=== PATIENT | male | born 1980 | race Caucasian/White ===

== ENCOUNTER 2022-06-23 22:53 | Inpatient (IN) | payer MEDICAID, SELFPAY ==
[2022-06-23 22:56] VITALS: BP 136/80; PULSE 116; RESP 15; TEMP 37.4; O2SAT 98; BMI 42.5
[2022-06-23 22:59] VITALS: BP 136/80; PULSE 114; RESP 16; O2SAT 97
[2022-06-23 23:38] LABS: Absolute Lymphocyte Count 1.86 X10^3/uL (0.83-4.51); Absolute Neutrophil Count 3.5 X10^3/uL (2.0-7.7); Basophil# 0.04 X10^3/uL; Basophil% 0.7 % (0-1); Eosinophil# 0.07 X10^3/uL; Eosinophils% 1.2 % (0-5); Hematocrit 39.9 % (40-54); Hemoglobin 12.4 g/dL (13.0-16.5); Lymphocyte # 1.86 X10^3/ul (0.83-4.51); Lymphocyte % 31.7 % (19-41); Mean Corp Hgb Conc 31.1 g/dL (32-36); Mean Corpuscular Hgb 23.7 pg (27.0-32.0); Mean Corpuscular Volume 76.3 fL (80-94); Mean Platelet Vol. 9.2 fl (6.2-12.0); Monocyte# 0.36 X10^3/uL; Monocyte% 6.1 % (0-10); NRBC Flagged by Analyzer 0 % (0-5); Neutrophil # 3.51 X10^3/uL (2.7-7.7); Neutrophil % 59.8 % (47-70); Platelet Count 318 K/mm3 (150-450); RBC Distribution Width CV 17.9 % (11.6-14.6); RBC Distribution Width SD 46.5 fl (35.1-43.9); Red Blood Count 5.23 M/mm3 (4.6-6.2); White Blood Count 5.9 K/mm3 (4.4-11.0)
--- NOTE | 2022-06-23 23:46 | EX.ED.SAOD ---
HPI History of Present Illness Chief Complaint: Substance Abuse Informant: patient Narrative Narrative: Patient is a 41-year-old male with history of alcohol abuse as well as DTs, hypertension and GERD presenting for request of alcohol detox. Patient states he drinks malt liquor, 15 to 20 cans a day. He is been drinking regularly for 4 months. His last drink was 2 hours prior to arrival. Does use marijuana but denies any other illicit drug use or tobacco use. Try to go to another detox facility in [place] yesterday but had been banned from there. Has not been to our facility before. Denies any physical complaints at this time. PFSH PFS Home Medications aripiprazole 5 mg tablet (Abilify) 5 mg PO DAILY 06/23/22 [History Last Taken Unknown] escitalopram oxalate 20 mg tablet (Lexapro) 20 mg PO DAILY 06/23/22 [History Last Taken Unknown] levothyroxine 150 mcg tablet 150 mcg PO DAILY 06/23/22 [History Last Taken Unknown] lisinopril 40 mg tablet 40 mg PO DAILY 06/23/22 [History Last Taken Unknown] pantoprazole 40 mg tablet,delayed release (Protonix) 40 mg PO DAILY 06/23/22 [History Last Taken Unknown] Allergy/AdvReac Type Severity Reaction Status Date / Time haloperidol [From Haldol] AdvReac Other Verified 06/23/22 22:59 Social History Smoking Status: Former smoker ROS ROS ED Constitutional Constitutional ED: Denies chills or fever(s) Eyes Eyes: Denies change in vision ENT ENT ED: Denies rhinorrhea or sore throat Cardiovascular Cardiovascular: Denies chest pain or palpitations Respiratory/Chest Respiratory/Chest: Denies cough or dyspnea Gastrointestinal Gastrointestinal: Denies abdominal pain, nausea or vomiting Musculoskeletal Musculoskeletal: Denies arthralgias or myalgias Integumentary Denies rash Neurologic Neurologic: Denies headache(s) Psychiatric Psychiatric: Denies anxiety EXAM Physical Exam Const Vital Signs: 06/23/22 22:56 06/23/22 22:59 Temperature 99.3 F H Temperature Source Oral Pulse Rate 116 H 114 H Respiratory Rate 15 16 Blood Pressure 136/80 H 136/80 H Blood Pressure Mean 98 98 Blood Pressure Source Monitor Blood Pressure Position Semi-Fowlers Blood Pressure Location Right Arm Pulse Ox 98 97 Oxygen Delivery Method Room Air Room Air Positive well nourished and obese Constitutional Narrative: Patient singing to himself General Appearance ED: NAD Nutritional Appearance: obese HEENT Reports moist mucous membranes atraumatic Eyes PERRL Neck supple and no JVD Chest Wall inspection of chest normal Resp normal respiratory effort and clear to auscultation bilaterally Cardio regular rate, regular rhythm and no murmurs GI soft to palpation, non-tender and non-distended Neuro oriented x3 and no sensory deficits noted Motor Exam: Negative for general weakness Psych mental status grossly normal and thought process normal Psych Narrative: Patient cooperative but clinically intoxicated Skin Lesions: no lesions Rashes: no rashes MDM MDM MDM Narrative Medical decision making narrative: Patient evaluated for request of alcohol detox. He is agreeable with the plan of care. He is mildly tachycardic in the ER however I do not think he is acutely withdrawing at this time. Will obtain screening labs and discussed the case with hospitalist for admission for detox. Lab Data Labs: Laboratory Results - last 24 hr 06/23/22 06/23/22 06/23/22 23:17 23:17 23:17 WBC 5.9 RBC 5.23 Hgb 12.4 L Hct 39.9 L MCV 76.3 L MCH 23.7 L MCHC 31.1 L RDW Std Deviation 46.5 H RDW Coeff of Nasima 17.9 H Plt Count 318 MPV 9.2 Immature Gran % (Auto) 0.500 Neut % (Auto) 59.8 Lymph % (Auto) 31.7 [place] % (Auto) 6.1 Eos % (Auto) 1.2 Baso % (Auto) 0.7 Absolute Neuts (auto) 3.5 Absolute Lymphs (auto) 1.86 Nucleated RBC % 0 Sodium 146 H Potassium 3.3 L Chloride 112 H Carbon Dioxide 25.0 Anion Gap 9 BUN 7 Creatinine 0.93 Estim Creat Clear Calc 124.93 Est GFR (MDRD) Af Amer 114 Est GFR (MDRD) Non-Af 94 BUN/Creatinine Ratio 7.5 L Glucose 115 H Calcium 8.9 Total Bilirubin 0.20 AST 21 ALT 31 Alkaline Phosphatase 84 Total Protein 7.5 Albumin 3.8 Globulin 3.7 Albumin/Globulin Ratio 1.0 Ur Drug Screen Comment Ethyl Alcohol 234.0 08/03/22 23:54 WBC RBC Hgb Hct MCV MCH MCHC RDW Std Deviation RDW Coeff of Nasima Plt Count MPV Immature Gran % (Auto) Neut % (Auto) Lymph % (Auto) [place] % (Auto) Eos % (Auto) Baso % (Auto) Absolute Neuts (auto) Absolute Lymphs (auto) Nucleated RBC % Sodium Potassium Chloride Carbon Dioxide Anion Gap BUN Creatinine Estim Creat Clear Calc Est GFR (MDRD) Af Amer Est GFR (MDRD) Non-Af BUN/Creatinine Ratio Glucose Calcium Total Bilirubin AST ALT Alkaline Phosphatase Total Protein Albumin Globulin Albumin/Globulin Ratio Ur Drug Screen Comment Ethyl Alcohol Discharge Plan Dx/Rx/DC Orders Clinical Impression: Alcohol abuse, Alcohol intoxication, Hypertension, Hypernatremia, Hypokalemia Disposition Disposition: Acute Care Hospital [facility]
[2022-06-23 23:55] LABS: AST(SGOT) 21 U/L (15-37); Alanine Aminotransfer ALT/SGPT 31 U/L (16-61); Albumin, Serum 3.8 g/dL (3.2-5.0); Alkaline Phosphatase 84 U/L (45-117); Anion Gap 9 (5-15); BUN 7 mg/dL (7-18); BUN/Creat Ratio 7.5 RATIO (10-20); Calcium,Total 8.9 mg/dL (8.5-10.1); Chloride 112 mmol/L (98-107); Creatinine, Serum 0.93 mg/dL (0.70-1.30); EST Glomerular Filtration Rate 94 mL/min (>60); Est Glom Filt Rate - Afr Amer 114 mL/min (>60); Estimated Creatinine Clearance 124.93 ml/min; Globulin 3.7 g/dL (2.2-4.2); Glucose 115 mg/dL (74-106); Potassium 3.3 mmol/L (3.5-5.1); Protein, Total 7.5 g/dL (6.4-8.2); Sodium Level 146 mmol/L (136-145)
[2022-06-24] VITALS (7 sets, daily range): BP systolic 127–158; BP diastolic 74–98; PULSE 74–110; RESP 14–18; TEMP 36.3–37.2; O2SAT 93–98; BMI 42.0
--- NOTE | 2022-06-24 00:09 | PCM.HP.STD ---
HPI - General General Date of Admission: 06/24/22 Date of Service: 06/24/22 Chief Complaint: Request for medical stabilisation HPI Narrative CHEN KIRBY, is a 41 M who presents requesting for medical stabilization. Patient has history of chronic alcohol abuse. He was last in detox more than 6 months ago in [facility]. He drinks more than 12 bottles of beer daily. The EMS was dispatched for a male intoxicated at the [employer] restaurant. Upon arrival, the foundry manager said the patient showed up to the restaurant requesting for the squad, to send him to the hospital for detox, and a Mcchicken sandwich. He called the squad and gave the pito a McChicken. Patient stated to EMS that he presented from [place] and was supposed to be at [facility] in [place], [place] where he was told he did not need detox;he just needs [place]. Patient supposedly left. He admitted to drinking 11 of 24 ounce of steel reserve today. At the time of being seen, patient admits to still feeling intoxicated. He stated that he has history of DTs with hallucinations during the course of his detox. He is tired of living like a drunk. He wants to be clean. Vitals in ED showed blood pressure 136/80, heart rate 116, respiratory 16, temperature 99.3 F, SPO2 90% on room air. His RBC count of 5.9, hemoglobin 12.4, platelet count 318, sodium 146, potassium 3.2, chloride 112, bicarbonate 25, BUN 7, creatinine 0.93, glucose 115, LFTs unremarkable. Urine tox positive for barbiturates, benzodiazepines, cannabinoids. Admitting alcohol level was 234 [facility] Medical History (Updated 06/24/22 @ 00:[address] Vicki Reyes MD) Alcohol abuse Anxiety and depression Hypertension Hypothyroidism Morbid obesity Home Medications aripiprazole 5 mg tablet (Abilify) 5 mg PO DAILY 06/23/22 [History Last Taken Unknown] escitalopram oxalate 20 mg tablet (Lexapro) 20 mg PO DAILY 06/23/22 [History Last Taken Unknown] levothyroxine 150 mcg tablet 150 mcg PO DAILY 06/23/22 [History Last Taken Unknown] lisinopril 40 mg tablet 40 mg PO DAILY 06/23/22 [History Last Taken Unknown] pantoprazole 40 mg tablet,delayed release (Protonix) 40 mg PO DAILY 06/23/22 [History Last Taken Unknown] Allergy/AdvReac Type Severity Reaction Status Date / Time haloperidol [From Haldol] AdvReac Other Verified 06/23/22 22:59 Family History (Updated 06/24/22 @ 00:[address] Vicki Reyes MD) Father Diabetes Mother CAD (coronary artery disease) Surgical History (Updated 06/24/22 @ 00:[address] Vicki Reyes MD) History of appendectomy Social History (Updated 06/24/22 @ 00:[address] Vicki Reyes MD) Smoking Status: Former smoker alcohol intake: current Previous attempts at quittin substance use type: marijuana ROS ROS Narrative Constitutional: Denies: Anorexia, Chills, Fever, Night Sweats, Weight Change Eyes: Denies: Blurred vision, Cataracts, Conjunctivae Inflammation, Pain, Redness, Vision Change HEENT: Denies: Difficulty Hearing, Difficulty Swallowing, Head Aches, Hearing Changes, Sinus Congestion, Sinus Drainage Cardiovascular: Denies: Chest Pain, Orthopnea, Palpitations Respiratory: Denies: Cough, Shortness of breath at rest, Sputum production Gastrointestinal: Admits to nausea denies: Abdominal Pain, Vomiting Genitourinary: Denies: Dysuria Musculoskeletal: Denies: Joint Pain, Joint stiffness, Joint swelling, Joint Tenderness Skin: Denies: Rash, Wounds Neurological: Denies: Numbness, Tingling, Focal weakness Vital Signs Vital Signs Vital Signs: 06/23/22 22:56 06/23/22 22:59 Temperature 99.3 F H Temperature Source Oral Pulse Rate 116 H 114 H Respiratory Rate 15 16 Blood Pressure 136/80 H 136/80 H Blood Pressure Mean 98 98 Blood Pressure Source Monitor Blood Pressure Position Semi-Fowlers Blood Pressure Location Right Arm Pulse Ox 98 97 Oxygen Delivery Method Room Air Room Air Weight Weight: 154.6 kg Body Mass Index (BMI) 42.5 Physical Exam Narrative Physical exam: General: Alert, Oriented x3, Cooperative, appears disheveled, morbidly obese HEENT: Atraumatic Oral: Moist Mucosa Neck: Supple Lungs: Diminished to auscultation Cardiovascular: HS I+II, regular, no murmurs Abdomen: Bowel Sounds Present, Soft, Non Tender Extremities: No edema Skin: No rashes, No breakdown Neurological: Grossly intact Psych/Mental Status: Appropriate Results Lab / Micro Data Result Diagrams: 06/23/22 23:17 06/23/22 23:17 Labs: Laboratory Results - last 24 hr 06/23/22 23:17: WBC 5.9, RBC 5.23, Hgb 12.4 L, Hct 39.9 L, MCV 76.3 L, MCH 23.7 L, MCHC 31.1 L, RDW Std Deviation 46.5 H, RDW Coeff of Nasima 17.9 H, Plt Count 318, MPV 9.2, Immature Gran % (Auto) 0.500, Neut % (Auto) 59.8, Lymph % (Auto) 31.7, Allen % (Auto) 6.1, Eos % (Auto) 1.2, Baso % (Auto) 0.7, Absolute Neuts (auto) 3.5, Absolute Lymphs (auto) 1.86, Nucleated RBC % 0 06/23/22 23:17: Sodium 146 H, Potassium 3.3 L, Chloride 112 H, Carbon Dioxide 25.0, Anion Gap 9, BUN 7, Creatinine 0.93, Estim Creat Clear Calc 124.93, Est GFR (MDRD) Af Amer 114, Est GFR (MDRD) Non-Af 94, BUN/Creatinine Ratio 7.5 L, Glucose 115 H, Calcium 8.9, Total Bilirubin 0.20, AST 21, ALT 31, Alkaline Phosphatase 84, Total Protein 7.5, Albumin 3.8, Globulin 3.7, Albumin/Globulin Ratio 1.0 06/23/22 23:17: Ethyl Alcohol 234.0 06/23/22 23:54: Ur Drug Screen Comment Assessment & Plan Assessment/Plan (1) Alcohol abuse: (2) Alcohol intoxication: (3) Anxiety and depression: (4) Morbid obesity: (5) Hypothyroidism: PLAN: Plan 1. Request for medical stabilization for acute alcohol withdrawal Admitting alcohol level was 234 Admit to [facility], start on phenobarb taper, [facility] withdrawal protocol, folic acid, multivitamin, and thiamine 2. Hypokalemia, replaced, recheck in a.m. 3. Hypernatremia, likely secondary to dehydration, sodium is 146 Continue IV fluids, recheck in a.m. 4. Hypertension, continue lisinopril 5. Hypothyroidism, continue Synthroid 6. GERD, continue PPI 7. Anxiety/depression, continue Lexapro, Abilify, 8. DVT prophylaxis?early ambulation Charges/Coding Visit Charges Inpatient E&M: 84047 Init Hosp L3
[2022-06-24 00:12] LABS: Amphetamine Urine VISTA NEGATIVE (<1000 ng/mL); Barbiturate Urine VISTA POSITIVE (< 200 ng/mL); Benzodiazepine Urine VISTA POSITIVE (< 200 ng/mL); Cocaine Urine VISTA NEGATIVE (< 300 ng/mL); Ecstacy Urine VISTA NEGATIVE (< 500 ng/mL); Methadone Urine VISTA NEGATIVE (< 300 ng/mL); PCP Urine VISTA NEGATIVE (< 25 ng/mL); THC Urine VISTA POSITIVE (< 50 ng/mL); Vista UDS pH Range 4
[2022-06-24] MEDS: Potassium Chloride Oral Tablet 20 MEQ PO ×2 (00:12→02:35)
[2022-06-24] MEDS: 0.9% Normal Saline 1,000 ML 999 ML IV (00:12)
[2022-06-24] MEDS: Phenobarbital 32.4 MG Tablet 64.8 MG PO ×6 (01:30→21:23)
[2022-06-24] MEDS: Lactated Ringers 1,000 ML 100 ML IV ×2 (01:41→11:36)
[2022-06-24] MEDS: Levothyroxine 150 MCG Tablet PO (05:48)
[2022-06-24 06:33] LABS: Absolute Lymphocyte Count 1.78 X10^3/uL (0.83-4.51); Absolute Neutrophil Count 2.7 X10^3/uL (2.0-7.7); Basophil# 0.04 X10^3/uL; Basophil% 0.8 % (0-1); Eosinophil# 0.13 X10^3/uL; Eosinophils% 2.6 % (0-5); Hematocrit 35.9 % (40-54); Hemoglobin 11.6 g/dL (13.0-16.5); Lymphocyte # 1.78 X10^3/ul (0.83-4.51); Lymphocyte % 35.5 % (19-41); Mean Corp Hgb Conc 32.3 g/dL (32-36); Mean Corpuscular Hgb 24.2 pg (27.0-32.0); Mean Corpuscular Volume 74.9 fL (80-94); Mean Platelet Vol. 9.2 fl (6.2-12.0); Monocyte# 0.35 X10^3/uL; NRBC Flagged by Analyzer 0 % (0-5); Neutrophil # 2.69 X10^3/uL (2.7-7.7); Neutrophil % 53.7 % (47-70); Platelet Count 291 K/mm3 (150-450); RBC Distribution Width CV 17.5 % (11.6-14.6); Red Blood Count 4.79 M/mm3 (4.6-6.2)
[2022-06-24 06:46] LABS: ALB/GLOB Ratio 0.9 RATIO (0.9-2.4); AST(SGOT) 21 U/L (15-37); Alanine Aminotransfer ALT/SGPT 32 U/L (16-61); Albumin, Serum 3.2 g/dL (3.2-5.0); Alkaline Phosphatase 79 U/L (45-117); Anion Gap 8 (5-15); BUN 8 mg/dL (7-18); BUN/Creat Ratio 9.9 RATIO (10-20); Calcium,Total 7.9 mg/dL (8.5-10.1); Chloride 112 mmol/L (98-107); Creatinine, Serum 0.81 mg/dL (0.70-1.30); EST Glomerular Filtration Rate 111 mL/min (>60); Est Glom Filt Rate - Afr Amer 135 mL/min (>60); Estimated Creatinine Clearance 143.44 ml/min; Globulin 3.6 g/dL (2.2-4.2); Glucose 96 mg/dL (74-106); Potassium 3.4 mmol/L (3.5-5.1); Protein, Total 6.8 g/dL (6.4-8.2); Sodium Level 146 mmol/L (136-145)
[2022-06-24] MEDS: hydrOXYzine PAM 25 MG Capsule 50 MG PO (08:10)
[2022-06-24] MEDS: ARIPiprazole 5 MG Tablet PO (08:10)
[2022-06-24] MEDS: Pantoprazole Sodium 40 MG Tablet PO (08:10)
[2022-06-24] MEDS: Folic Acid 1 MG Tablet PO (08:10)
[2022-06-24] MEDS: Lisinopril 40 MG Tablet PO (08:11)
[2022-06-24] MEDS: Escitalopram Oxalate 20 MG Tablet PO (08:11)
[2022-06-24] MEDS: Thiamine Hydrochloride 100 MG Tablet PO (08:12)
[2022-06-24] MEDS: Ibuprofen 600 MG Tablet PO ×2 (08:21→19:33)
[2022-06-24] MEDS: Gabapentin 300 MG Capsule PO (12:27)
[2022-06-24] MEDS: Acetaminophen 500 MG Tablet PO (16:09)
--- NOTE | 2022-06-24 16:46 | PCM.PN.HOSP ---
Subjective Subjective Patient was seen and examined today, he is alert and does not appear to be anxious or tremorous. Patient has no complaints of any anxiety. Objective Data Objective Data Vital Signs: Vital Signs Temp Pulse Resp BP Pulse Ox O2 Del Method 97.9 F 95 18 146/89 H 95 Room Air 06/24/22 14:00 06/24/22 14:00 06/24/22 14:00 06/24/22 14:00 06/24/22 14:00 06/24/22 14:00 Oxygen Delivery Method Room Air Weight: 152.5 kg Body Mass Index (BMI) 42.0 Intake & Output: Intake and Output for Last 24 Hours 06/22/22 06/23/22 06/24/22 23:59 23:59 23:59 Intake Total 2471.67 / 2471.67 Balance 2471.67 / 2471.67 Lab / Micro Data Result Diagrams: 06/24/22 05:28 06/24/22 05:28 Labs: Laboratory Results - last 24 hr 06/23/22 23:17: WBC 5.9, RBC 5.23, Hgb 12.4 L, Hct 39.9 L, MCV 76.3 L, MCH 23.7 L, MCHC 31.1 L, RDW Std Deviation 46.5 H, RDW Coeff of Nasima 17.9 H, Plt Count 318, MPV 9.2, Immature Gran % (Auto) 0.500, Neut % (Auto) 59.8, Lymph % (Auto) 31.7, [place] % (Auto) 6.1, Eos % (Auto) 1.2, Baso % (Auto) 0.7, Absolute Neuts (auto) 3.5, Absolute Lymphs (auto) 1.86, Nucleated RBC % 0 06/23/22 23:17: Sodium 146 H, Potassium 3.3 L, Chloride 112 H, Carbon Dioxide 25.0, Anion Gap 9, BUN 7, Creatinine 0.93, Estim Creat Clear Calc 124.93, Est GFR (MDRD) Af Amer 114, Est GFR (MDRD) Non-Af 94, BUN/Creatinine Ratio 7.5 L, Glucose 115 H, Calcium 8.9, Total Bilirubin 0.20, AST 21, ALT 31, Alkaline Phosphatase 84, Total Protein 7.5, Albumin 3.8, Globulin 3.7, Albumin/Globulin Ratio 1.0 06/23/22 23:17: Ethyl Alcohol 234.0 06/23/22 23:54: Urine Opiates Screen NEGATIVE, Urine Methadone Screen NEGATIVE, Ur Barbiturates Screen POSITIVE H, Ur Phencyclidine Scrn NEGATIVE, Ur Amphetamines Screen NEGATIVE, MDMA (Ecstasy) Screen NEGATIVE, U Benzodiazepines Scrn POSITIVE H, Urine Cocaine Screen NEGATIVE, U Cannabinoids Screen POSITIVE H, Ur Drug Screen Comment 06/24/22 05:28: WBC 5.0, RBC 4.79, Hgb 11.6 L, Hct 35.9 L, MCV 74.9 L, MCH 24.2 L, MCHC 32.3, RDW Std Deviation 46.0 H, RDW Coeff of Nasima 17.5 H, Plt Count 291, MPV 9.2, Immature Gran % (Auto) 0.400, Neut % (Auto) 53.7, Lymph % (Auto) 35.5, [place] % (Auto) 7.0, Eos % (Auto) 2.6, Baso % (Auto) 0.8, Absolute Neuts (auto) 2.7, Absolute Lymphs (auto) 1.78, Nucleated RBC % 0 06/24/22 05:28: Sodium 146 H, Potassium 3.4 L, Chloride 112 H, Carbon Dioxide 26.0, Anion Gap 8, BUN 8, Creatinine 0.81, Estim Creat Clear Calc 143.44, Est GFR (MDRD) Af Amer 135, Est GFR (MDRD) Non-Af 111, BUN/Creatinine Ratio 9.9 L, Glucose 96, Calcium 7.9 L, Total Bilirubin 0.20, AST 21, ALT 32, Alkaline Phosphatase 79, Total Protein 6.8, Albumin 3.2, Globulin 3.6, Albumin/Globulin Ratio 0.9 Physical Exam Const alert, oriented x3 and no apparent distress Constitutional Narrative: Patient is morbidly obese General Appearance: cooperative, well kempt and well developed Orientation / Consciousness: awake, oriented to person, oriented to place and oriented to time HEENT normocephalic, head/scalp atraumatic and moist oral mucous membranes Eyes PERRL, EOMs intact bilaterally and conjunctivae normal Neck supple, no JVD and thyroid normal General: trachea midline Resp normal respiratory effort, no retractions, no use of accessory muscles and clear to auscultation bilaterally Auscultation: Negative for rales, rhonchi or wheezes Cardio regular rate, regular rhythm, S1 normal heart sound, S2 normal heart sound, no murmurs, no rub and no gallops GI normal to inspection, nondistended, normoactive bowel sounds, soft to palpation, non-tender and non-distended Extremity no clubbing, cyanosis or edema Skin no rashes or lesions noted General Skin Exam: no breakdown Neuro oriented x3, CN's II-XII intact bilaterally, moves all extremities, no focal motor deficits and no sensory deficits noted Sensorium / Orientation: awake and alert Speech: speech normal Psych Psych Narrative: Patient has flat affect Assessment & Plan Assessment/Plan (1) Alcohol intoxication: PLAN: Plan 1. Acute alcohol withdrawal-patient is nonsymptomatic at this time, continue present medications #2 chronic alcoholism-patient will be seen by addiction outreach and education social worker, he tells this examiner he wants to do an inpatient detox program #3 polysubstance abuse-complicates care, management, recovery, and prognosis #4 hypernatremia and hyperchloremia-etiology unclear, I do not feel this is significant #5 hypokalemia-this is mild, BMP will be rechecked tomorrow #6 morbid obesity-complicates care, management, recovery, and prognosis #7 alcohol intoxication Charges/Coding Visit Charges Inpatient E&M: 94132 Subs Hosp L2
[2022-06-25 00:49] VITALS: BP 156/101; PULSE 84; RESP 14; TEMP 36.4; O2SAT 97
[2022-06-25] MEDS: Phenobarbital 32.4 MG Tablet 64.8 MG PO ×5 (00:53→17:47)
[2022-06-25] MEDS: Acetaminophen 500 MG Tablet PO (04:08)
[2022-06-25] MEDS: Mag Hydrox/Al Hydrox/Simeth 30 ML UDC PO (04:14)
[2022-06-25] MEDS: Levothyroxine 150 MCG Tablet PO (05:57)
[2022-06-25 06:00] VITALS: BP 156/86; PULSE 86; RESP 15; TEMP 36.8; O2SAT 97
[2022-06-25] MEDS: Ondansetron 8 MG Tablet PO (06:50)
[2022-06-25] MEDS: Folic Acid 1 MG Tablet PO (09:13)
[2022-06-25] MEDS: Thiamine Hydrochloride 100 MG Tablet PO (09:13)
[2022-06-25] MEDS: Escitalopram Oxalate 20 MG Tablet PO (09:15)
[2022-06-25] MEDS: ARIPiprazole 5 MG Tablet PO (09:15)
[2022-06-25] MEDS: Lisinopril 40 MG Tablet PO (09:15)
[2022-06-25] MEDS: Pantoprazole Sodium 40 MG Tablet PO (09:15)
[2022-06-25 09:19] VITALS: BP 162/89; PULSE 86; RESP 20; TEMP 37; O2SAT 95
[2022-06-25] MEDS: Gabapentin 300 MG Capsule PO (09:28)
[2022-06-25] MEDS: Dicyclomine 10 MG Capsule 20 MG PO (09:28)
--- NOTE | 2022-06-25 12:31 | ADDICTION ---
This grant writer met with PT to conduct ASAM, MSE, AUDIT assessments and to plan for d/c. PT A+Ox4 and participated actively. All assessments completed and placed in PT's chart. PT plans to f/u with [facility] for residential treatment services in [place] on 06/28/22. The [facility] will provide transportation post d/c from [facility], they will call when they arrive.
[2022-06-25 14:44] VITALS: BP 162/96; PULSE 86; RESP 18; TEMP 37; O2SAT 96
--- NOTE | 2022-06-25 17:49 | PCM.PN.HOSP ---
Subjective Subjective Was seen and examined today, he states he feels sleepy today, patient met with addiction child welfare social worker and has agreed to go to an inpatient detox program when discharged from the hospital. This is set up for 06/28/2022. Objective Data Objective Data Vital Signs: Vital Signs Temp Pulse Resp BP Pulse Ox O2 Del Method 98.6 F 86 18 162/96 H 96 Room Air 06/25/22 14:44 06/25/22 14:44 06/25/22 14:44 06/25/22 14:44 06/25/22 14:44 06/25/22 14:44 Oxygen Delivery Method Room Air Weight: 152.5 kg Body Mass Index (BMI) 42.0 Intake & Output: Intake and Output for Last 24 Hours 06/23/22 06/24/22 06/25/22 23:59 23:59 23:59 Intake Total 2971.67 / 3471.67 1000 / 1000 Balance 2971.67 / 3471.67 1000 / 1000 Lab / Micro Data Result Diagrams: 06/24/22 05:28 06/24/22 05:28 Physical Exam Const alert, oriented x3 and no apparent distress Constitutional Narrative: Patient is morbidly obese General Appearance: cooperative, well kempt and well developed Orientation / Consciousness: awake, oriented to person, oriented to place and oriented to time HEENT normocephalic, head/scalp atraumatic and moist oral mucous membranes Eyes PERRL, EOMs intact bilaterally and conjunctivae normal Neck supple, no JVD and thyroid normal General: trachea midline Resp normal respiratory effort, no retractions, no use of accessory muscles and clear to auscultation bilaterally Auscultation: Negative for rales, rhonchi or wheezes Cardio regular rate, regular rhythm, S1 normal heart sound, S2 normal heart sound, no murmurs, no rub and no gallops GI normal to inspection, nondistended, normoactive bowel sounds, soft to palpation, non-tender and non-distended Extremity no clubbing, cyanosis or edema Skin no rashes or lesions noted General Skin Exam: no breakdown Neuro oriented x3, CN's II-XII intact bilaterally, moves all extremities, no focal motor deficits and no sensory deficits noted Sensorium / Orientation: awake and alert Speech: speech normal Psych Psych Narrative: Patient has flat affect Assessment & Plan Assessment/Plan (1) Alcohol intoxication: PLAN: Plan 1. Acute alcohol withdrawal-patient is nonsymptomatic at this time, continue present medications #2 chronic alcoholism-the plan is for the patient to go to an inpatient detox program on 06/28/2022 if medically stable #3 polysubstance abuse-complicates care, management, recovery, and prognosis #4 hypernatremia and hyperchloremia-etiology unclear, I do not feel this is significant #5 hypokalemia-this is mild, BMP will be rechecked tomorrow #6 morbid obesity-complicates care, management, recovery, and prognosis #7 alcohol intoxication Charges/Coding Visit Charges Inpatient E&M: 94902 Subs Hosp L2
--- NOTE | 2022-06-27 15:04 | DS.PCM_ITS ---
Providers Date of Admission: 06/24/22 Date of Discharge: 06/25/22 Primary Care Physician: No Primary Care Phys Reason For Visit: REQUEST FOR MEDICATION STABILIZATION Diagnosis Discharge Diagnosis (1) Alcohol intoxication: Status: Acute Code(s): F10.929 - Alcohol use, unspecified with intoxication, unspecified Plan 1. Acute alcohol withdrawal-patient is nonsymptomatic at this time, continue present medications #2 chronic alcoholism-the plan is for the patient to go to an inpatient detox program on 06/28/2022 if medically stable #3 polysubstance abuse-complicates care, management, recovery, and prognosis #4 hypernatremia and hyperchloremia-etiology unclear, I do not feel this is significant #5 hypokalemia-this is mild, BMP will be rechecked tomorrow #6 morbid obesity-complicates care, management, recovery, and prognosis #7 alcohol intoxication Medications at Discharge Home Medications aripiprazole 5 mg tablet (Abilify) 5 mg PO DAILY mood 06/23/22 escitalopram oxalate 20 mg tablet (Lexapro) 20 mg PO DAILY depression 06/23/22 levothyroxine 150 mcg tablet 150 mcg PO DAILY thyroid 06/23/22 lisinopril 40 mg tablet 40 mg PO DAILY HTN 06/23/22 pantoprazole 40 mg tablet,delayed release (Protonix) 40 mg PO DAILY GERD 02/09 Hospital Course Operations None Procedures None Summary of Care Provided Minutes Spent on Discharge: 30 Hospital Course: This 41-year-old white male was seen in the emergency room at [facility] requesting services for alcohol detox. Labs in the emergency room showed the patient to have an alcohol level of 234, potassium was low at 3.3, sodium was 146, and the patient's tox screen was positive for barbiturates benzodiazepines and cannabinoids. Patient was admitted to [facility], orders were entered using the alcohol stabilization order set, patient was seen in consultation by addiction geriatric social work professor. Patient had no DTs during his hospitalization. On 06/25/2022, patient was seen and examined: On examination he appeared in good health and spirits. Vital signs as documented. Skin warm and dry and without overt rashes. Neck without JVD, neck was supple, trachea midline, thyroid was normal. Lungs clear bilaterally, normal air movement was noted. Heart exam notable for regular rhythm, normal sounds and absence of murmurs, rubs or gallops. Abdomen unremarkable and without evidence of organomegaly, masses, or abdominal aortic enlargement. Bowel sounds are present, abdomen is not distended. Extremities nonedematous, no cyanosis was noted, no clubbing was noted. Neuro: Cranial nerves II through XII are grossly intact, no focal motor deficits were noted, sensation to light touch and pinprick intact, motor exam 5/5 throughout. Psych: Patient is alert and oriented x3, he does not appear anxious or depressed, he does not appear agitated. At approximately 8 PM on 06/25/2022, patient signed out AMA from the hospital. Weight / BMI Weight Weight: 152.5 kg Body Mass Index (BMI) 42.0 ABG / Lab / Microbiology Data Result Diagrams: 06/24/22 05:28 06/24/22 05:28 Meaningful Use Info Meaningful Use Diagnoses (Choose all that apply): None applicable Discharge Plan Admission Admit Date/Time: 06/24/22 00:05 Attending Provider: David Baptiste Primary Care Provider: Care Physician,Monserrat Primary Consulting Providers: Vicki Reyes Discharge Orders/Prescriptions Prescriptions: No Action pantoprazole [Protonix] 40 mg Tablet,Delayed Release (Dr/Ec) 40 mg PO DAILY levothyroxine 150 mcg Tablet 150 mcg PO DAILY lisinopril 40 mg Tablet 40 mg PO DAILY escitalopram oxalate [Lexapro] 20 mg Tablet 20 mg PO DAILY aripiprazole [Abilify] 5 mg Tablet 5 mg PO DAILY Referrals / Follow Up: Care Physician,No Primary [Primary Care Provider] - Disposition Disposition (needs filled in before D/C Order can be placed): Against Medical Advice Charges/Coding Visit Charges Inpatient E&M: 00132 Disch Hosp
== END 2022-06-25 19:58 | disposition left against medical advice (07) | DRG 770 ==
LOC: ED 06-24 00:26 → MS3 06-24 00:28
PROVIDERS: Admitting Provider Internal Medicine; Emergency Provider Emergency Medicine; Visit Provider Internal Medicine
DX: F10.239 Alcohol dependence with withdrawal, unspecified (principal); E87.0 Hyperosmolality and hypernatremia; E66.01 Morbid (severe) obesity due to excess calories; Z68.41 Body mass index [BMI] 40.0-44.9, adult; F19.10 Other psychoactive substance abuse, uncomplicated; E87.6 Hypokalemia; K21.9 Gastro-esophageal reflux disease without esophagitis; I10 Essential (primary) hypertension; F12.90 Cannabis use, unspecified, uncomplicated; F41.9 Anxiety disorder, unspecified; E03.9 Hypothyroidism, unspecified; E86.0 Dehydration; Z79.899 Other long term (current) drug therapy; Z87.891 Personal history of nicotine dependence; F32.A Depression, unspecified; Z53.29 Procedure and treatment not carried out because of patient's decision for other reasons
CPT/HCPCS: 36415; 80053; 80307; 82077; 85025; 99285; J7120; A4216

== ENCOUNTER 2022-06-26 02:45 | Emergency (ER) | payer MEDICAID, SELFPAY ==
[2022-06-26] VITALS (7 sets, daily range): BP systolic 125; BP diastolic 91; PULSE 101–119; RESP 14–20; TEMP 36.4; O2SAT 96; BMI 43.9
--- NOTE | 2022-06-26 03:03 | EKG12_ITS ---
Test Reason : [facility] Blood Pressure : / mmHG Vent. Rate : 113 BPM Atrial Rate : 113 BPM P-R Int : 146 ms QRS Dur : 078 ms QT Int : 314 ms P-R-T Axes : 024 -03 013 degrees QTc Int : 430 ms Sinus tachycardia Otherwise normal ECG Confirmed by DANY WILKINS, ABA ([id number]), editor index ILIA MERCADO ([id number]) on 06/28/2022 1:15:41 PM Referred By: AKASH Confirmed By:ABA SAENZ MD
[2022-06-26 03:24] LABS: Absolute Lymphocyte Count 1.87 X10^3/uL (0.83-4.51); Basophil# 0.04 X10^3/uL; Basophil% 0.5 % (0-1); Eosinophils% 2.7 % (0-5); Hematocrit 40.6 % (40-54); Hemoglobin 12.5 g/dL (13.0-16.5); Lymphocyte # 1.87 X10^3/ul (0.83-4.51); Mean Corp Hgb Conc 30.8 g/dL (32-36); Mean Corpuscular Hgb 23.6 pg (27.0-32.0); Mean Corpuscular Volume 76.6 fL (80-94); Mean Platelet Vol. 8.7 fl (6.2-12.0); Monocyte# 0.38 X10^3/uL; Monocyte% 5.1 % (0-10); NRBC Flagged by Analyzer 0 % (0-5); Neutrophil # 4.98 X10^3/uL (2.7-7.7); Neutrophil % 66.4 % (47-70); Platelet Count 308 K/mm3 (150-450); RBC Distribution Width SD 45.8 fl (35.1-43.9); White Blood Count 7.5 K/mm3 (4.4-11.0)
--- NOTE | 2022-06-26 03:27 | ED.RN ---
per dr. garza no sitter needed at this time
--- NOTE | 2022-06-26 03:49 | EDS_ITS ---
HPI History of Present Illness Chief Complaint: Suicidal Narrative Narrative: Patient is a 41-year-old male with past medical history of hypertension GERD alcohol abuse and previous delirium tremens. He was seen on June 24 secondary to alcohol intoxication and request for detox. He was admitted to the hospital at that time but then left AGAINST MEDICAL ADVICE on June 25. He reportedly walked across the street to the gas station where he brought alcohol and began drinking. He states he drank 9 out of the 10 beers that he bought and then was having thoughts of suicidal ideation and secondary to this called the police who then brought him to the hospital for repeat evaluation. The patient states he plans to either overdose on fentanyl or take a pistol and shoot himself in the mouth. He states that he has been admitted to [facility] as well as [facility] in the past secondary to suicidal ideation. He denies any history of suicide attempt. [facility] Medical History Alcohol abuse Anxiety and depression Hypertension Hypothyroidism Morbid obesity Home Medications aripiprazole 5 mg tablet (Abilify) 5 mg PO DAILY mood 06/23/22 [History Last Taken 06/21/22] escitalopram oxalate 20 mg tablet (Lexapro) 20 mg PO DAILY depression 06/23/22 [History Last Taken 06/21/22] levothyroxine 150 mcg tablet 150 mcg PO DAILY thyroid 06/23/22 [History Last Taken 06/21/22] lisinopril 40 mg tablet 40 mg PO DAILY HTN 06/23/22 [History Last Taken 06/21/22] pantoprazole 40 mg tablet,delayed release (Protonix) 40 mg PO DAILY GERD 06/23/22 [History Last Taken 06/21/22] Allergy/AdvReac Type Severity Reaction Status Date / Time haloperidol [From Haldol] AdvReac Other Verified 06/26/22 02:50 Family History (Updated 06/24/22 @ 00:[address] Vicki Reyes MD) Father Diabetes Mother CAD (coronary artery disease) Surgical History History of appendectomy Social History (Updated 06/24/22 @ 00:[address] Vicki Reyes MD) Smoking Status: Former smoker alcohol intake: current Previous attempts at quittin substance use type: marijuana ROS ROS ED Constitutional Constitutional ED: Denies chills or fever(s) ENT ENT ED: Denies sore throat Cardiovascular Cardiovascular: Denies chest pain Respiratory/Chest Respiratory/Chest: Denies cough or dyspnea Gastrointestinal Gastrointestinal: Denies abdominal pain, diarrhea, nausea or vomiting Genitourinary Genitourinary ED: Denies dysuria Musculoskeletal Musculoskeletal: Denies myalgias Integumentary Denies rash Neurologic Neurologic: Denies headache(s) Psychiatric Psychiatric: Reports anxiety, depression, suicidal ideation and suicidal thoughts Hematologic/Lymphatic Hematologic/Lymphatic: Denies easy bleeding or easy bruising EXAM Physical Exam Const Vital Signs: 06/26/22 02:46 06/26/22 03:45 06/26/22 04:45 Temperature 97.5 F L Temperature Source Temporal Pulse Rate 119 H Respiratory Rate 20 H 16 14 Blood Pressure 125/91 H Blood Pressure Mean 102 Pulse Ox 96 Oxygen Delivery Method Room Air Positive well nourished, well developed and obese General Appearance ED: well developed Nutritional Appearance: obese Eyes Eyes Narrative: Pupils are dilated and slightly sluggish to respond with scleral injection consistent with alcohol use. Extraocular muscles are intact Neck supple Resp normal respiratory effort and clear to auscultation bilaterally Cardio regular rhythm Rate: tachycardic and other Other Details: Tachycardic rate with regular rhythm Radial pulses are +2-4 bilaterally are equal and symmetric GI normal to inspection, nondistended, normoactive bowel sounds, non-tender and non-distended GI Narrative: No voluntary guarding or rigidity no pulsatile mass or fluid wave Auscultation: normoactive bowel sounds Palpation: soft Extremity normal to inspection Extremity Narrative: No asymmetric edema no pitting edema negative Homans' sign bilaterally Neuro oriented x3 and CN's II-XII intact bilaterally Sensorium / Orientation: alert Psych Psych Narrative: Patient reports suicidal ideation Skin no rashes or lesions noted MDM MDM MDM Narrative Medical decision making narrative: Patient presented to the ER mildly tachycardic but otherwise in no acute distress. He reported drinking when he left the hospital earlier today and but now is voicing more suicidal ideation and concern for detox. Secondary to his suicidal ideation and elected perform a basic psychiatric screening exam. Blood work revealed elevated alcohol consistent with his reported use but otherwise no clinically significant finding. I did discuss the case with the hospitalist about possible readmission to the detox program as he had just left AGAINST MEDICAL ADVICE. However at this time as his presentation is for suicidal ideation they feel a psychiatric treatment option would be more appropriate. Therefore at this time patient will be watched in the ER. He will have his blood redrawn at 8 AM to confirm his alcohol level is less than 100. At that time as he will be medically sober if he is still voicing suicidal ideation then he will undergo a further psychiatric evaluation by social work or crisis center and he may need placed in a psychiatric facility if deemed necessary. At this time the patient is medically cleared for placement/transfer to a psychiatric facility Lab Data Attestation: I reviewed the patient's lab results. Labs: Laboratory Results - last 24 hr 06/26/22 06/26/22 06/26/22 03:18 03:18 03:18 WBC 7.5 RBC 5.30 Hgb 12.5 L Hct 40.6 MCV 76.6 L MCH 23.6 L MCHC 30.8 L RDW Std Deviation 45.8 H RDW Coeff of Nasima 17.0 H Plt Count 308 MPV 8.7 Immature Gran % (Auto) 0.300 Neut % (Auto) 66.4 Lymph % (Auto) 25.0 [place] % (Auto) 5.1 Eos % (Auto) 2.7 Baso % (Auto) 0.5 Absolute Neuts (auto) 5.0 Absolute Lymphs (auto) 1.87 Nucleated RBC % 0 Sodium 142 Potassium 3.9 Chloride 109 H Carbon Dioxide 24.0 Anion Gap 9 BUN 7 Creatinine 0.92 Estim Creat Clear Calc 126.29 Est GFR (MDRD) Af Amer 116 Est GFR (MDRD) Non-Af 96 BUN/Creatinine Ratio 7.6 L Glucose 94 Calcium 8.6 Total Bilirubin 0.20 Direct Bilirubin 0.05 AST 20 ALT 29 Alkaline Phosphatase 85 Total Protein 7.5 Albumin 3.6 Globulin 3.9 Salicylates < 1.7 L Acetaminophen < 2.0 L Ethyl Alcohol 189.0 Discharge Plan Triage Chief Complaint: Suicidal ED Provider: Malvin Martins Dx/Rx/DC Orders Clinical Impression: Alcohol intoxication, Suicidal ideation Prescriptions: No Action pantoprazole [Protonix] 40 mg Tablet,Delayed Release (Dr/Ec) 40 mg PO DAILY levothyroxine 150 mcg Tablet 150 mcg PO DAILY lisinopril 40 mg Tablet 40 mg PO DAILY escitalopram oxalate [Lexapro] 20 mg Tablet 20 mg PO DAILY aripiprazole [Abilify] 5 mg Tablet 5 mg PO DAILY Primary Care Provider: Care Physician,No Primary Referrals: Care Physician,No Primary [Primary Care Provider] -
[2022-06-26 03:55] LABS: AST(SGOT) 20 U/L (15-37); Alanine Aminotransfer ALT/SGPT 29 U/L (16-61); Albumin, Serum 3.6 g/dL (3.2-5.0); Alkaline Phosphatase 85 U/L (45-117); Anion Gap 9 (5-15); BUN 7 mg/dL (7-18); BUN/Creat Ratio 7.6 RATIO (10-20); Bilirubin, Direct 0.05 mg/dL (0.00-0.30); Calcium,Total 8.6 mg/dL (8.5-10.1); Chloride 109 mmol/L (98-107); Creatinine, Serum 0.92 mg/dL (0.70-1.30); EST Glomerular Filtration Rate 96 mL/min (>60); Est Glom Filt Rate - Afr Amer 116 mL/min (>60); Estimated Creatinine Clearance 126.29 ml/min; Globulin 3.9 g/dL (2.2-4.2); Glucose 94 mg/dL (74-106); Potassium 3.9 mmol/L (3.5-5.1); Protein, Total 7.5 g/dL (6.4-8.2); Sodium Level 142 mmol/L (136-145)
[2022-06-26 03:57] LABS: Acetaminophen (Tylenol) Level < 2.0 ug/mL (10.0-30.0); Salicylate < 1.7 mg/dL (2.8-20.0)
--- NOTE | 2022-06-26 09:08 | NURSING ---
CRISIS AWARE PT NEEDS TO BE SEEN; CHART FAXED TO THEM
--- NOTE | 2022-06-26 11:08 | EX.ED.VIS.PS ---
HPI HPI - Psych History of Present Illness Chief Complaint: Suicidal PFSH PFSH Medical History Alcohol abuse Anxiety and depression Hypertension Hypothyroidism Morbid obesity Home Medications aripiprazole 5 mg tablet (Abilify) 5 mg PO DAILY mood 06/23/22 [History Last Taken 06/21/22] escitalopram oxalate 20 mg tablet (Lexapro) 20 mg PO DAILY depression 06/23/22 [History Last Taken 06/21/22] levothyroxine 150 mcg tablet 150 mcg PO DAILY thyroid 06/23/22 [History Last Taken 06/21/22] lisinopril 40 mg tablet 40 mg PO DAILY HTN 06/23/22 [History Last Taken 06/21/22] pantoprazole 40 mg tablet,delayed release (Protonix) 40 mg PO DAILY GERD 06/23/22 [History Last Taken 06/21/22] Allergy/AdvReac Type Severity Reaction Status Date / Time haloperidol [From Haldol] AdvReac Other Verified 06/26/22 02:50 Family History (Updated 06/24/22 @ 00:[address] Vicki Reyes MD) Father Diabetes Mother CAD (coronary artery disease) Surgical History History of appendectomy Social History (Updated 06/24/22 @ 00:[address] Vicki Reyes MD) Smoking Status: Former smoker alcohol intake: current Previous attempts at quittin substance use type: marijuana EXAM Physical Exam Const Vital Signs: 06/26/22 02:46 06/26/22 03:45 06/26/22 04:45 Temperature 97.5 F L Temperature Source Temporal Pulse Rate 119 H Respiratory Rate 20 H 16 14 Blood Pressure 125/91 H Blood Pressure Mean 102 Pulse Ox 96 Oxygen Delivery Method Room Air 06/26/22 05:45 06/26/22 08:18 06/26/22 10:34 Temperature Temperature Source Pulse Rate 110 H Respiratory Rate 16 18 14 Blood Pressure Blood Pressure Mean Pulse Ox Oxygen Delivery Method [facility] MDM Lab Data Labs: Laboratory Results - last 24 hr 06/26/22 06/26/22 06/26/22 03:18 03:18 03:18 WBC 7.5 RBC 5.30 Hgb 12.5 L Hct 40.6 MCV 76.6 L MCH 23.6 L MCHC 30.8 L RDW Std Deviation 45.8 H RDW Coeff of Nasima 17.0 H Plt Count 308 MPV 8.7 Immature Gran % (Auto) 0.300 Neut % (Auto) 66.4 Lymph % (Auto) 25.0 [place] % (Auto) 5.1 Eos % (Auto) 2.7 Baso % (Auto) 0.5 Absolute Neuts (auto) 5.0 Absolute Lymphs (auto) 1.87 Nucleated RBC % 0 Sodium 142 Potassium 3.9 Chloride 109 H Carbon Dioxide 24.0 Anion Gap 9 BUN 7 Creatinine 0.92 Estim Creat Clear Calc 126.29 Est GFR (MDRD) Af Amer 116 Est GFR (MDRD) Non-Af 96 BUN/Creatinine Ratio 7.6 L Glucose 94 Calcium 8.6 Total Bilirubin 0.20 Direct Bilirubin 0.05 AST 20 ALT 29 Alkaline Phosphatase 85 Total Protein 7.5 Albumin 3.6 Globulin 3.9 Salicylates < 1.7 L Acetaminophen < 2.0 L Ethyl Alcohol 189.0 06/26/22 08:15 WBC RBC Hgb Hct MCV MCH MCHC RDW Std Deviation RDW Coeff of Nasima Plt Count MPV Immature Gran % (Auto) Neut % (Auto) Lymph % (Auto) [place] % (Auto) Eos % (Auto) Baso % (Auto) Absolute Neuts (auto) Absolute Lymphs (auto) Nucleated RBC % Sodium Potassium Chloride Carbon Dioxide Anion Gap BUN Creatinine Estim Creat Clear Calc Est GFR (MDRD) Af Amer Est GFR (MDRD) Non-Af BUN/Creatinine Ratio Glucose Calcium Total Bilirubin Direct Bilirubin AST ALT Alkaline Phosphatase Total Protein Albumin Globulin Salicylates Acetaminophen Ethyl Alcohol 87.0 Discharge Plan Triage Chief Complaint: Suicidal ED Provider: Malvin Martins Dx/Rx/DC Orders Clinical Impression: Alcohol intoxication, Suicidal ideation Instructions: ED Depression, ED Alcohol Intoxication Prescriptions: No Action pantoprazole [Protonix] 40 mg Tablet,Delayed Release (Dr/Ec) 40 mg PO DAILY levothyroxine 150 mcg Tablet 150 mcg PO DAILY lisinopril 40 mg Tablet 40 mg PO DAILY escitalopram oxalate [Lexapro] 20 mg Tablet 20 mg PO DAILY aripiprazole [Abilify] 5 mg Tablet 5 mg PO DAILY Primary Care Provider: Care Physician,No Primary Referrals: Brittni Nettles MD [Med Staff - Moderate Needs Teacher] - 3-5 Days Care Physician,No Primary [Primary Care Provider] - Activity Restrictions/Additional Instructions: Follow-up with crisis as advised. Disposition Disposition: Home, Self Care
--- NOTE | 2022-06-26 11:42 | CM.ED ---
Jennifer was advised by Cedric, Treatment Navigator, that patient was accepted at [facility] with contact being Vinny Rankin [phone]. JENNIFER called Xenia in the ED. Xenia said that she spoken to patient about the resources that Crisis had provided and patient said I [facility] [place] [facility] and then back to [facility]. JENNIFER asked Xenia, as this show card writer was on PCU, if patient wanted name of the treatment center that the addiction/ treatment navigator had arranged for him and patient declined information stating he was going back to [place]. JENNIFER updated Cedric addiction/treatment navigator. Danelle POOLE
--- NOTE | 2022-06-26 12:01 | ED.RN ---
counseling center has still not faxed safety plan for pt to sign. verbal safety plan was obtained via phone with the counseling center. the pt is no longer pinked slipped and is to be discharged. pt is increasing getting frustrated d/t the waiting on the faxed paper from the counseling center.
== END 2022-06-26 12:04 | disposition home or self-care (01) ==
PROVIDERS: Emergency Provider Emergency Medicine; Visit Provider Emergency Medicine
DX: F10.129 Alcohol abuse with intoxication, unspecified (principal); Z68.41 Body mass index [BMI] 40.0-44.9, adult; E66.9 Obesity, unspecified; F12.90 Cannabis use, unspecified, uncomplicated; I10 Essential (primary) hypertension; Z87.891 Personal history of nicotine dependence; R45.851 Suicidal ideations; F41.9 Anxiety disorder, unspecified; F32.A Depression, unspecified; Z79.899 Other long term (current) drug therapy; E03.9 Hypothyroidism, unspecified; K21.9 Gastro-esophageal reflux disease without esophagitis; Y90.9 Presence of alcohol in blood, level not specified
CPT/HCPCS: 80048; 80076; 80329; 82077; 85025; 87811; 93005; 99283; G0480

== ENCOUNTER 2022-07-28 19:46 | Emergency (ER) | payer MEDICAID, SELFPAY ==
[2022-07-28 19:47] VITALS: BP 152/98; PULSE 115; RESP 18; TEMP 37.2; O2SAT 93; BMI 43.8
[2022-07-28 20:05] LABS: Mucous, Urine 0 SEEN /hpf (<or=2+); Red Blood Cells-Urine 0 SEEN /hpf (0-5); Squamous Epithelial Cells - UA 0 SEEN /hpf (0-5); White Blood Cells 0 SEEN /hpf (0-5)
[2022-07-28 20:08] LABS: Color, Urine Straw (Yellow); Glucose, Dipstick Normal (Normal); Ketone-Dipstick Negative (Negative); Leukocyte Esterase-Dipstick Negative /ul (Negative); Nitrite-Dipstick Negative (Negative); Occult Blood-Urine Negative /ul (Negative); Protein-Dipstick 15 mg/dl (Negative); Specific Gravity, Urine 1.015 (1.002-1.030); Urine Bilirubin Dipstick Negative (Negative); Urine Clarity Clear (Clear); Urine Urobilinogen Normal (Normal)
[2022-07-28 20:21] LABS: Bacteria RARE /hpf (None Seen)
[2022-07-28 20:26] LABS: Amphetamine Urine VISTA NEGATIVE (<1000 ng/mL); Barbiturate Urine VISTA POSITIVE (< 200 ng/mL); Benzodiazepine Urine VISTA POSITIVE (< 200 ng/mL); Cocaine Urine VISTA NEGATIVE (< 300 ng/mL); Ecstacy Urine VISTA NEGATIVE (< 500 ng/mL); Methadone Urine VISTA NEGATIVE (< 300 ng/mL); PCP Urine VISTA NEGATIVE (< 25 ng/mL); THC Urine VISTA POSITIVE (< 50 ng/mL); Vista UDS pH Range 5
--- NOTE | 2022-07-28 22:22 | EKG12_ITS ---
Test Reason : DYSRHYTHMIA Blood Pressure : / mmHG Vent. Rate : 105 BPM Atrial Rate : 105 BPM P-R Int : 142 ms QRS Dur : 084 ms QT Int : 332 ms P-R-T Axes : 027 015 033 degrees QTc Int : 438 ms Sinus tachycardia Otherwise normal ECG Confirmed by DANY WILKINS, ABA ([id number]), website/blog editor ILIA MERCADO ([id number]) on 08/02/2022 11:07:45 AM Referred By: AKASH Confirmed By:ABA SAENZ MD
--- NOTE | 2022-07-28 22:24 | EX.ED.DYSGE1 ---
HPI History of Present Illness Chief Complaint: Suicidal Narrative Narrative: Patient is a 41-year-old male with past medical history of hypertension and hypothyroidism who does not take meds because he is homeless. Despite this he states he drinks 15 tall boys a day and has been feeling depressed lately and has thoughts of suicide. He states his plan is to take a knife to his throat. He states he thought about suicide in the past but has never attempted. He does also admit to daily marijuana use but denies any other illicit substance and at this time has no complaints other than his increasing depression with suicidal ideation. [facility] Medical History Alcohol abuse Alcohol intoxication Anxiety and depression Hypernatremia Hypertension Hypokalemia Hypothyroidism Morbid obesity Home Medications aripiprazole 5 mg tablet (Abilify) 5 mg PO DAILY mood 06/23/22 [History Last Taken 06/21/22] escitalopram oxalate 20 mg tablet (Lexapro) 20 mg PO DAILY depression 06/23/22 [History Last Taken 06/21/22] levothyroxine 150 mcg tablet 150 mcg PO DAILY thyroid 06/23/22 [History Last Taken 06/21/22] lisinopril 40 mg tablet 40 mg PO DAILY HTN 06/23/22 [History Last Taken 06/21/22] pantoprazole 40 mg tablet,delayed release (Protonix) 40 mg PO DAILY GERD 06/23/22 [History Last Taken 06/21/22] Allergy/AdvReac Type Severity Reaction Status Date / Time haloperidol [From Haldol] AdvReac Other Verified 07/28/22 19:50 Family History (Updated 06/24/22 @ 00:[address] Vicki Reyes MD) Father Diabetes Mother CAD (coronary artery disease) Surgical History History of appendectomy Social History (Updated 06/24/22 @ 00:[address] Vicki Reyes MD) Smoking Status: Former smoker alcohol intake: current Previous attempts at quittin substance use type: marijuana ROS ROS ED Constitutional Constitutional ED: Denies chills or fever(s) ENT ENT ED: Denies sore throat Cardiovascular Cardiovascular: Denies chest pain Respiratory/Chest Respiratory/Chest: Denies cough or dyspnea Gastrointestinal Gastrointestinal: Denies abdominal pain, diarrhea, nausea or vomiting Genitourinary Genitourinary ED: Denies dysuria Musculoskeletal Musculoskeletal: Denies myalgias Integumentary Denies rash Neurologic Neurologic: Denies headache(s) Psychiatric Psychiatric: Reports depression, suicidal ideation and suicidal thoughts Hematologic/Lymphatic Hematologic/Lymphatic: Denies easy bleeding or easy bruising EXAM Physical Exam Const Vital Signs: 07/28/22 19:47 07/28/22 22:39 07/29/22 02:38 Temperature 99.0 F Temperature Source Temporal Pulse Rate 115 H 78 Respiratory Rate 18 16 18 Blood Pressure 152/98 H 145/78 H Blood Pressure Mean 116 100 Pulse Ox 93 98 Oxygen Delivery Method Room Air Room Air 07/29/22 04:09 07/29/22 05:37 07/29/22 06:01 Temperature Temperature Source Pulse Rate 94 Respiratory Rate 18 16 18 Blood Pressure 138/60 H Blood Pressure Mean 86 Pulse Ox 97 Oxygen Delivery Method Room Air Positive well nourished and well developed General Appearance ED: well developed HEENT Reports moist mucous membranes Eyes PERRL and EOMs intact bilaterally Neck supple Resp normal respiratory effort and clear to auscultation bilaterally Cardio regular rhythm Rate: tachycardic GI normal to inspection, nondistended, normoactive bowel sounds, non-tender, non-distended and no masses Auscultation: normoactive bowel sounds Palpation: soft Extremity normal to inspection Neuro oriented x3 and CN's II-XII intact bilaterally Sensorium / Orientation: alert Psych Psych Narrative: Patient has a flat/depressed affect with suicidal ideation Skin no rashes or lesions noted MDM MDM MDM Narrative Medical decision making narrative: Patient was brought to the ER by police after stating he had wanted to hurt himself. In the ER patient states his plan is to take a knife and slit his throat. Secondary to his suicidal ideation with a plan a basic medical screening exam was performed. The patient's talk screen shows he has multiple drugs in his system and his alcohol level is elevated at 157 consistent with his history of daily alcohol use. Secondary to this he was watched in the ER until his alcohol level was rechecked and is now legally sober at 51. Following this crisis center was contacted and they evaluated the patient. At this time they feel he would benefit from inpatient treatment. And therefore will attempt to work on placement secondary to this. Patient was given 2 mg of Ativan and 50 mg of oral Librium secondary to mild withdrawal symptoms in the ER. His TSH is elevated consistent with his history of hypothyroidism and the fact he has not been taking medication. Despite this however he is not showing any signs of myxedema coma or thyroid storm. Therefore at this time patient has been medically cleared for placement/transfer to a psychiatric hospital Lab Data Attestation: I reviewed the patient's lab results. Labs: Laboratory Results - last 24 hr 07/28/22 07/28/22 07/28/22 19:58 19:58 22:48 WBC 6.2 RBC 4.53 L Hgb 10.7 L Hct 34.5 L MCV 76.2 L MCH 23.6 L MCHC 31.0 L RDW Std Deviation 48.9 H RDW Coeff of Nasima 18.0 H Plt Count 264 MPV 8.8 Immature Gran % (Auto) 0.300 Neut % (Auto) 69.4 Lymph % (Auto) 21.0 [place] % (Auto) 5.8 Eos % (Auto) 2.9 Baso % (Auto) 0.6 Absolute Neuts (auto) 4.3 Absolute Lymphs (auto) 1.31 Nucleated RBC % 0 Sodium Potassium Chloride Carbon Dioxide Anion Gap BUN Creatinine Estim Creat Clear Calc Est GFR (MDRD) Af Amer Est GFR (MDRD) Non-Af BUN/Creatinine Ratio Glucose Calcium Magnesium Total Bilirubin Direct Bilirubin AST ALT Alkaline Phosphatase Total Protein Albumin Globulin TSH Urine Color Straw Urine Clarity Clear Urine pH 6.0 Ur Specific [place] 1.015 Urine Protein 15 H Urine Glucose (UA) Normal Urine Ketones Negative Urine Occult Blood Negative Urine Nitrite Negative Urine Bilirubin Negative Urine Urobilinogen Normal Ur Leukocyte Esterase Negative Urine RBC 0 SEEN Urine WBC 0 SEEN Ur Squamous Epith Cells 0 SEEN Urine Bacteria RARE Urine Mucus 0 SEEN Salicylates Urine Opiates Screen NEGATIVE Urine Methadone Screen NEGATIVE Acetaminophen Ur Barbiturates Screen POSITIVE H Ur Phencyclidine Scrn NEGATIVE Ur Amphetamines Screen NEGATIVE MDMA (Ecstasy) Screen NEGATIVE U Benzodiazepines Scrn POSITIVE H Urine Cocaine Screen NEGATIVE U Cannabinoids Screen POSITIVE H Ur Drug Screen Comment Ethyl Alcohol 07/28/22 07/28/22 07/29/22 22:48 22:48 02:23 WBC RBC Hgb Hct MCV MCH MCHC RDW Std Deviation RDW Coeff of Nasima Plt Count MPV Immature Gran % (Auto) Neut % (Auto) Lymph % (Auto) [place] % (Auto) Eos % (Auto) Baso % (Auto) Absolute Neuts (auto) Absolute Lymphs (auto) Nucleated RBC % Sodium 140 Potassium 3.7 Chloride 103 Carbon Dioxide 25.0 Anion Gap 12 BUN 9 Creatinine 0.80 Estim Creat Clear Calc 149.19 Est GFR (MDRD) Af Amer 136 Est GFR (MDRD) Non-Af 112 BUN/Creatinine Ratio 11.2 Glucose 93 Calcium 8.3 L Magnesium 2.2 Total Bilirubin 0.30 Direct Bilirubin < 0.05 AST 28 ALT 33 Alkaline Phosphatase 106 Total Protein 7.1 Albumin 3.3 Globulin 3.8 TSH 14.70 H Urine Color Urine Clarity Urine pH Ur Specific [place] Urine Protein Urine Glucose (UA) Urine Ketones Urine Occult Blood Urine Nitrite Urine Bilirubin Urine Urobilinogen Ur Leukocyte Esterase Urine RBC Urine WBC Ur Squamous Epith Cells Urine Bacteria Urine Mucus Salicylates < 1.7 L Urine Opiates Screen Urine Methadone Screen Acetaminophen < 2.0 L Ur Barbiturates Screen Ur Phencyclidine Scrn Ur Amphetamines Screen MDMA (Ecstasy) Screen U Benzodiazepines Scrn Urine Cocaine Screen U Cannabinoids Screen Ur Drug Screen Comment Ethyl Alcohol 157.0 51.0 Discharge Plan Triage Chief Complaint: Suicidal ED Provider: Malvin Martins Dx/Rx/DC Orders Clinical Impression: Depression with suicidal ideation, Alcohol abuse, Hypothyroidism Prescriptions: No Action pantoprazole [Protonix] 40 mg Tablet,Delayed Release (Dr/Ec) 40 mg PO DAILY levothyroxine 150 mcg Tablet 150 mcg PO DAILY lisinopril 40 mg Tablet 40 mg PO DAILY escitalopram oxalate [Lexapro] 20 mg Tablet 20 mg PO DAILY aripiprazole [Abilify] 5 mg Tablet 5 mg PO DAILY Primary Care Provider: Care Physician,No Primary Referrals: Care Physician,No Primary [Primary Care Provider] -
[2022-07-28 22:39] VITALS: BP 145/78; PULSE 78; RESP 16; O2SAT 98
[2022-07-28 22:59] LABS: Absolute Lymphocyte Count 1.31 X10^3/uL (0.83-4.51); Absolute Neutrophil Count 4.3 X10^3/uL (2.0-7.7); Basophil# 0.04 X10^3/uL; Basophil% 0.6 % (0-1); Eosinophil# 0.18 X10^3/uL; Eosinophils% 2.9 % (0-5); Hematocrit 34.5 % (40-54); Hemoglobin 10.7 g/dL (13.0-16.5); Lymphocyte # 1.31 X10^3/ul (0.83-4.51); Mean Corpuscular Hgb 23.6 pg (27.0-32.0); Mean Corpuscular Volume 76.2 fL (80-94); Mean Platelet Vol. 8.8 fl (6.2-12.0); Monocyte# 0.36 X10^3/uL; Monocyte% 5.8 % (0-10); NRBC Flagged by Analyzer 0 % (0-5); Neutrophil # 4.33 X10^3/uL (2.7-7.7); Neutrophil % 69.4 % (47-70); Platelet Count 264 K/mm3 (150-450); RBC Distribution Width SD 48.9 fl (35.1-43.9); Red Blood Count 4.53 M/mm3 (4.6-6.2); White Blood Count 6.2 K/mm3 (4.4-11.0)
[2022-07-28 23:30] LABS: AST(SGOT) 28 U/L (15-37); Acetaminophen (Tylenol) Level < 2.0 ug/mL (10.0-30.0); Alanine Aminotransfer ALT/SGPT 33 U/L (16-61); Albumin, Serum 3.3 g/dL (3.2-5.0); Alkaline Phosphatase 106 U/L (45-117); Anion Gap 12 (5-15); BUN 9 mg/dL (7-18); BUN/Creat Ratio 11.2 RATIO (10-20); Bilirubin, Direct < 0.05 mg/dL (0.00-0.30); Calcium,Total 8.3 mg/dL (8.5-10.1); Chloride 103 mmol/L (98-107); EST Glomerular Filtration Rate 112 mL/min (>60); Est Glom Filt Rate - Afr Amer 136 mL/min (>60); Estimated Creatinine Clearance 149.19 ml/min; Globulin 3.8 g/dL (2.2-4.2); Glucose 93 mg/dL (74-106); Magnesium 2.2 mg/dL (1.6-2.6); Potassium 3.7 mmol/L (3.5-5.1); Protein, Total 7.1 g/dL (6.4-8.2); Salicylate < 1.7 mg/dL (2.8-20.0); Sodium Level 140 mmol/L (136-145)
[2022-07-29] VITALS (18 sets, daily range): BP systolic 130–158; BP diastolic 60–108; PULSE 94–116; RESP 14–18; TEMP 37.1; O2SAT 94–99
--- NOTE | 2022-07-29 03:20 | NURSING ---
CALLED CRISIS AT [phone]
[2022-07-29] MEDS: LORazepam 2 MG/ML Syringe IV ×2 (04:26→12:18)
[2022-07-29] MEDS: chlordiazePOXIDE 25 MG Capsule 50 MG PO (05:11)
--- NOTE | 2022-07-29 08:15 | ED.RN ---
Sitter at bedside,breakfast meal tray delivered to patient but sleeping at time
--- NOTE | 2022-07-29 10:00 | ED.RN ---
PATIENT AWAKE NOW AND EATING BREAKFAST AT THIS TIME. DENIES NEEDS, SITTER AT BEDSIDE
--- NOTE | 2022-07-29 11:38 | CM.ED ---
JENNIFER is familiar with patient. On 06/26/22 this entry writer was advised patient was accepted at [facility]. However in the ED on that date patient said that he was not going to the facility and did not take the information regarding the program. On this date 07/29/22 SW called Cedric, Addiction Therapist. She said that in the past patient was brought to the hospital from [facility]. Whne patient went to [facility] he said that he wanted detox and a McChicken. Patient refused to leave and go the ED until he got his McChicken sandwich. Cedric advised that patient left [facility] AMA (he may never even have gone there but was accepted) and then he wrestled 3 hose handler and was in senior care till yesterday. Cedric said that her information states [facility] does detox and treatment. She also gave number for [facility] [phone] and [facility] [phone]. JENNIFER called [facility] and spoke to Fani and she said that they have residential program but the patient is able to go outside and smoke and only can leave with staff members. JENNIFER called [facility]. Spoke to Ty Ta and he advised program is a 90 day program for substance abuse after detox. They do not do detox. JENNIFER called [facility]. They do not do detox. JENNIFER called [facility]. They do not take medicaid. JENNIFER called Julia at [facility]. [facility] has no beds. JENNIFER spoke to Savanah and the patient was not allowed to return back to [facility]. Danelle POOLE
--- NOTE | 2022-07-29 12:15 | ED.RN ---
PATIENT ANXIOUS AND AGITATED AFTER SPEAKING WITH SEWER PIPE CLEANER, DENIES MEAL TRAY
--- NOTE | 2022-07-29 12:29 | CM.ED ---
Addendum entered by Danelle Preston 07/29/22 13:35: SW spoke to Cedric, Addiction Therapist and updated her regarding patient. He is not allowed back into the [facility] program. Original Note: SW received call from [facility]. They declined patient solely based on his address. Patient has [place] Medicaid. She requested that this process description writer ask patient about his address. SW met with patient. Patient initially did not state his address stating I don't know or I forget. Finally, after confronting patient he stated [address] but stated he did not know the town. SW confronted patient about him not knowing the address and finally patient said [place]. SW asked who sent patient to [place] and patient said I forget. Patient was asked how long he has been in [place] and he says I don't know. SW confronted patient about why last month, when he got accepted to residential treatment program, he said he was leaving and going back to [place]. SW asked why he said [place] and patient said he just said it. SW asked why patient's medicaid is out of [facility] and patient said that he was in a skilled nursing in [place]. Patient said I am suicidal and I will do it when questioned about why are things different this month as opposed to last month. SW said that people can be chronically suicidal but that is probably me now. Patient said that he did get on a bus and went to [place] and had a warrant so was transported to [place]. Patient was asked about psych hospitalization and he said yes. Patient said that he was at [facility] and it didn't go well. Patient said that they gave him medicine but the staff ran their mouth and are quick to not give a shit... you need to give a fuck or I will get in your ass real fucking quick.. do your fucking job. SW continued to ask questions regarding patient and he would say I don't know and I told you everything I know when pressured to answer a question. SW again asked why patient is suicidal today and what has changed since last month and patient said homeless, drinking and when this process description writer advised that had been the situation last month but patient had refused help. SW advised that we need this information to help him and patient again stated I don't know and during the interview patient also stated I dont know or I told you everything I know with a clenched fist. SW advised that patient is not going to be inappropriate to staff at [facility]. Patient is displaying behavior consistent with malingering behavior. He is demanding and entitled and appears to say things that he perceives will get him what he desires, which is housing. JENNIFER updated Savanah from [facility]. Savanah is going to call listed emergency contact and this process description writer will call senior care. JENNIFER called [facility] and spoke to corrections Sgt Jami who stated that patient was discharged from senior care yesterday. On the medical history list patient listed no issues except high blood pressure. Savanah from [facility] called. Savanah stated that she called Mr. Collins, emergency contact for patient. Savanah stated that Mr. 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 Mr. Collins said patient knows how to use the system and has been an alcoholic since age 19. Patient is transient and he uses pills and alcohol. Mr. Collins said that patient will say that he is suicidal to get housing in psych facility and then they will hook him up with a packaging tech facility and he learns he has to do something and he doesn't and gets evicted. Per Mr. Collins patient has been doing this for years. He said that patient has outstanding warrants all over the country for disorder and public intoxification. Mr Collins said that patient knows what to say and he is malingering . He stays at psych facilities for no more than 1 week. Mr. Collins said that patient won't answer questions or say I don't know because he knows what is behind the answers. Per Mr. Collins patient was sent across the country as [facility] sent patient to [place] and they sent patient back to [place]. Patient has been in [place] for 8-10 months. Mr. Collins has not seen patient since 2018 but he calls him all the time. Mr. Collins stated that patient has NEVER attempted suicide. This is behavior consistent with malingering behavior. JENNIFER received call from Savanah. [address] is [facility]. Savanah called [facility] and they do addiction and crisis stabilization. They accept [place] medicaid. She said that the address needs to be taken off his face sheet as it is a business address not a residence. JENNIFER updated registration and a new face sheet was created. Face sheet faxed to Savanah at Crisis. Danelle POOLE
[2022-07-29] MEDS: LORazepam 2 MG/ML Syringe 1 MG IV (17:42)
[2022-07-29] MEDS: Ondansetron 4 MG/2 ML Vial IV (17:42)
--- NOTE | 2022-07-29 19:17 | CM.ED ---
JENNIFER Friedah called from Crisis. [facility] has no beds. Savanah is calling [facility] to reconsider. Savanah from Crisis called. She advised that if the patient does not get accepted she will have someone reassess in the morning. JENNIFER updated Karyn, commercial horticulture instructor.
[2022-07-30] VITALS (18 sets, daily range): BP systolic 134–180; BP diastolic 81–119; PULSE 84–104; RESP 15–20; TEMP 36.7; O2SAT 95–99
[2022-07-30] MEDS: Acetaminophen 325 MG Tablet 650 MG PO (05:30)
[2022-07-30] MEDS: LORazepam 1 MG Tablet PO ×2 (05:30→08:56)
--- NOTE | 2022-07-30 10:26 | CM.ED ---
Addendum entered by Danelle Preston 07/30/22 10:39: JENNIFER updated patient. Advised that we have been looking for placement but unsuccessfully. JENNIFER advised that we have been working on it but can't make a bed. Patient said that's not good. Danelle POOLE Original Note: JENNIFER Note JENNIFER spoke to Margo at Crisis. Margo said that Savanah advised that she would probably need to reassess patient today. Margo will call [facility] to see if they have a bed. This medical writer will call [facility] to check on status of the referral. JENNIFER called [facility]. They are full and felt that patient may need a medical bed. Argelia from [facility] said that this medical writer can call back tomorrow. Danelle POOLE
--- NOTE | 2022-07-30 13:18 | ED.RN ---
Pt wanted advocate. Pantera REES called and will be over to see pt.
--- NOTE | 2022-07-30 13:26 | ED.RN ---
THIS RN AND WHITNEY REES SPOKE WITH PATIENT DUE TO HIM STANDING OUTSIDE THE ROOM. THIS RN INFORMED HIM THAT HE NEEDED TO STAY IN THE ROOM FOR PATIENT PRIVACY. HE STATES THAT HE WANTS THE PATIENT ADVOCATE AND OUT OF HERE. WHEN ASKED BY THIS RN WHERE HE WOULD GO HE STATES TO [facility] TO [facility] FOR MONEY THEN THE [employer]. THIS RN INFORMS HIM THAT THE CHARGE NURSE ALREADY CALLED THE PATIENT ADVOCATE FOR HIM AND HE WILL BE DOWN SHORTLY. PT STATES HE IS NAUSEATED AND GETTING WORSE. PT ALSO STATES THE SUPERVISOR DITCHING IS FUCKING WITH HIM. THEY PLAY ON THE COMPUTER ALL DAY AND CHIEF SCIENTIFIC OFFICER THE PHONE WHEN THEY FEEL LIKE IT. SHE COULD'VE FOUND A PLACE BY NOW IF SHE WANTED TO. THIS RN INFORMS HIM THAT IS NOT THE CASE AND THAT MAKEDA FROM CRISIS WILL BE IN THE AFTERNOON TO SEE HIM. THIS RN INFORMS ABOUT THE PATIENTS NEEDS AND NEW ORDERS OBTAINED. WHITNEY REES ALSO PERFORMED A BEDSIDE CIWA. PATIENT ADVOCATE ARRIVES TO ED AT 1334 TO SPEAK WITH PATIENT.
[2022-07-30] MEDS: Ondansetron ODT 4 MG Tablet PO (13:39)
--- NOTE | 2022-07-30 13:57 | NURSING ---
I was requested by the patient to discuss concerns with care as the patient advocate. When I arrived the patient was sitting at the end of the bed with his arms crossed. He was obviously agitated by his demeanor. I asked how I could help and the patient angrily rattled off several complaints including; the staff not giving him the right amount of Ativan. He stated they need to be giving me 2mg and they are giving me 1mg. I reinforced they gave him 1mg two times once at 0530, he slept then again at 0830 when he awakened. I was told this by his primary nurse. He was upset at the meal brought to him stating he is a 330# man and ain't eating no kid-ass meal. He wanted a hot meal for a man. He also said he was leaving this place. He was over it. I explained that he was pink slipped. He did not seem phased by this news. I explained we were responsible to keep him safe during this time and he would not be permitted to leave the facility. I explained I would be happy to bring him a couple sandwiches, even three if he wanted them, but he could not receive a hot meal due to the policy regarding safety and pink slips. He scuffed about it but verbalized understanding. After he shared his withdrawal symptoms I explained I would ask the physician if he could have some medicine for his anxiety. I informed him they were bringing something for nausea. I informed his nurse of the med request as the physician was not available at the time. The patient is aware as well. I brought him two sandwiches. He stated one would be fine. I brought him cookies and two cups of soda. They patient is aware crisis will be in to reevaluate him and I could not verify the time. He understood. The patient was left sitting at the foot of the bed. He appeared to be in a safe position for himself. He had calmed and was speaking in a normal tone of voice. Is aware I can come back for assistance as needed.
--- NOTE | 2022-07-30 14:00 | ED.RN ---
PT REFUSES 1MG ATIVAN. GET OUT OF HERE WITH THAT, IT ISNT GOING TO WORK. IT IS INEFFECTIVE AND THEY KNOW THIS, I BEEN TELLING THEM 20MILLION DAMN TIMES. THIS IS A BAD IDEA FOR THEY ASS LEGALLY, THEY GONNA FIND OUT
--- NOTE | 2022-07-30 16:02 | NURSING ---
AFTER PT MET WITH ADVOCATE,THE ATIVAN THAT HE PREVIOUSLY REFUSED WAS RE-OFFERED TO HELP RELIEVE HIS SYMPTOMS. PT REFUSED STATING 1 MG IS FUCKING GODDAMN BULLSHIT AND ISN'T GOING TO DO ANYTHING. NURSE CLARIFIED WITH PT THAT HE DOES NOT WANT THE MEDICATION AND HE CONFIRMED. DOCTOR WAS MADE AWARE.
[2022-07-30] MEDS: hydrOXYzine 50 MG/ML Vial IM (16:24)
--- NOTE | 2022-07-31 09:41 | CM.ED ---
Late Entry Savanah from Crisis was here to assess patient on 07/30/22. Reassessment completed and patient safety planned home. Updated assessment included in the chart. No further services needed at this time. Danelle POOLE
== END 2022-07-30 17:22 | disposition home or self-care (01) ==
PROVIDERS: Emergency Provider Emergency Medicine; Visit Provider Emergency Medicine
DX: F32.A Depression, unspecified (principal); R45.851 Suicidal ideations; F41.9 Anxiety disorder, unspecified; I10 Essential (primary) hypertension; E03.9 Hypothyroidism, unspecified; Z79.899 Other long term (current) drug therapy; Z59.00 Homelessness unspecified; F12.90 Cannabis use, unspecified, uncomplicated; Z87.891 Personal history of nicotine dependence; F10.10 Alcohol abuse, uncomplicated
CPT/HCPCS: 80048; 80076; 80307; 80329; 81001; 82077; 83735; 84443; 85025; 87811; 93005; 96372; 96374; 96375; 96376; 99283; A4216; G0480; J2405

== ENCOUNTER 2022-08-01 15:14 | Inpatient (IN) | payer MEDICAID, SELFPAY ==
[2022-08-01 15:17] VITALS: BP 126/96; PULSE 108; RESP 16; TEMP 36.6; O2SAT 98; BMI 40.1
--- NOTE | 2022-08-01 16:18 | EX.ED.SAOD ---
HPI History of Present Illness Chief Complaint: Mental Health Informant: patient Narrative Narrative: Patient brought in by police for evaluation. He is requesting alcohol assistance. Daily alcohol use of beer at least 15 tall boys a day. Occasional marijuana last use 3 days ago. Denies any other recreational drug use. Long history of alcohol use. Apparently not directly from the area he states he travels with car intervals. He states the last assistance was 2 months ago at [place]. He states he was admitted in [place] 6 months ago for withdrawal with alcoholic seizures. He was in ICU for 9 months. He denies any current suicidal or homicidal ideations. No auditory visual loose Nations. Of note seen 4 days ago in the ED for reported suicidal ideations with alcohol he was cleared. History of major depression, bipolar, PTSD not taking any medications. History of psoriasis. States his last drink was 2 PM. He states he has been in the [facility] over the last week. He states he was in correction or out in the streets. He slept on the streets last night. [facility] Medical History (Updated 08/02/22 @ 00:[address] Garo Cam DO) Alcohol abuse Anxiety and depression Cannabis use disorder Hypertension Hypothyroidism Morbid obesity Home Medications aripiprazole 5 mg tablet (Abilify) 5 mg PO DAILY mood 06/23/22 [History Last Taken 06/21/22] escitalopram oxalate 20 mg tablet (Lexapro) 20 mg PO DAILY depression 06/23/22 [History Last Taken 06/21/22] levothyroxine 150 mcg tablet 150 mcg PO DAILY thyroid 06/23/22 [History Last Taken 06/21/22] lisinopril 40 mg tablet 40 mg PO DAILY HTN 06/23/22 [History Last Taken 06/21/22] pantoprazole 40 mg tablet,delayed release (Protonix) 40 mg PO DAILY GERD 06/23/22 [History Last Taken 06/21/22] Allergy/AdvReac Type Severity Reaction Status Date / Time haloperidol [From Haldol] AdvReac Other Verified 07/28/22 19:50 Family History Father Diabetes Mother CAD (coronary artery disease) Surgical History History of appendectomy Social History (Updated 08/01/22 @ 16:[address] Amena Sosa MD) housing: homeless Smoking Status: Current every day smoker tobacco type: cigarettes alcohol intake: current Previous attempts at quittin substance use type: marijuana ROS ROS ED Constitutional Constitutional ED: Denies chills, fever(s) or sweats ENT ENT ED: Denies sore throat Cardiovascular Cardiovascular: Denies chest pain, leg edema, palpitations or racing heartbeat Respiratory/Chest Respiratory/Chest: Denies cough or dyspnea Gastrointestinal Gastrointestinal: Denies abdominal pain, diarrhea, nausea or vomiting Genitourinary Genitourinary ED: Denies dysuria, hematuria or urinary frequency Musculoskeletal Musculoskeletal: Denies back pain, extremity pain or neck pain Integumentary Denies rash or wounds Neurologic Neurologic: Denies headache(s), paresthesias or weakness EXAM Physical Exam Const Vital Signs: 08/01/22 15:17 Temperature 97.8 F Temperature Source Temporal Pulse Rate 108 H Respiratory Rate 16 Blood Pressure 126/96 H Blood Pressure Mean 106 Pulse Ox 98 Oxygen Delivery Method Room Air Positive well nourished and well developed Constitutional Narrative: Patient with intoxication however answering questions, nontoxic. General Appearance ED: well developed and NAD HEENT Reports moist mucous membranes normocephalic and atraumatic Eyes PERRL, EOMs intact bilaterally and conjunctivae normal General Eye ED: Yes normal appearance of both eyes Neck no lymphadenopathy and supple General: Negative for tenderness Chest Wall Chest: Negative for tenderness Resp normal respiratory effort and normal air movement Effort and Inspection: symmetric chest movement; Negative for respiratory distress Cardio regular rate, regular rhythm and no murmurs Rate: tachycardic Peripheral Pulses: pulses 2+ throughout GI normal to inspection, nondistended, normoactive bowel sounds and non-tender Palpation: Negative for guarding or rebound tenderness present Back/Spine no CVA tenderness and no thoracic nor lumbar tenderness Extremity normal to inspection General Extremety ED: Negative for edema or tenderness General Extremity: Negative for edema Neuro oriented x3 and no sensory deficits noted Sensorium / Orientation: awake and alert Skin no rashes or lesions noted and no wounds MDM MDM MDM Narrative Medical decision making narrative: Patient intoxicated alert and orient x3 answering questions appropriately. No suicidal homicidal ideations. Requesting alcohol assistance. Labs were ordered, will plan to discuss with hospitalist service for admission. I discussed with Dr. Sosa for admission. Discharge Plan Dx/Rx/DC Orders Clinical Impression: Alcohol abuse, Alcohol dependence, History of depression, Alcohol intoxication Disposition Disposition: Acute Care Hospital [facility] Discharge Date/Time: 08/01/22 17:18
--- NOTE | 2022-08-01 16:23 | HP.PCM.HOS_ITS ---
HPI - General General Date of Admission: 08/01/22 Date of Service: 08/01/22 Chief Complaint: Request EtOH detoxification, last intake 2 pm, mild withdrawal onset. HPI Narrative The patient is a 41 y/o M w/ PMHx: Chronic microcytic anemia, Morbid Obesity, HTN, HLD, Anxiety and Depression, Hypothyroidism, Cannabis usage who presents to the [facility] ED on 08/01/22 with history of onset mild acute EtOH withdrawal symptoms, onset starting prior to ED presentation following last EtOH intake 1-2 pm with onset of mild tremors, mild agitation, tactile disturbances. Patient notes he remains homeless and [facility] police contacted services to assist him outpatient for EtOH abuse and ambulance transitioned him to the ED for the acute phase of treatment prior to outpatient transition. Patient interested in attaining sober status and reports that he will not leave AMA during this admission. Patient does have a history of alcohol withdrawal related seizure activity. Work-up in the ED included T98.1, heart rate 106, BP 157/106, respiratory rate 16, 95% room air, CBC with WC 5.8, hemoglobin 11.7, MCV 76.1, platelet 245 without marked shift, pending CMP upon requested evaluation, pending urine drug screen as well as ethyl alcohol level upon requested evaluation. [facility] Medical History (Updated 08/01/22 @ 17:[address] Amena Sosa MD) Alcohol abuse Anxiety and depression Cannabis use disorder Hypertension Hypothyroidism Morbid obesity Home Medications aripiprazole 5 mg tablet (Abilify) 5 mg PO DAILY mood 06/23/22 [History Last Taken 06/21/22] escitalopram oxalate 20 mg tablet (Lexapro) 20 mg PO DAILY depression 06/23/22 [History Last Taken 06/21/22] levothyroxine 150 mcg tablet 150 mcg PO DAILY thyroid 06/23/22 [History Last Ta jordana 06/21/22] lisinopril 40 mg tablet 40 mg PO DAILY HTN 06/23/22 [History Last Taken 06/21/22] pantoprazole 40 mg tablet,delayed release (Protonix) 40 mg PO DAILY GERD 06/23/22 [History Last Taken 06/21/22] Allergy/AdvReac Type Severity Reaction Status Date / Time haloperidol [From Haldol] AdvReac Other Verified 07/28/22 19:50 Family History Father Diabetes Mother CAD (coronary artery disease) Surgical History History of appendectomy Social History (Updated 08/01/22 @ 16:[address] Amena Sosa MD) housing: homeless Smoking Status: Current every day smoker tobacco type: cigarettes alcohol intake: current Previous attempts at quittin substance use type: marijuana ROS ROS Narrative Admission Review of Systems: CONSTITUTIONAL: No weight loss, fever, chills, + weakness or fatigue. HEENT: Eyes: No visual loss, blurred vision, double vision or yellow sclerae. Ears, Nose, Throat: No hearing loss, sneezing, congestion, runny nose or sore throat. SKIN: No rash or itching, lesions, wounds. CARDIOVASCULAR: No chest pain, chest pressure or chest discomfort, palpitations, edema, orthopnea, syncopal events. RESPIRATORY: No shortness of breath, cough or sputum, wheezing, hemoptysis. GASTROINTESTINAL: No anorexia, nausea, vomiting or diarrhea, abdominal pain, melena, BRBPR. GENITOURINARY: No dysuria, frequency, urgency or retention. NEUROLOGICAL: + Tremors, mild tactile disturbances, No headache, dizziness, syncope, paralysis, ataxia, focal weakness, change in bowel or bladder control, seizure. MUSCULOSKELETAL: + muscle, back pain, joint pain or stiffness. HEMATOLOGIC: + anemia, bleeding or bruising. LYMPHATICS: No enlarged nodes. No history of splenectomy. PSYCHIATRIC: + history of depression or anxiety. ENDOCRINOLOGIC: No reports of sweating, cold or heat intolerance. No polyuria or polydipsia. ALLERGIES: No history of asthma, hives, eczema or rhinitis. Vital Signs Vital Signs Vital Signs: 08/01/22 15:17 Temperature 97.8 F Temperature Source Temporal Pulse Rate 108 H Respiratory Rate 16 Blood Pressure 126/96 H Blood Pressure Mean 106 Pulse Ox 98 Oxygen Delivery Method Room Air Weight Weight: 330 lb Body Mass Index (BMI) 40.1 Results Lab / Micro Data Result Diagrams: 08/01/22 16:35 08/01/22 16:35 Assessment & Plan Assessment/Plan (1) Alcohol withdrawal: PLAN: Plan The patient is a 41 y/o M w/ PMHx: Chronic microcytic anemia, Morbid Obesity, HTN, HLD, Anxiety and Depression, Hypothyroidism, Cannabis usage who presents to the [facility] ED on 08/01/22 with history of onset mild acute EtOH withdrawal symptoms, onset starting prior to ED presentation following last EtOH intake 1-2 pm with onset of mild tremors, mild agitation, tactile disturbances. #1. Acute EtOH Withdrawal: Will admit to [facility], routine labs obtained in the ED upon presentation. Given interest in sobriety, will initiate and continue on protocol with taper course of Phenobarbital, scheduled gabapentin for seizure prophylaxis, as needed Catapres, Bentyl, Vistaril, IV fluids, IV antiemetics, Tylenol as needed for pain. Will consult Case management for assistance for transition to next level of rehabilitation care. Mag, phos pending. #2. Hypertension: Continue home regimen including lisinopril, PRN hydralazine. #3. Anxiety and depression: We will continue patient home escitalopram and Masha lify regimen. #4. Possible ARPITA: Patient denies ever being tested, will monitor with trending pulse oximeter to be cautious. #5. Hypothyroidism: We will continue patient home levothyroxine regimen. #6. Morbid Obesity: Weight loss and lifestyle changes encouraged. #7. GERD: We will continue patient on PPI. #8. Chronic cannabis usage: Patient uses heavy cannabis, reports he uses it whenever he can obtain it, discussed benefits of complete cessation with him #9. Iron deficiency anemia, chronic: Admission hemoglobin 11.7, MCV 76.1, will obtain iron panel, ferritin. #10. DVT prophylaxis: Low risk, encourage ambulation. Charges/Coding Visit Charges Inpatient E&M: 45131 Init Hosp L3
--- NOTE | 2022-08-01 16:25 | NURSING ---
DR SUE MOY
--- NOTE | 2022-08-01 16:31 | NURSING ---
MED SURG WHITE ALCOHOL DEPENDENCE
[2022-08-01 16:44] LABS: Absolute Lymphocyte Count 1.35 X10^3/uL (0.83-4.51); Absolute Neutrophil Count 3.8 X10^3/uL (2.0-7.7); Basophil# 0.06 X10^3/uL; Eosinophil# 0.26 X10^3/uL; Eosinophils% 4.5 % (0-5); Hematocrit 37.9 % (40-54); Hemoglobin 11.7 g/dL (13.0-16.5); Lymphocyte # 1.35 X10^3/ul (0.83-4.51); Lymphocyte % 23.3 % (19-41); Mean Corp Hgb Conc 30.9 g/dL (32-36); Mean Corpuscular Hgb 23.5 pg (27.0-32.0); Mean Corpuscular Volume 76.1 fL (80-94); Mean Platelet Vol. 8.9 fl (6.2-12.0); Monocyte% 5.2 % (0-10); NRBC Flagged by Analyzer 0 % (0-5); Neutrophil % 65.7 % (47-70); Platelet Count 245 K/mm3 (150-450); RBC Distribution Width CV 18.3 % (11.6-14.6); Red Blood Count 4.98 M/mm3 (4.6-6.2); White Blood Count 5.8 K/mm3 (4.4-11.0)
[2022-08-01 16:50] VITALS: BP 157/106; PULSE 106; RESP 16; TEMP 36.7; O2SAT 95
[2022-08-01 17:06] LABS: ALB/GLOB Ratio 0.9 RATIO (0.9-2.4); AST(SGOT) 33 U/L (15-37); Alanine Aminotransfer ALT/SGPT 31 U/L (16-61); Albumin, Serum 3.6 g/dL (3.2-5.0); Alkaline Phosphatase 104 U/L (45-117); Anion Gap 9 (5-15); BUN 6 mg/dL (7-18); BUN/Creat Ratio 6.6 RATIO (10-20); Chloride 107 mmol/L (98-107); Creatinine, Serum 0.91 mg/dL (0.70-1.30); EST Glomerular Filtration Rate 97 mL/min (>60); Est Glom Filt Rate - Afr Amer 117 mL/min (>60); Estimated Creatinine Clearance 131.15 ml/min; Globulin 4.1 g/dL (2.2-4.2); Glucose 99 mg/dL (74-106); Potassium 4.2 mmol/L (3.5-5.1); Protein, Total 7.7 g/dL (6.4-8.2); Sodium Level 141 mmol/L (136-145)
[2022-08-01 17:14] LABS: Amphetamine Urine VISTA NEGATIVE (<1000 ng/mL); Barbiturate Urine VISTA POSITIVE (< 200 ng/mL); Benzodiazepine Urine VISTA POSITIVE (< 200 ng/mL); Cocaine Urine VISTA NEGATIVE (< 300 ng/mL); Ecstacy Urine VISTA NEGATIVE (< 500 ng/mL); Methadone Urine VISTA NEGATIVE (< 300 ng/mL); PCP Urine VISTA NEGATIVE (< 25 ng/mL); THC Urine VISTA POSITIVE (< 50 ng/mL); Vista UDS pH Range 6
[2022-08-01 17:23] VITALS: BMI 43.5
[2022-08-01 17:36] VITALS: BP 143/90; PULSE 101; RESP 18; TEMP 36.6; O2SAT 97
[2022-08-01] MEDS: Lactated Ringers 1,000 ML 125 ML IV (17:56)
[2022-08-01] MEDS: Phenobarbital 32.4 MG Tablet 64.8 MG PO ×2 (17:56→22:26)
[2022-08-01 18:10] LABS: Ferritin 5 ng/mL (26-388); Iron 30 ug/dL (65-175); Iron Binding Capacity,Total 485 ug/dL (250-450); PERCENT IRON SATURATION 6.2 % (15.0-55.0)
[2022-08-01 22:00] VITALS: BP 128/73; PULSE 102; RESP 18; TEMP 37.1; O2SAT 93
[2022-08-02] MEDS: Phenobarbital 32.4 MG Tablet 64.8 MG PO ×6 (02:03→21:12)
[2022-08-02] MEDS: Ondansetron 8 MG Tablet PO (05:53)
[2022-08-02] MEDS: Lisinopril 40 MG Tablet PO (05:58)
[2022-08-02 06:00] VITALS: BP 174/109; PULSE 96; RESP 16; TEMP 36.7; O2SAT 100
[2022-08-02] MEDS: Levothyroxine 150 MCG Tablet PO (06:20)
[2022-08-02 07:51] VITALS: BP 160/98; PULSE 93; RESP 18; TEMP 36.8; O2SAT 100
[2022-08-02] MEDS: Pantoprazole Sodium 40 MG Tablet PO (07:55)
[2022-08-02] MEDS: Folic Acid 1 MG Tablet PO (07:55)
[2022-08-02] MEDS: Escitalopram Oxalate 20 MG Tablet PO (07:55)
[2022-08-02] MEDS: ARIPiprazole 5 MG Tablet PO (07:55)
[2022-08-02] MEDS: Thiamine Hydrochloride 100 MG Tablet PO (07:55)
[2022-08-02 09:48] VITALS: BP 143/83; PULSE 86; RESP 18; TEMP 36.7; O2SAT 94
--- NOTE | 2022-08-02 10:30 | CASEMGMT ---
Social Work SW in to meet with pt. Introduced self and role at the hospital. SW provided resources packet to pt for substance abuse including AA meeting list, treatment centers and OP therapy. SW also provided resources for pt homeless status for shelters and places he can obtain hot meals if needed. Pt expressed gratitude. LESIA Borrego
[2022-08-02] MEDS: Dicyclomine 10 MG Capsule 20 MG PO (10:32)
--- NOTE | 2022-08-02 10:34 | CASEMGMT ---
Social Work SW met with pt to validate advanced directives. Pt appeared confused. Stated he did not have AD then stated if he does it might be his easement worker from [place]. SW informed him these documents are not on file. Pt reported he does not have copies and did not want this worker to call Title Examiner in [place] to ask if Title Examiner had copies. LESIA Borrego
--- NOTE | 2022-08-02 10:47 | PN.HOSP_ITS ---
Subjective Subjective Follow-up on acute alcohol withdrawal: Patient was seen and examined. He stated he feels improved. No acute events overnight Objective Data Objective Data Vital Signs: Vital Signs Temp Pulse Resp BP Pulse Ox O2 Del Method 98.1 F 86 18 143/83 H 94 Room Air 08/02/22 09:48 08/02/22 09:48 08/02/22 09:48 08/02/22 09:48 08/02/22 09:48 08/02/22 09:48 Oxygen Delivery Method Room Air Weight: 158.168 kg Body Mass Index (BMI) 43.5 Intake & Output: Intake and Output for Last 24 Hours 07/31/22 08/01/22 08/02/22 23:59 23:59 23:59 Intake Total 300 / 300 1000 / 1000 Balance 300 / 300 1000 / 1000 Lab / Micro Data Result Diagrams: 08/01/22 16:35 08/01/22 16:35 Labs: Laboratory Results - last 24 hr 08/01/22 16:35: WBC 5.8, RBC 4.98, Hgb 11.7 L, Hct 37.9 L, MCV 76.1 L, MCH 23.5 L, MCHC 30.9 L, RDW Std Deviation 48.0 H, RDW Coeff of Nasima 18.3 H, Plt Count 245, MPV 8.9, Immature Gran % (Auto) 0.300, Neut % (Auto) 65.7, Lymph % (Auto) 23.3, Harvey % (Auto) 5.2, Eos % (Auto) 4.5, Baso % (Auto) 1.0, Absolute Neuts (auto) 3.8, Absolute Lymphs (auto) 1.35, Nucleated RBC % 0 08/01/22 16:35: Sodium 141, Potassium 4.2, Chloride 107, Carbon Dioxide 25.0, Anion Gap 9, BUN 6 L, Creatinine 0.91, Estim Creat Clear Calc 131.15, Est GFR (MDRD) Af Amer 117, Est GFR (MDRD) Non-Af 97, BUN/Creatinine Ratio 6.6 L, Glucose 99, Calcium 9.0, Magnesium 2.0, Total Bilirubin 0.30, AST 33, ALT 31, Alkaline Phosphatase 104, Total Protein 7.7, Albumin 3.6, Globulin 4.1, Albumin/Globulin Ratio 0.9 08/01/22 16:35: Ethyl Alcohol 249.0 08/01/22 16:35: Phosphorus 3.0 08/01/22 16:35: Iron 30 L, TIBC 485 H, Iron Saturation 6.2 L, Ferritin 5 L 08/01/22 : Urine Opiates Screen NEGATIVE, Urine Methadone Screen NEGATIVE, Ur Barbiturates Screen POSITIVE H, Ur Phencyclidine Scrn NEGATIVE, Ur Amphetamines Screen NEGATIVE, MDMA (Ecstasy) Screen NEGATIVE, U Benzodiazepines Scrn POSITIVE H, Urine Cocaine Screen NEGATIVE, U Cannabinoids Screen POSITIVE H, Ur Drug Scr een Comment Physical Exam Narrative Physical exam: General: Alert, Oriented x3, Cooperative, No apparent distress, morbidly obese, appears unkempt HEENT: Atraumatic Oral: Moist Mucosa Neck: Supple Lungs: Clear to auscultation Cardiovascular: HS I+II, regular, no murmurs Abdomen: Bowel Sounds Present, Soft, Non Tender Extremities: No edema Skin: No rashes, No breakdown Neurological: Grossly intact Psych/Mental Status: Appropriate Assessment & Plan Assessment/Plan (1) Alcohol withdrawal: PLAN: Plan 1. Acute alcohol withdrawal, continue on alcohol withdrawal protocol 2. Hypertension, controlled, continue on Lisinopril, Hydralazine prn 3. Anxiety/depression continue on escitalopram and Abilify 4. Hypothyroidism, continue synthroid 6. Morbid Obesity, BMI 43.6, lifestyle modification recommended 7. GERD, continue on PPI 8. Iron deficiency anemia, chronic, will start on oral iron with stool softene rs 9. DVT prophylaxis - low risk; early ambulation recommended Charges/Coding Visit Charges Inpatient E&M: 48027 Subs Hosp L2
--- NOTE | 2022-08-02 11:25 | ADDICTION ---
Addendum entered by Mary Saxena 08/04/22 10:35: Pt was approved for residential [facility] at [facility] [place]. He will be transported today [facility]. Original Note: This principal technical writer met with PT to conduct ASAM, MSE, AUDIT, DUDIT assessments and to plan for d/c. PT A+Ox4 and participated actively. All assessments completed and placed in PT's chart. PT plans to f/u with follow-up with [facility]. PT reports they will pick him up once detox is complete.
[2022-08-02] MEDS: Ferrous Sulfate 325 MG Tablet PO ×2 (12:09→17:32)
[2022-08-02] MEDS: Loperamide 2 MG Capsule PO (12:11)
[2022-08-02 13:48] VITALS: BP 171/98; PULSE 96; RESP 18; TEMP 36.7; O2SAT 96
[2022-08-02] MEDS: Gabapentin 300 MG Capsule PO (17:31)
[2022-08-02 18:00] VITALS: BP 134/96; PULSE 96; RESP 18; TEMP 36.7; O2SAT 96
[2022-08-02 21:07] VITALS: BP 154/105; PULSE 84; RESP 16; TEMP 36.9; O2SAT 96
[2022-08-03 01:48] VITALS: BP 157/95; PULSE 82; RESP 18; TEMP 37.3; O2SAT 97
[2022-08-03] MEDS: Phenobarbital 32.4 MG Tablet 64.8 MG PO ×6 (01:54→21:36)
[2022-08-03] MEDS: hydrOXYzine PAM 25 MG Capsule 50 MG PO ×3 (01:54→13:48)
[2022-08-03] MEDS: Dicyclomine 10 MG Capsule 20 MG PO ×2 (01:55→15:48)
[2022-08-03 05:00] VITALS: BP 141/75; PULSE 81; RESP 15; TEMP 36.9; O2SAT 99
[2022-08-03] MEDS: Levothyroxine 150 MCG Tablet PO (05:26)
[2022-08-03] MEDS: Ondansetron 8 MG Tablet PO (05:32)
[2022-08-03] MEDS: Acetaminophen 325 MG Tablet 650 MG PO ×2 (05:32→18:25)
[2022-08-03 09:45] VITALS: BP 142/83; PULSE 88; RESP 18; TEMP 36.7; O2SAT 97
[2022-08-03] MEDS: Folic Acid 1 MG Tablet PO (09:50)
[2022-08-03] MEDS: Escitalopram Oxalate 20 MG Tablet PO (09:50)
[2022-08-03] MEDS: ARIPiprazole 5 MG Tablet PO (09:50)
[2022-08-03] MEDS: Thiamine Hydrochloride 100 MG Tablet PO (09:50)
[2022-08-03] MEDS: Pantoprazole Sodium 40 MG Tablet PO (09:51)
[2022-08-03] MEDS: Lisinopril 40 MG Tablet PO (09:51)
--- NOTE | 2022-08-03 10:33 | PCM.PN.HOSP ---
Subjective Subjective Follow-up on acute alcohol withdrawal: Patient was seen and examined.? No acute events overnight Objective Data Objective Data Vital Signs: Vital Signs Temp Pulse Resp BP Pulse Ox O2 Del Method 98.1 F 88 18 142/83 H 97 Room Air 08/03/22 09:45 08/03/22 09:45 08/03/22 09:45 08/03/22 09:45 08/03/22 09:45 08/03/22 09:45 Oxygen Delivery Method Room Air Weight: 158.168 kg Body Mass Index (BMI) 43.5 Intake & Output: Intake and Output for Last 24 Hours 08/01/22 08/02/22 08/03/22 23:59 23:59 23:59 Intake Total 300 / 300 1000 / 1500 900 / 900 Balance 300 / 300 1000 / 1500 900 / 900 Lab / Micro Data Result Diagrams: 08/01/22 16:35 08/01/22 16:35 Physical Exam Narrative Physical exam: General: Alert, Oriented x3, Cooperative, No apparent distress, morbidly obese, appears unkempt HEENT: Atraumatic Oral: Moist Mucosa Neck: Supple Lungs: Clear to auscultation Cardiovascular: HS I+II, regular, no murmurs Abdomen: Bowel Sounds Present, Soft, Non Tender Extremities: No edema Skin: No rashes, No breakdown Neurological: Grossly intact Psych/Mental Status: Appropriate Assessment & Plan Assessment/Plan (1) Alcohol withdrawal: PLAN: Plan 1. Acute alcohol withdrawal, continue on alcohol withdrawal protocol 2. Hypertension, controlled, continue on Lisinopril, Hydralazine prn 3. Anxiety/depression continue on escitalopram and Abilify 4. Hypothyroidism, continue synthroid 6. Morbid Obesity, BMI 43.6, lifestyle modification recommended 7. GERD, continue on PPI 8. Iron deficiency anemia, chronic, will start on oral iron with stool softeners 9. DVT prophylaxis - low risk; early ambulation recommended Charges/Coding Visit Charges Inpatient E&M: 58304 Subs Hosp L2
[2022-08-03 10:57] VITALS: BP 125/62; PULSE 81; RESP 18; TEMP 36.5; O2SAT 98
[2022-08-03 15:43] VITALS: BP 178/99; PULSE 96; RESP 20; TEMP 37; O2SAT 96
--- NOTE | 2022-08-03 18:42 | NURSING ---
offered prn hydralazine, pt declines.
[2022-08-03 21:40] VITALS: BP 160/92; PULSE 91; RESP 16; TEMP 36.8; O2SAT 97
[2022-08-04] MEDS: Phenobarbital 32.4 MG Tablet 64.8 MG PO ×3 (01:47→14:13)
[2022-08-04] MEDS: Ibuprofen 600 MG Tablet PO (01:47)
[2022-08-04 02:00] VITALS: BP 154/100; PULSE 84; RESP 15; TEMP 37.1; O2SAT 98
[2022-08-04] MEDS: Levothyroxine 150 MCG Tablet PO (04:57)
[2022-08-04] MEDS: Dicyclomine 10 MG Capsule 20 MG PO (04:57)
[2022-08-04] MEDS: hydrOXYzine PAM 25 MG Capsule 50 MG PO (06:36)
[2022-08-04 08:00] VITALS: BP 162/87; PULSE 87; RESP 18; TEMP 36.5; O2SAT 98
[2022-08-04] MEDS: Folic Acid 1 MG Tablet PO (08:02)
[2022-08-04] MEDS: Escitalopram Oxalate 20 MG Tablet PO (08:02)
[2022-08-04] MEDS: Thiamine Hydrochloride 100 MG Tablet PO (08:02)
[2022-08-04] MEDS: Pantoprazole Sodium 40 MG Tablet PO (08:02)
[2022-08-04] MEDS: Lisinopril 40 MG Tablet PO (08:03)
[2022-08-04] MEDS: ARIPiprazole 5 MG Tablet PO (08:03)
[2022-08-04 09:44] VITALS: O2SAT 95
--- NOTE | 2022-08-04 10:35 | DCINST_ITS ---
Discharge Instructions Diet Discharge Diet: Low fat / Low cholesterol and 2000 mg Sodium Diet Activity Discharge Activity: Return to Normal Activity Follow Up Care Test Results: Test results from this visit will be discussed in further detail at your follow- up appointment, if applicable. Discharge Plan Admission Admit Date/Time: 08/01/22 16:23 Primary Reason for Your Visit: Acute alcohol withdrawal Attending Provider: Vicki Reyes Primary Care Provider: Care Physician,No Primary Consulting Providers: Amena Sosa Instructions Additional Instructions / Restrictions: Take note of changes to your medications. Follow-up with PCP within 2 weeks Follow-up with your alcohol rehab program as scheduled. Discharge Orders/Prescriptions Prescriptions: New amlodipine 5 mg Tablet 5 mg PO DAILY 30 Days Qty: 30 0RF ferrous sulfate [FeroSul] 325 mg (65 mg iron) Tablet 325 mg PO 1200,1700 30 Days Qty: 60 0RF Continued pantoprazole [Protonix] 40 mg Tablet,Delayed Release (Dr/Ec) 40 mg PO DAILY levothyroxine 150 mcg Tablet 150 mcg PO DAILY lisinopril 40 mg Tablet 40 mg PO DAILY escitalopram oxalate [Lexapro] 20 mg Tablet 20 mg PO DAILY aripiprazole [Abilify] 5 mg Tablet 5 mg PO DAILY Referrals / Follow Up: Care Physician,No Primary [Primary Care Provider] - Disposition Disposition (needs filled in before D/C Order can be placed): Home, Self Care
--- NOTE | 2022-08-04 10:39 | DS.PCM_ITS ---
Providers Date of Admission: 08/01/22 Date of Discharge: 08/04/22 Primary Care Physician: No Primary Care Phys Reason For Visit: ALCOHOL DEPENDENCE Diagnosis Discharge Diagnosis (1) Alcohol withdrawal: Status: Acute Code(s): F10.939 - Alcohol use, unspecified with withdrawal, unspecified Plan 1. Acute alcohol withdrawal 2. Hypertension 3. Anxiety/depression 4. Hypothyroidism 6. Morbid Obesity 7. GERD 8. Iron deficiency anemia Medications at Discharge Home Medications aripiprazole 5 mg tablet (Abilify) 5 mg PO DAILY mood 06/23/22 escitalopram oxalate 20 mg tablet (Lexapro) 20 mg PO DAILY depression 06/23/22 levothyroxine 150 mcg tablet 150 mcg PO DAILY thyroid 06/23/22 lisinopril 40 mg tablet 40 mg PO DAILY HTN 06/23/22 pantoprazole 40 mg tablet,delayed release (Protonix) 40 mg PO DAILY GERD 06/23/22 amlodipine 5 mg tablet 5 mg PO DAILY 30 days #30 tabs 08/04/22 docusate sodium 100 mg capsule (Colace) 100 mg PO BID 30 days #60 caps 08/04/22 ferrous sulfate 325 mg (65 mg iron) tablet (FeroSul) 325 mg PO 1200,1700 30 days #60 tabs 08/04/22 Hospital Course Operations None Procedures None Summary of Care Provided Minutes Spent on Discharge: 25 Hospital Course: 41-year-old male with past medical history of hypertension, morbid obesity, anem ia who presented requesting for medical stabilization from alcohol withdrawal. Patient has symptoms of mild tremor, agitation, tactile disturbances. Patient is homeless and requested for medical stabilization. [facility] and managed on phenobarbital withdrawal protocol. He had elevated blood pressure. Amlodipine was added to his medications. Patient was seen by the building construction ironworker and admitted to [facility] in [place]. He was given prescriptions for oral iron, Colace, amlodipine. He needs to follow-up with his primary care doctor within 1 to 2 weeks. Physical Exam Narrative Physical exam: General: Alert, Oriented x3, Cooperative, No apparent distress, morbidly obese, appears unkempt HEENT: Atraumatic Oral: Moist Mucosa Neck: Supple Lungs: Clear to auscultation Cardiovascular: HS I+II, regular, no murmurs Abdomen: Bowel Sounds Present, Soft, Non Tender Extremities: No edema Skin: No rashes, No breakdown Neurological: Grossly intact Psych/Mental Status: Appropriate Weight / BMI Weight Weight: 158.168 kg Body Mass Index (BMI) 43.5 ABG / Lab / Microbiology Data Result Diagrams: 08/01/22 16:35 08/01/22 16:35 D/C Instructions Discharge Diet: Low fat / Low cholesterol and 2000 mg Sodium Diet Meaningful Use Info Meaningful Use Diagnoses (Choose all that apply): None applicable Discharge Plan Admission Admit Date/Time: 08/01/22 16:23 Primary Reason for Your Visit: Acute alcohol withdrawal Attending Provider: Vicki Reyes Primary Care Provider: Care Physician,No Primary Consulting Providers: Amena Sosa Instructions Additional Instructions / Restrictions: Take note of changes to your medications. Follow-up with PCP within 2 weeks Follow-up with your alcohol rehab program as scheduled. Discharge Orders/Prescriptions Prescriptions: New amlodipine 5 mg Tablet 5 mg PO DAILY 30 Days Qty: 30 0RF ferrous sulfate [FeroSul] 325 mg (65 mg iron) Tablet 325 mg PO 1200,1700 30 Days Qty: 60 0RF docusate sodium [Colace] 100 mg capsule 100 mg PO BID 30 Days Qty: 60 0RF Continued pantoprazole [Protonix] 40 mg Tablet,Delayed Release (Dr/Ec) 40 mg PO DAILY levothyroxine 150 mcg Tablet 150 mcg PO DAILY lisinopril 40 mg Tablet 40 mg PO DAILY escitalopram oxalate [Lexapro] 20 mg Tablet 20 mg PO DAILY aripiprazole [Abilify] 5 mg Tablet 5 mg PO DAILY Referrals / Follow Up: Care Physician,No Primary [Primary Care Provider] - Disposition Disposition (needs filled in before D/C Order can be placed): Home, Self Care Charges/Coding Visit Charges Inpatient E&M: 18924 Disch Hosp
--- NOTE | 2022-08-04 10:44 | CASEMGMT ---
Social Work SW set up wheel chair transportation via [facility] for 12:30pm for pt to go to [facility] [id number] [place], [place], [address]. SW notified Karen Saxena, [facility] Outpatient Counselor, who is facilitating pt discharge of transport time. LESIA Borrego
[2022-08-04 11:00] VITALS: BP 154/94
[2022-08-04] MEDS: amLODIPine 5 MG Tablet PO (11:23)
[2022-08-04] MEDS: Ferrous Sulfate 325 MG Tablet PO (11:23)
[2022-08-04 14:11] VITALS: BP 150/99; PULSE 89; RESP 18; TEMP 36.8; O2SAT 97
--- NOTE | 2022-08-04 14:29 | PHA.DC.MR ---
Pharmacy Service has performed discharge medication reconciliation for this patient. The patient's discharge medication list was reviewed for discrepancies and discrepancies were resolved. Home Medications aripiprazole 5 mg tablet (Abilify) 5 mg PO DAILY mood 06/23/22 escitalopram oxalate 20 mg tablet (Lexapro) 20 mg PO DAILY depression 06/23/22 levothyroxine 150 mcg tablet 150 mcg PO DAILY thyroid 06/23/22 lisinopril 40 mg tablet 40 mg PO DAILY HTN 06/23/22 pantoprazole 40 mg tablet,delayed release (Protonix) 40 mg PO DAILY GERD 06/23/22 amlodipine 5 mg tablet 5 mg PO DAILY 30 days #30 tabs 08/04/22 docusate sodium 100 mg capsule (Colace) 100 mg PO BID 30 days #60 caps 08/04/22 ferrous sulfate 325 mg (65 mg iron) tablet (FeroSul) 325 mg PO 1200,1700 30 days #60 tabs 08/04/22
== END 2022-08-04 14:35 | DRG 775 ==
LOC: ED 16:39 → MS3 16:47
PROVIDERS: Admitting Provider Family Medicine; Emergency Provider Emergency Medicine; Visit Provider Internal Medicine
DX: F10.239 Alcohol dependence with withdrawal, unspecified (principal); D50.9 Iron deficiency anemia, unspecified; E66.01 Morbid (severe) obesity due to excess calories; E03.9 Hypothyroidism, unspecified; F12.90 Cannabis use, unspecified, uncomplicated; Z68.41 Body mass index [BMI] 40.0-44.9, adult; I10 Essential (primary) hypertension; F41.9 Anxiety disorder, unspecified; K21.9 Gastro-esophageal reflux disease without esophagitis; L40.9 Psoriasis, unspecified; F17.210 Nicotine dependence, cigarettes, uncomplicated; F32.A Depression, unspecified; Z79.899 Other long term (current) drug therapy; Z59.00 Homelessness unspecified
CPT/HCPCS: 80048; 80053; 80076; 80307; 80329; 81001; 82077; 82728; 83540; 83550; 83735; 84100; 84443; 85025; 87811; 93005; 94762; 96372; 96374; 96375; 96376; 99283; 99285; J7120; A4216; G0480; J2405

== ENCOUNTER 2023-02-09 20:30 | Emergency (ER) | payer MEDICAID, SELFPAY ==
[2023-02-09 20:32] VITALS: BP 154/107; PULSE 117; RESP 18; TEMP 36.1; O2SAT 96; BMI 33.7
== END 2023-02-09 21:07 | disposition left against medical advice (07) ==
LOC: ED 21:08
DX: F99 Mental disorder, not otherwise specified (principal)

== ENCOUNTER 2023-02-10 00:25 | Emergency (ER) | payer SELFPAY ==
[2023-02-10 00:26] VITALS: BP 133/86; PULSE 112; RESP 22; TEMP 36.1; O2SAT 92; BMI 47.6
--- NOTE | 2023-02-10 01:06 | EX.ED.DYSGE1 ---
HPI History of Present Illness Chief Complaint: ETOH Intox Narrative Narrative: Patient is a 42-year-old male with past medical history of of depression alcohol abuse and dependence. He was in senior living and was released today. He states he is homeless and has no place to stay. He reports that he has been accepted to a rehab facility but he needs to undergo detox from alcohol prior to being accepted and secondary to this he comes in for evaluation. At this time he denies any suicidal ideation. He does admit to drinking anywhere from 20 beers to 1/[address] [facility] Medical History Alcohol abuse Anxiety and depression Cannabis use disorder Hypertension Hypothyroidism Morbid obesity Home Medications aripiprazole 5 mg tablet (Abilify) 5 mg PO DAILY mood 06/23/22 [History Last Taken 06/21/22] escitalopram oxalate 20 mg tablet (Lexapro) 20 mg PO DAILY depression 06/23/22 [History Last Taken 06/21/22] levothyroxine 150 mcg tablet 150 mcg PO DAILY thyroid 06/23/22 [History Last Taken 06/21/22] lisinopril 40 mg tablet 40 mg PO DAILY HTN 06/23/22 [History Last Taken 06/21/22] pantoprazole 40 mg tablet,delayed release (Protonix) 40 mg PO DAILY GERD 06/23/22 [History Last Taken 06/21/22] amlodipine 5 mg tablet 5 mg PO DAILY 30 days #30 tabs 08/04/22 [Rx Last Taken Unknown] docusate sodium 100 mg capsule (Colace) 100 mg PO BID 30 days #60 caps 08/04/22 [Rx Last Taken Unknown] ferrous sulfate 325 mg (65 mg iron) tablet (FeroSul) 325 mg PO 1200,1700 30 days #60 tabs 08/04/22 [Rx Last Taken Unknown] Allergy/AdvReac Type Severity Reaction Status Date / Time haloperidol [From Haldol] AdvReac Other Verified 02/10/23 00:31 Family History Father Diabetes Mother CAD (coronary artery disease) Surgical History History of appendectomy Social History (Updated 02/10/23 @ 01:[address] Amena Sosa MD) housing: homeless Smoking Status: Former smoker how long ago did patient quit smoking: Reports quitting in 2016, prior to this 1 ppd since teen until quit. alcohol intake: current Previous attempts at quittin details: Reports currently 12-19 tall boys daily. substance use type: marijuana ROS ROS ED ROS Narrative Please note review of systems may be unreliable as patient is intoxicated Constitutional Constitutional ED: Denies chills or fever(s) Eyes Eyes: Denies change in vision ENT ENT ED: Denies sore throat Cardiovascular Cardiovascular: Denies chest pain Respiratory/Chest Respiratory/Chest: Denies cough or dyspnea Gastrointestinal Gastrointestinal: Denies abdominal pain, diarrhea, nausea or vomiting Genitourinary Genitourinary ED: Denies dysuria Musculoskeletal Musculoskeletal: Denies myalgias Integumentary Denies rash Neurologic Neurologic: Denies headache(s) Psychiatric Psychiatric: Denies suicidal ideation or suicidal thoughts Hematologic/Lymphatic Hematologic/Lymphatic: Denies easy bleeding or easy bruising EXAM Physical Exam Const Vital Signs: 02/10/23 00:26 Temperature 97 F L Temperature Source Temporal Pulse Rate 112 H Respiratory Rate 22 H Blood Pressure 133/86 H Blood Pressure Mean 101 Pulse Ox 92 Oxygen Delivery Method Room Air Positive well nourished, well developed and obese Constitutional Narrative: Patient is intoxicated but otherwise awake and alert protecting his airway and in no acute distress General Appearance ED: well developed Nutritional Appearance: obese HEENT Reports moist mucous membranes Eyes EOMs intact bilaterally Eyes Narrative: Pupils are slightly dilated with scleral injection consistent with alcohol use General Eye ED: Negative for scleral icterus Neck supple Resp normal respiratory effort and clear to auscultation bilaterally Cardio regular rhythm Rate: tachycardic and other Other Details: Radial pulses are plus 2 out of 4 bilaterally are equal and symmetric GI normal to inspection, nondistended, normoactive bowel sounds, non-tender, non-distended and no masses GI Narrative: No voluntary guarding or rigidity no pulsatile mass Auscultation: normoactive bowel sounds Palpation: soft Extremity normal to inspection Neuro oriented x3 and CN's II-XII intact bilaterally Sensorium / Orientation: alert Psych Psych Narrative: Patient is intoxicated but otherwise has no suicidal ideation Skin no rashes or lesions noted General Skin Exam: Negative for jaundice MDM MDM MDM Narrative Medical decision making narrative: Patient presented to the ER visibly intoxicated but otherwise without suicidal ideation or signs of acute infection. He does not have any upper abdominal pain there is no scleral icterus or jaundice and concern for pancreatitis is low. He does not have any signs of delirium tremens either and therefore there is need to start Librium or phenobarbital or Ativan. As the patient is requesting detox from alcohol the case was discussed with the medicine service and they are agreeable to take him at this time to provide that service. This plan of care was discussed with the patient and he is agreeable to it. History & Record Review Discussion w/independent historian: Patient Management Discussion w/another healthcare provider: Hospitalist Discharge Plan Triage Chief Complaint: ETOH Intox ED Provider: Malvin Martins Dx/Rx/DC Orders Clinical Impression: Alcohol abuse, Alcohol intoxication, Desire for detoxification Prescriptions: No Action pantoprazole [Protonix] 40 mg Tablet,Delayed Release (Dr/Ec) 40 mg PO DAILY levothyroxine 150 mcg Tablet 150 mcg PO DAILY lisinopril 40 mg Tablet 40 mg PO DAILY escitalopram oxalate [Lexapro] 20 mg Tablet 20 mg PO DAILY aripiprazole [Abilify] 5 mg Tablet 5 mg PO DAILY amlodipine 5 mg Tablet 5 mg PO DAILY 30 Days Qty: 30 0RF ferrous sulfate [FeroSul] 325 mg (65 mg iron) Tablet 325 mg PO 1200,1700 30 Days Qty: 60 0RF docusate sodium [Colace] 100 mg capsule 100 mg PO BID 30 Days Qty: 60 0RF Primary Care Provider: Care Physician,No Primary Referrals: Care Physician,No Primary [Primary Care Provider] - Disposition Disposition: Acute Care Hospital [facility]
--- NOTE | 2023-02-10 01:12 | PCM.HP.STD ---
HPI - General General Date of Admission: 02/10/23 Date of Service: 02/10/23 Chief Complaint: EtOH abuse, requesting detoxification HPI Narrative The patient is a 41 y/o M w/ PMHx: Chronic microcytic anemia, Morbid Obesity, HTN, HLD, Anxiety and Depression, Hypothyroidism, Cannabis usage, Suspected ARPITA, EtOH abuse (~ 12-19 tall boys daily) with last intake prior to presentation with reported sobriety following most recent detoxification 08/01/22 admission for several months unfortunately starting to drink again over the last couple weeks, escalating his amount now re-presenting to the [facility] ED on 02/10/23 with request for detoxification with evidence inebriation and no active withdrawal symptoms currently. From discussion also patient has been unfortunately skipping some of his medications with discussions undertaken and plan resumption. Likely missing any of his anxiety and depressive medications has a significant impact on his alcohol abuse. In the ED work-up included T97, heart rate 112, BP 133/86, respiratory rate 22, 92% oxygenation although improves once patient sits up and is more alert. Pending CBC, CMP, UDS and ethyl alcohol level upon requested evaluation of patient. [facility] Medical History Alcohol abuse Anxiety and depression Cannabis use disorder Hypertension Hypothyroidism Morbid obesity Home Medications aripiprazole 5 mg tablet (Abilify) 5 mg PO DAILY mood 06/23/22 [History Last Taken 06/21/22] escitalopram oxalate 20 mg tablet (Lexapro) 20 mg PO DAILY depression 06/23/22 [History Last Taken 06/21/22] levothyroxine 150 mcg tablet 150 mcg PO DAILY thyroid 06/23/22 [History Last Taken 06/21/22] lisinopril 40 mg tablet 40 mg PO DAILY HTN 06/23/22 [History Last Taken 06/21/22] pantoprazole 40 mg tablet,delayed release (Protonix) 40 mg PO DAILY GERD 06/23/22 [History Last Taken 06/21/22] amlodipine 5 mg tablet 5 mg PO DAILY 30 days #30 tabs 08/04/22 [Rx Last Taken Unknown] docusate sodium 100 mg capsule (Colace) 100 mg PO BID 30 days #60 caps 08/04/22 [Rx Last Taken Unknown] ferrous sulfate 325 mg (65 mg iron) tablet (FeroSul) 325 mg PO 1200,1700 30 days #60 tabs 08/04/22 [Rx Last Taken Unknown] Allergy/AdvReac Type Severity Reaction Status Date / Time haloperidol [From Haldol] AdvReac Other Verified 02/10/23 00:31 Family History Father Diabetes Mother CAD (coronary artery disease) Surgical History History of appendectomy Social History (Updated 02/10/23 @ 01:[address] Amena Sosa MD) housing: homeless Smoking Status: Former smoker how long ago did patient quit smoking: Reports quitting in 2016, prior to this 1 ppd since teen until quit. alcohol intake: current Previous attempts at quittin details: Reports currently 12-19 tall boys daily. substance use type: marijuana ROS ROS Narrative Admission Review of Systems: CONSTITUTIONAL: No weight loss, fever, chills, + weakness or fatigue. HEENT: Eyes: No visual loss, blurred vision, double vision or yellow sclerae. Ears, Nose, Throat: No hearing loss, sneezing, congestion, runny nose or sore throat. SKIN: No rash or itching, lesions, wounds. CARDIOVASCULAR: No chest pain, chest pressure or chest discomfort, palpitations, edema, orthopnea, syncopal events. RESPIRATORY: No shortness of breath, cough or sputum, wheezing, hemoptysis. GASTROINTESTINAL: No anorexia, nausea, vomiting or diarrhea, abdominal pain, melena, BRBPR. GENITOURINARY: No dysuria, frequency, urgency or retention. NEUROLOGICAL: No headache, dizziness, syncope, paralysis, ataxia, focal weakness, change in bowel or bladder control, seizure. MUSCULOSKELETAL: + muscle, back pain, joint pain or stiffness. HEMATOLOGIC: + anemia, bleeding or bruising. LYMPHATICS: No enlarged nodes. No history of splenectomy. PSYCHIATRIC: + history of depression or anxiety. ENDOCRINOLOGIC: No reports of sweating, cold or heat intolerance. No polyuria or polydipsia. ALLERGIES: No history of asthma, hives, eczema or rhinitis. Vital Signs Vital Signs Vital Signs: 02/10/23 00:26 Temperature 97 F L Temperature Source Temporal Pulse Rate 112 H Respiratory Rate 22 H Blood Pressure 133/86 H Blood Pressure Mean 101 Pulse Ox 92 Oxygen Delivery Method Room Air Weight Weight: 370 lb 13.08 oz Body Mass Index (BMI) 47.6 Physical Exam Narrative Physical Examination: General: Awake, alert, oriented x 3 and cooperative, laying in the bed, fatigued, suspect inebriation. Skin: Normal color, normal turgor, no icterus, no cyanosis except for occasional staged ecchymoses, abrasion, poor bilateral foot care HEENT: AT/NC, EOMI, PERRLA, mildly dry MM, no carotid bruits or JVD noted; however, thickened neck makes evaluation. Lungs: Diminished, greater bases, appropriate effort, no rales, ronchi or wheezing. Heart: Mildly tachycardic with regular rhythm; no gallop, rub audible. Abdomen: Soft, morbidly obese, NTTP, difficult to assess distention given habitus, distant bowel sounds, difficulty assessing HSM given morbidly obese habitus Extremities: No cyanosis, clubbing, or edema, see skin. Neurological: Patient awake, alert, oriented as noted, cognitive function intact; pupils equally reactive to light and accommodation, cranial nerves II-XII grossly normal, moving all 4 extremities, no focal deficits, strength moderately global decrease secondary to suspected inebriation currently. Psychiatric: Affect appears flat, no acute evidence of depressive or anxiety feelings but does have underlying history. Assessment & Plan Assessment/Plan (1) Alcohol dependence: PLAN: Plan The patient is a 41 y/o M w/ PMHx: Chronic microcytic anemia, Morbid Obesity, HTN, HLD, Anxiety and Depression, Hypothyroidism, Cannabis usage, Suspected ARPITA, EtOH abuse (~ 12-19 tall boys daily) with last intake prior to presentation with reported sobriety following most recent detoxification 08/01/22 admission for several months unfortunately starting to drink again over the last couple weeks, escalating his amount now re-presenting to the [facility] ED on 02/10/23 with request for detoxification with evidence inebriation and no active withdrawal symptoms currently. #1.? Acute EtOH abuse with requested detoxification: Will admit to [facility], routine labs obtained in the ED upon presentation and pending upon requested evaluation patient. Given interest in sobriety, will initiate and continue on protocol with taper course of Phenobarbital, as needed gabapentin, Catapres, Bentyl, Vistaril, IV fluids, IV antiemetics, Tylenol as needed for pain. Will consult Case management for assistance for transition to next level of rehabilitation care. Mag, phos pending. #2.? Hypertension: Continue home regimen including lisinopril, PRN hydralazine. #3.? Anxiety and depression: We will continue patient home escitalopram and Abilify regimen. #4.? Suspected ARPITA: During prior presentation and recommended patient follow-up for sleep apnea testing which has not been performed but unfortunately patient does have notable barriers to care. We will request trending pulse oximeter during admission. #5.? Hypothyroidism: We will continue patient home levothyroxine regimen. #6.? Morbid Obesity: Weight loss and lifestyle changes encouraged. #7.? GERD: We will continue patient on PPI. #8.? Chronic cannabis usage: Patient uses heavy cannabis, UDS pending. #9.? Iron deficiency anemia, chronic: Admission hemoglobin pending upon evaluation, most recent presentation hemoglobin had been in the 11 range, will continue iron supplementation. #10.? Former tobacco use: Encourage continued tobacco cessation. #11. DVT prophylaxis: Low risk for current presentation, encourage ambulation. Admission Evaluation Time spent evaluating chart, patient history, patient evaluation, care planning and discussion with specialists: 60 minutes. Charges/Coding Visit Charges Inpatient E&M: 37975 Init Hosp L2
--- NOTE | 2023-02-10 01:52 | ED.RN ---
Pt cussing at staff and threatening staff. educated pt numerous times about rules to be admitted to detox program. security at bedside. pt threatening to leave AMA numerous times while attempting to get blood work and urine sample. pt got himself dressed and walked out of hospital.
[2023-02-10 02:42] LABS: Amphetamine Urine VISTA NEGATIVE (<1000 ng/mL); Barbiturate Urine VISTA NEGATIVE (< 200 ng/mL); Benzodiazepine Urine VISTA POSITIVE (< 200 ng/mL); Cocaine Urine VISTA NEGATIVE (< 300 ng/mL); Ecstacy Urine VISTA NEGATIVE (< 500 ng/mL); Methadone Urine VISTA NEGATIVE (< 300 ng/mL); PCP Urine VISTA NEGATIVE (< 25 ng/mL); THC Urine VISTA POSITIVE (< 50 ng/mL); Vista UDS pH Range 4
== END 2023-02-10 02:12 | disposition left against medical advice (07) ==
LOC: ED 01:11 → PCU 01:18
PROVIDERS: Emergency Provider Emergency Medicine; Visit Provider Emergency Medicine
DX: F10.229 Alcohol dependence with intoxication, unspecified (principal); I10 Essential (primary) hypertension; Z87.891 Personal history of nicotine dependence; E03.9 Hypothyroidism, unspecified; Z59.00 Homelessness unspecified; F41.8 Other specified anxiety disorders; Z79.899 Other long term (current) drug therapy
CPT/HCPCS: 80307; 99282

== ENCOUNTER 2023-02-10 10:50 | Emergency (ER) | payer SELFPAY ==
[2023-02-10 10:52] VITALS: BP 145/97; PULSE 107; RESP 18; TEMP 36.8; O2SAT 98; BMI 46.8
--- NOTE | 2023-02-10 11:10 | ED.RN ---
pt has not been seen by physician. wanted to leave ED. pt is not pink slipped. Officer Odilon aware and going outside to talk with patient.
== END 2023-02-10 11:16 | disposition left against medical advice (07) ==
DX: F10.129 Alcohol abuse with intoxication, unspecified (principal)
CPT/HCPCS: 99283

== ENCOUNTER 2023-02-10 18:15 | Inpatient (IN) | payer SELFPAY ==
[2023-02-10 18:17] VITALS: BP 129/100; PULSE 115; RESP 16; TEMP 36.1; O2SAT 94; BMI 49.8
--- NOTE | 2023-02-10 18:39 | EDS_ITS ---
HPI History of Present Illness Chief Complaint: ETOH Intox Informant: patient Onset/Context/Timing Onset: Today Context: Gradual Onset Timing: Continuous Worsened by: Nothing Relieved by: Ibuprofen Associated Symptoms Associated Symptoms: Positive for vomiting* and palpatations; Negative for diarrhea*, fever*, rash*, seizure, tremor, suicidal ideation or homicidal ideation Narrative Narrative: Presents with alcohol intoxication requesting detox. Patient states his last drink was approximate 11 hours prior to arrival. Patient states he wants detox today. Patient was seen here yesterday and left AGAINST MEDICAL ADVICE prior to being admitted to the floor. Patient states he drinks 1 gallon of vodka per day. Patient states he also had some tall boys today. Patient admits to some nausea and vomiting. Patient denies any diarrhea. Patient denies any fevers or chills. Patient denies any seizures or tremors. Patient admits to some palpitations where he feels like his heart is racing. Patient denies any suicidal or homicidal ideations. [facility] Medical History Alcohol abuse Anxiety and depression Cannabis use disorder Hypertension Hypothyroidism Morbid obesity Home Medications escitalopram oxalate 20 mg tablet (Lexapro) 20 mg PO DAILY depression 06/23/22 [History Last Taken 06/21/22] levothyroxine 150 mcg tablet 150 mcg PO DAILY thyroid 06/23/22 [History Last Taken 06/21/22] lisinopril 40 mg tablet 40 mg PO DAILY HTN 06/23/22 [History Last Taken 06/21/22] pantoprazole 40 mg tablet,delayed release (Protonix) 40 mg PO DAILY GERD 06/23/22 [History Last Taken 06/21/22] amlodipine 5 mg tablet 5 mg PO DAILY 30 days #30 tabs 08/04/22 [Rx Last Taken Unknown] ferrous sulfate 325 mg (65 mg iron) tablet (FeroSul) 325 mg PO 1200,1700 30 days #60 tabs 08/04/22 [Rx Last Taken Unknown] Allergy/AdvReac Type Severity Reaction Status Date / Time haloperidol [From Haldol] AdvReac Other Verified 02/10/23 18:17 Family History Father Diabetes Mother CAD (coronary artery disease) Surgical History History of appendectomy Social History housing: homeless Smoking Status: Current every day smoker tobacco type: cigarettes how long ago did patient quit smoking: Reports quitting in 2016, prior to this 1 ppd since teen until quit. alcohol intake: current Previous attempts at quittin details: Reports currently 12-19 tall boys daily. substance use type: marijuana ROS ROS ED Constitutional Constitutional ED: Denies chills or fever(s) Eyes Eyes: Reports blurry vision; Denies change in vision ENT ENT ED: Denies rhinorrhea or sore throat Cardiovascular Cardiovascular: Denies chest pain or palpitations Respiratory/Chest Respiratory/Chest: Denies cough or dyspnea Gastrointestinal Gastrointestinal: Reports nausea and vomiting Genitourinary Genitourinary ED: Denies dysuria or hematuria Musculoskeletal Musculoskeletal: Denies back pain or neck pain Integumentary Denies abscess or rash Neurologic Neurologic: Reports headache(s); Denies weakness Allergic/Immunologic Allergic/Immunologic ED: Denies mouth swelling or urticaria EXAM Physical Exam Const Vital Signs: 02/10/23 18:17 Temperature 97 F L Temperature Source Temporal Pulse Rate 115 H Respiratory Rate 16 Blood Pressure 129/100 H Blood Pressure Mean 109 Pulse Ox 94 Oxygen Delivery Method Room Air Positive well nourished, well developed and obese General Appearance ED: well developed and NAD Nutritional Appearance: obese HEENT Reports moist mucous membranes Neck supple and no JVD Resp normal respiratory effort and clear to auscultation bilaterally Cardio regular rhythm Rate: tachycardic GI normal to inspection, nondistended, normoactive bowel sounds and non-tender Palpation: soft Extremity normal to inspection General Extremety ED: Negative for edema or tenderness General Extremity: Negative for edema Neuro oriented x3, CN's II-XII intact bilaterally and no sensory deficits noted Sensorium / Orientation: alert Motor Exam: strength 5/5 throughout Psych mental status grossly normal Appearance: disheveled Activity / Motor Behavior: appropriate eye contact Thought Content: No suicidality and No homicidality Skin no rashes or lesions noted MDM MDM MDM Narrative Medical decision making narrative: Differential diagnosis includes alcohol intoxication, alcohol dependence, and substance abuse. CBC will be obtained to assess for leukocytosis and anemia. Comprehensive metabolic profile will be obtained to assess for hepatic function, renal function, and electrolyte abnormality. Lipase will be obtained to assess for alcoholic pancreatitis. Serum alcohol level will be obtained to assess for alcohol intoxication. Urine tox screen will be obtained to assess for substance abuse. Management Discussion w/another healthcare provider: Hospitalist Treatment and Re-Evaluation Narrative: Patient was given a dose of phenobarbital here. Case was discussed with the hospitalist. He will admit the patient to his service. Patient understands and is agreeable with the plan. All questions were answered. Discharge Plan Triage Chief Complaint: ETOH Intox Other Complaint: Mental Health Substance Abuse ED Provider: Emmanuel Barnett Dx/Rx/DC Orders Clinical Impression: Alcohol withdrawal, Alcohol dependence, Cannabis use disorder Prescriptions: No Action pantoprazole [Protonix] 40 mg Tablet,Delayed Release (Dr/Ec) 40 mg PO DAILY levothyroxine 150 mcg Tablet 150 mcg PO DAILY lisinopril 40 mg Tablet 40 mg PO DAILY escitalopram oxalate [Lexapro] 20 mg Tablet 20 mg PO DAILY amlodipine 5 mg Tablet 5 mg PO DAILY 30 Days Qty: 30 0RF ferrous sulfate [FeroSul] 325 mg (65 mg iron) Tablet 325 mg PO 1200,1700 30 Days Qty: 60 0RF Primary Care Provider: Care Physician,No Primary Referrals: Care Physician,No Primary [Primary Care Provider] - Disposition Disposition: Acute Care Hospital [facility]
[2023-02-10] MEDS: Ondansetron ODT 4 MG Tablet PO (19:51)
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
[2023-02-10 20:15] LABS: Amphetamine Urine VISTA NEGATIVE (<1000 ng/mL); Barbiturate Urine VISTA NEGATIVE (< 200 ng/mL); Benzodiazepine Urine VISTA POSITIVE (< 200 ng/mL); Cocaine Urine VISTA NEGATIVE (< 300 ng/mL); Ecstacy Urine VISTA NEGATIVE (< 500 ng/mL); Methadone Urine VISTA NEGATIVE (< 300 ng/mL); PCP Urine VISTA NEGATIVE (< 25 ng/mL); THC Urine VISTA POSITIVE (< 50 ng/mL); Vista UDS pH Range 5
[2023-02-10 20:16] VITALS: BP 122/79; PULSE 102; RESP 18; TEMP 37.1
[2023-02-10 20:17] LABS: Absolute Lymphocyte Count 1.79 X10^3/uL (0.83-4.51); Absolute Neutrophil Count 4.9 X10^3/uL (2.0-7.7); Basophil% 1.3 % (0-1); Eosinophil# 0.39 X10^3/uL; Eosinophils% 5.1 % (0-5); Hematocrit 40.6 % (40-54); Hemoglobin 12.2 g/dL (13.0-16.5); Lymphocyte # 1.79 X10^3/ul (0.83-4.51); Lymphocyte % 23.2 % (19-41); Mean Corpuscular Hgb 22.8 pg (27.0-32.0); Mean Corpuscular Volume 75.7 fL (80-94); Mean Platelet Vol. 8.6 fl (6.2-12.0); Monocyte% 6.5 % (0-10); NRBC Flagged by Analyzer 0 % (0-5); Neutrophil # 4.88 X10^3/uL (2.7-7.7); Neutrophil % 63.4 % (47-70); POSITIVE MORPHOLOGY YES; Platelet Count 283 K/mm3 (150-450); RBC Distribution Width CV 20.3 % (11.6-14.6); Red Blood Count 5.36 M/mm3 (4.6-6.2); White Blood Count 7.7 K/mm3 (4.4-11.0)
[2023-02-10 20:18] LABS: Differential Indicated SCAN CRITERIA MET
[2023-02-10 20:34] LABS: ALB/GLOB Ratio 0.8 RATIO (0.9-2.4); AST(SGOT) 77 U/L (15-37); Alanine Aminotransfer ALT/SGPT 95 U/L (16-61); Albumin, Serum 3.7 g/dL (3.2-5.0); Alkaline Phosphatase 109 U/L (45-117); Anion Gap 8 (5-15); BUN 8 mg/dL (7-18); BUN/Creat Ratio 9.3 RATIO (10-20); Calcium,Total 8.8 mg/dL (8.5-10.1); Chloride 106 mmol/L (98-107); Creatinine, Serum 0.86 mg/dL (0.70-1.30); EST Glomerular Filtration Rate 103 mL/min (>60); Est Glom Filt Rate - Afr Amer 125 mL/min (>60); Estimated Creatinine Clearance 126.46 ml/min; Globulin 4.5 g/dL (2.2-4.2); Glucose 115 mg/dL (74-106); Lipase 112 U/L (73-393); Potassium 3.8 mmol/L (3.5-5.1); Protein, Total 8.2 g/dL (6.4-8.2); Sodium Level 142 mmol/L (136-145)
[2023-02-10 20:47] LABS: Differential Comment SCANNED
[2023-02-10 20:48] LABS: Anisocytosis 1+
[2023-02-10 20:52] LABS: T3 Total - Triiodothyronine 0.98 ng/mL (0.6-1.81)
[2023-02-10 20:57] LABS: Free T3 2.6 pg/mL (2.18-3.98); T4 Free Direct 0.63 ng/dL (0.76-1.46); T4 Total, Thyroxin 5.4 ug/dL (4.5-12.1); Thyroid Stim Hormone (TSH) 6.72 uIU/mL (0.358-3.74)
[2023-02-10 21:09] VITALS: BMI 48.5
[2023-02-10 23:40] VITALS: BP 121/76; PULSE 107; RESP 18; TEMP 36.4; O2SAT 97
[2023-02-10] MEDS: Phenobarbital 32.4 MG Tablet 64.8 MG PO (23:52)
[2023-02-10] MEDS: 0.9% Saline Lock 10 ML Syringe IV (23:54)
[2023-02-11 02:35] VITALS: BP 119/57; PULSE 109; RESP 20; TEMP 36.8; O2SAT 92
[2023-02-11] MEDS: Phenobarbital 32.4 MG Tablet 64.8 MG PO ×6 (02:36→20:35)
[2023-02-11 04:34] VITALS: BP 144/92; PULSE 108; RESP 20; TEMP 37.1; O2SAT 95
[2023-02-11] MEDS: Levothyroxine 150 MCG Tablet PO (06:15)
[2023-02-11 09:00] LABS: Hemoglobin A1c 5.4 % (3.8-5.6)
[2023-02-11] MEDS: hydrOXYzine PAM 25 MG Capsule 50 MG PO ×2 (09:17→13:47)
[2023-02-11] MEDS: Gabapentin 300 MG Capsule PO ×2 (09:17→18:02)
[2023-02-11] MEDS: Dicyclomine 10 MG Capsule 20 MG PO ×2 (09:18→18:01)
[2023-02-11] MEDS: Folic Acid 1 MG Tablet PO (09:22)
[2023-02-11] MEDS: Thiamine Hydrochloride 100 MG Tablet PO (09:22)
[2023-02-11] MEDS: Lisinopril 40 MG Tablet PO (09:23)
[2023-02-11] MEDS: amLODIPine 5 MG Tablet PO (09:23)
[2023-02-11] MEDS: Escitalopram Oxalate 20 MG Tablet PO (09:23)
[2023-02-11] MEDS: Pantoprazole Sodium 40 MG Tablet PO (09:23)
[2023-02-11 09:24] VITALS: BP 151/98; PULSE 108; RESP 20; TEMP 37.2; O2SAT 97
--- NOTE | 2023-02-11 10:21 | WOUNDNOTE ---
Wound photo: right foot
[2023-02-11 13:54] VITALS: BP 129/63; PULSE 92; RESP 18; TEMP 37.3; O2SAT 94
[2023-02-11] MEDS: 0.9% Saline Lock 10 ML Syringe IV ×2 (13:55→20:40)
[2023-02-11 13:59] VITALS: O2SAT 94
--- NOTE | 2023-02-11 15:01 | PN.HOSP_ITS ---
Reason for Visit Reason for Visit: Follow-up for acute severe alcohol withdrawal syndrome. Patient drinks 1 gallon of vodka every day. Last drink was 7 hours prior to admission. Diagnoses Alcohol use, unspecified with intoxication, unspecified (02/10/23) Objective Data Objective Data Vital Signs: Vital Signs Temp Pulse Resp BP Pulse Ox O2 Del Method 99.2 F H 92 18 129/63 H 94 Room Air 02/11/23 13:54 02/11/23 13:54 02/11/23 13:54 02/11/23 13:54 02/11/23 13:59 02/11/23 13:59 Oxygen Delivery Method Room Air Weight: 368 lb 2.751 oz Body Mass Index (BMI) 48.5 Intake & Output: Intake and Output for Last 24 Hours 02/09/23 02/10/23 02/11/23 23:59 23:59 23:59 Intake Total 600 / 600 Balance 600 / 600 Lab / Micro Data Result Diagrams: 02/10/23 20:10 02/10/23 20:10 Labs: Laboratory Results - last 24 hr 02/10/23 19:46: Urine Opiates Screen NEGATIVE, Urine Methadone Screen NEGATIVE, Ur Barbiturates Screen NEGATIVE, Ur Phencyclidine Scrn NEGATIVE, Ur Amphetamines Screen NEGATIVE, MDMA (Ecstasy) Screen NEGATIVE, U Benzodiazepines Scrn POSITIVE H, Urine Cocaine Screen NEGATIVE, U Cannabinoids Screen POSITIVE H, Ur Drug Screen Comment 02/10/23 20:10: WBC 7.7, RBC 5.36, Hgb 12.2 L, Hct 40.6, MCV 75.7 L, MCH 22.8 L, MCHC 30.0 L, RDW Std Deviation 53.0 H, RDW Coeff of Nasima 20.3 H, Plt Count 283, MPV 8.6, Immature Gran % (Auto) 0.500, Neut % (Auto) 63.4, Lymph % (Auto) 23.2, [place] % (Auto) 6.5, Eos % (Auto) 5.1 H, Baso % (Auto) 1.3 H, Absolute Neuts (au to) 4.9, Absolute Lymphs (auto) 1.79, Nucleated RBC % 0, Differential Comment SCANNED, Anisocytosis 1+ 02/10/23 20:10: Sodium 142, Potassium 3.8, Chloride 106, Carbon Dioxide 28.0, Anion Gap 8, BUN 8, Creatinine 0.86, Estim Creat Clear Calc 126.46, Est GFR (MDRD) Af Amer 125, Est GFR (MDRD) Non-Af 103, BUN/Creatinine Ratio 9.3 L, Glucose 115 H, Calcium 8.8, Total Bilirubin 0.20, AST 77 H, ALT 95 H, Alkaline Phosphatase 109, Total Protein 8.2, Albumin 3.7, Globulin 4.5 H, Albumin/Globulin Ratio 0.8 L, Lipase 112 02/10/23 20:10: Ethyl Alcohol 78.0 02/10/23 20:10: Total T3 0.98 02/10/23 20:10: TSH 6.72 H, Free T4 0.63 L, Thyroxine (T4) 5.4, Free T3 pg/dL 2.6 02/10/23 20:10: Hemoglobin A1c 5.4 Micro: Microbiology 02/11/23 12:20 Nasal Secretion SARS-CoV-2 Antigen (Rapid) - Final Physical Exam Narrative Seen and examined. Patient having severe withdrawal symptoms including anxiety, panic, shivering, tremors restlessness cannot sleep. He also has chronic epigastric and right upper quadrant pain which gets worse after drinking alcohol. Had colonoscopy before but never had EGD. Physical exam General: Awake, oriented x3. Morbid obesity BMI 48.6 kg/m? HEENT: Atraumatic, PERRLA, EOMI, Normocephalic Oral: Oral mucosa dry. No Gingival or Mucosal Lesions/ Ulcerations Neck: Supple, No JVD, Negative Carotid Bruits Lungs: Air entry diminished in bilateral lung bases. No crepitation/rhonchi Cardiovascular: Regular rate, Regular Rhythm, Normal S1, Normal S2, No murmurs Abdomen: Mild tenderness over right upper quadrant and epigastric region. Bowel Sounds Present, Soft, Non-Distended : No renal angle tenderness. No suprapubic tenderness. Extremities: No edema, Capillary Refill Less than 3 Seconds Skin: No rashes, No breakdown Musculoskeletal: Tremors, restlessness. Generalized muscle tenderness of lower extremities. Neurological: Cranial nerves II-XII grossly intact, DTR 2+/4 and Symmetrical, Neuro grossly intact Psych/Mental Status: Flat affect. Assessment & Plan Assessment/Plan (1) Alcohol intoxication: PLAN: Plan 1. Acute alcohol withdrawal syndrome with history of chronic alcohol use disorder, dependence and tolerance with history of anxiety and depression: Patient was admitted after 7 hours of his alcohol drink therefore was intoxicated at the time of admission but currently having withdrawal symptoms. Last CIWA score 8. He signed AMA from ER yesterday before admission and then came back. U tox positive of cannabinoids and benzodiazepine. Serum alcohol 78. Serum lipase normal. On Lexapro. A1c 5.4. 2. Hypertension and morbid obesity, BMI 48.6 kg/m?: His blood pressure is controlled. ? BMI of 49, when he is more reasonable we will discuss lifestyle modifications ? Continue with Norvasc and lisinopril 3. Hypothyroidism: TSH 6.72, free T4 low 0.63. Synthroid dose increased to 175 mcg daily. ? ? Continue with Synthroid if we can get an IV on him I would recommend a TSH as his last one was in 2021 and was 14 4. GERD ? Stable ? Continue with PPI DVT: Ambulation Microbiology Past 72 Hours 02/11/23 12:20 Nasal Secretion SARS-CoV-2 Antigen (Rapid) - Final Laboratory Results 02/10/23 19:46: Urine Opiates Screen NEGATIVE, Urine Methadone Screen NEGATIVE, Ur Barbiturates Screen NEGATIVE, Ur Phencyclidine Scrn NEGATIVE, Ur Amphetamines Screen NEGATIVE, MDMA (Ecstasy) Screen NEGATIVE, U Benzodiazepines Scrn POSITIVE H, Urine Cocaine Screen NEGATIVE, U Cannabinoids Screen POSITIVE H, Ur Drug Screen Comment 02/10/23 20:10: WBC 7.7, RBC 5.36, Hgb 12.2 L, Hct 40.6, MCV 75.7 L, MCH 22.8 L, MCHC 30.0 L, RDW Std Deviation 53.0 H, RDW Coeff of Nasima 20.3 H, Plt Count 283, MPV 8.6, Immature Gran % (Auto) 0.500, Neut % (Auto) 63.4, Lymph % (Auto) 23.2, [place] % (Auto) 6.5, Eos % (Auto) 5.1 H, Baso % (Auto) 1.3 H, Absolute Neuts (auto) 4.9, Absolute Lymphs (auto) 1.79, Nucleated RBC % 0, Differential Comment SCANNED, Anisocytosis 1+ 02/10/23 20:10: Sodium 142, Potassium 3.8, Chloride 106, Carbon Dioxide 28.0, Anion Gap 8, BUN 8, Creatinine 0.86, Estim Creat Clear Calc 126.46, Est GFR (MDRD) Af Amer 125, Est GFR (MDRD) Non-Af 103, BUN/Creatinine Ratio 9.3 L, Glucose 115 H, Calcium 8.8, Total Bilirubin 0.20, AST 77 H, ALT 95 H, Alkaline Phosphatase 109, Total Protein 8.2, Albumin 3.7, Globulin 4.5 H, Albumin/Globulin Ratio 0.8 L, Lipase 112 02/10/23 20:10: Ethyl Alcohol 78.0 02/10/23 20:10: Total T3 0.98 02/10/23 20:10: TSH 6.72 H, Free T4 0.63 L, Thyroxine (T4) 5.4, Free T3 pg/dL 2.6 02/10/23 20:10: Hemoglobin A1c 5.4 77 minutes were spent in chart review, direct patient care, collaboration with other physicians as well as trying to get in touch with contacts of his to discuss his case and outpatient care Charges/Coding Visit Charges Inpatient E&M: 33935 Subs Hosp L2
[2023-02-11] MEDS: Lactated Ringers 1,000 ML 100 ML IV (15:49)
--- NOTE | 2023-02-11 15:54 | NURSING ---
Pt states he voided once two hours ago. This RN did not know that he voided nor did the MEDICAL SERVICES ASSISTANT. Pt bladder scanned at this time for 213cc. This RN just started IVF at this time. Will monitor output.
[2023-02-11 20:35] VITALS: BP 116/52; PULSE 92; RESP 20; TEMP 37.7; O2SAT 94
[2023-02-12] VITALS (7 sets, daily range): BP systolic 117–142; BP diastolic 47–91; PULSE 91–101; RESP 12–20; TEMP 36.7–37.3; O2SAT 90–95
[2023-02-12] MEDS: hydrOXYzine PAM 25 MG Capsule 50 MG PO (02:00)
[2023-02-12] MEDS: Phenobarbital 32.4 MG Tablet 64.8 MG PO ×5 (02:01→17:36)
[2023-02-12] MEDS: Gabapentin 300 MG Capsule PO ×2 (05:12→14:47)
[2023-02-12] MEDS: Levothyroxine 175 MCG Tablet PO (05:18)
[2023-02-12] MEDS: 0.9% Saline Lock 10 ML Syringe IV (06:41)
[2023-02-12 06:55] LABS: AST(SGOT) 38 U/L (15-37); Alanine Aminotransfer ALT/SGPT 59 U/L (16-61); Albumin, Serum 2.8 g/dL (3.2-5.0); Alkaline Phosphatase 101 U/L (45-117); Anion Gap 3 (5-15); BUN 17 mg/dL (7-18); BUN/Creat Ratio 20.8 RATIO (10-20); Bilirubin, Direct 0.07 mg/dL (0.00-0.30); Calcium,Total 8.1 mg/dL (8.5-10.1); Chloride 106 mmol/L (98-107); Creatinine, Serum 0.82 mg/dL (0.70-1.30); EST Glomerular Filtration Rate 110 mL/min (>60); Est Glom Filt Rate - Afr Amer 133 mL/min (>60); Estimated Creatinine Clearance 132.63 ml/min; GGTP 51 U/L (15-85); Globulin 3.8 g/dL (2.2-4.2); Glucose 100 mg/dL (74-106); Magnesium 2.3 mg/dL (1.6-2.6); Phosphorus 2.8 mg/dL (2.5-4.9); Potassium 4.1 mmol/L (3.5-5.1); Protein, Total 6.6 g/dL (6.4-8.2); Sodium Level 135 mmol/L (136-145)
[2023-02-12] MEDS: Pantoprazole Sodium 40 MG Tablet PO (09:23)
[2023-02-12] MEDS: Lisinopril 40 MG Tablet PO (09:24)
[2023-02-12] MEDS: Thiamine Hydrochloride 100 MG Tablet PO (09:24)
[2023-02-12] MEDS: Folic Acid 1 MG Tablet PO (09:24)
[2023-02-12] MEDS: Escitalopram Oxalate 20 MG Tablet PO (09:24)
[2023-02-12] MEDS: amLODIPine 5 MG Tablet PO (09:24)
--- NOTE | 2023-02-12 10:30 | PCM.PN.HOSP ---
Reason for Visit Reason for Visit: Diagnoses Alcohol use, unspecified with intoxication, unspecified (02/10/23) Follow-up for severe acute alcohol withdrawal syndrome. Subjective Subjective Patient is states he could not sleep last night because he was having multiple anxiety/panic attack, shivering and off and starts crying. He feels sorry that he signed AMA and uses bad words in the recent ED. Objective Data Objective Data Vital Signs: Vital Signs Temp Pulse Resp BP Pulse Ox O2 Del Method 98.6 F 91 12 137/87 H 91 Room Air 02/12/23 09:11 02/12/23 09:11 02/12/23 09:11 02/12/23 09:11 02/12/23 09:11 02/12/23 09:11 Oxygen Delivery Method Room Air Weight: 368 lb 2.751 oz Body Mass Index (BMI) 48.5 Intake & Output: Intake and Output for Last 24 Hours 02/10/23 02/11/23 02/12/23 23:59 23:59 23:59 Intake Total 1800 / 2200 800 / 800 Balance 1800 / 2200 800 / 800 Lab / Micro Data Result Diagrams: 02/10/23 20:10 02/12/23 05:56 Labs: Laboratory Results - last 24 hr 02/12/23 05:56: Sodium 135 L, Potassium 4.1, Chloride 106, Carbon Dioxide 26.0, Anion Gap 3 L, BUN 17, Creatinine 0.82, Estim Creat Clear Calc 132.63, Est GFR (MDRD) Af Amer 133, Est GFR (MDRD) Non-Af 110, BUN/Creatinine Ratio 20.8 H, Glucose 100, Calcium 8.1 L, Phosphorus 2.8, Magnesium 2.3, Total Bilirubin 0.20, Direct Bilirubin 0.07, GGT 51, AST 38 H, ALT 59, Alkaline Phosphatase 101, Total Protein 6.6, Albumin 2.8 L, Globulin 3.8 Micro: Microbiology 02/11/23 12:20 Nasal Secretion SARS-CoV-2 Antigen (Rapid) - Final Physical Exam Narrative Seen and examined. Patient having severe withdrawal symptoms including anxiety, panic, shivering, tremors restlessness cannot sleep. He also has labile mood and cries easily. He also has chronic epigastric and right upper quadrant pain which gets worse after drinking alcohol. Had colonoscopy before but never had EGD. Physical exam General: Awake, oriented x3. Morbid obesity BMI 48.6 kg/m? HEENT: Atraumatic, PERRLA, EOMI, Normocephalic Oral: Oral mucosa dry. No Gingival or Mucosal Lesions/ Ulcerations Neck: Supple, No JVD, Negative Carotid Bruits Lungs: Air entry diminished in bilateral lung bases. No crepitation/rhonchi Cardiovascular: Regular rate, Regular Rhythm, Normal S1, Normal S2, No murmurs Abdomen: Mild tenderness over right upper quadrant and epigastric region. Bowel Sounds Present, Soft, Non-Distended : No renal angle tenderness. No suprapubic tenderness. Extremities: No edema, Capillary Refill Less than 3 Seconds Skin: No rashes, No breakdown Musculoskeletal: Tremors, restlessness. Generalized muscle tenderness of lower extremities. Neurological: Cranial nerves II-XII grossly intact, DTR 2+/4 and Symmetrical, Neuro grossly intact Psych/Mental Status: Flat affect. Assessment & Plan Assessment/Plan (1) Alcohol intoxication: PLAN: Plan 1. Acute alcohol withdrawal syndrome with history of chronic alcohol use disorder, dependence and tolerance with history of anxiety and depression: Patient was admitted after 7 hours of his alcohol drink therefore was intoxicated at the time of admission but currently having withdrawal symptoms. Last CIWA score 8. He signed AMA from ER yesterday before admission and then came back. U tox positive of cannabinoids and benzodiazepine. Serum alcohol 78. Serum lipase normal. On Lexapro. A1c 5.4. 02/12: CIWA score is 16. Patient on phenobarbital based order set along with other adjunctive medications as needed for alcohol withdrawal symptom control. CIWA monitor. 2. Hypertension and morbid obesity, BMI 48.6 kg/m?: His blood pressure is controlled. ? BMI of 49, when he is more reasonable we will discuss lifestyle modifications ? Continue with Norvasc and lisinopril 3. Hypothyroidism: TSH 6.72, free T4 low 0.63. Synthroid dose increased to 175 mcg daily. ? ? Continue with Synthroid if we can get an IV on him I would recommend a TSH as his last one was in 2021 and was 14 4. GERD ? Stable ? Continue with PPI DVT: Ambulation Microbiology Past 72 Hours 02/11/23 12:20 Nasal Secretion SARS-CoV-2 Antigen (Rapid) - Final Laboratory Results 02/12/23 05:56: Sodium 135 L, Potassium 4.1, Chloride 106, Carbon Dioxide 26.0, Anion Gap 3 L, BUN 17, Creatinine 0.82, Estim Creat Clear Calc 132.63, Est GFR (MDRD) Af Amer 133, Est GFR (MDRD) Non-Af 110, BUN/Creatinine Ratio 20.8 H, Glucose 100, Calcium 8.1 L, Phosphorus 2.8, Magnesium 2.3, Total Bilirubin 0.20, Direct Bilirubin 0.07, GGT 51, AST 38 H, ALT 59, Alkaline Phosphatase 101, Total Protein 6.6, Albumin 2.8 L, Globulin 3.8 Charges/Coding Visit Charges Inpatient E&M: 79563 Subs Hosp L2
[2023-02-12] MEDS: Lactated Ringers 1,000 ML 100 ML IV (10:43)
[2023-02-12] MEDS: Ferrous Sulfate 325 MG Tablet PO (11:44)
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
--- NOTE | 2023-02-12 20:34 | NURSING ---
Notified by the wind operations supervisor that pt wants to leave. This RN went in to the room and pt states he is leaving. Pt is a & o x 3. This RN asks the pt if he is sure about leaving. Pt states yes. States he just can't stay. This RN reminds the pt about the resources that have been set up for him and that he will need to stay until Tuesday if he is wanting to follow thru with the plans that have been set up for him. Pt states he doesn't care and he is leaving tonight. Pt signed AMA papers. compliance coordinator to notify Dr, Manager Games, and security to escort pt out of the building.
--- NOTE | 2023-02-13 07:27 | PCM.DC.SUM ---
Providers Date of Admission: 02/10/23 Date of Discharge: 02/12/23 Primary Care Physician: No Primary Care Phys Reason For Visit: etoh intox Diagnosis Discharge Diagnosis (1) Alcohol intoxication: Status: Acute Code(s): F10.929 - Alcohol use, unspecified with intoxication, unspecified Plan 1. Acute alcohol withdrawal syndrome with history of chronic alcohol use disorder, dependence and tolerance with history of anxiety and depression: Patient was admitted after 7 hours of his alcohol drink therefore was intoxicated at the time of admission but currently having withdrawal symptoms. Last CIWA score 8. He signed AMA from ER yesterday before admission and then came back. U tox positive of cannabinoids and benzodiazepine. Serum alcohol 78. Serum lipase normal. On Lexapro. A1c 5.4. 02/12: CIWA score is 16. Patient on phenobarbital based order set along with other adjunctive medications as needed for alcohol withdrawal symptom control. CIWA monitor. Patient signed AMA last night 02/12. As per the ED physician report, he went to street and drank alcohol and police brought him back to ED. He was discharged from ED as he could not be readmitted because this was his second AMA in less than 1 month 2. Hypertension and morbid obesity, BMI 48.6 kg/m?: His blood pressure is controlled. ? BMI of 49, when he is more reasonable we will discuss lifestyle modifications ? Continue with Norvasc and lisinopril 3. Hypothyroidism: TSH 6.72, free T4 low 0.63. Synthroid dose was increased to 175 mcg daily. ? ? Continue with Synthroid if we can get an IV on him I would recommend a TSH as his last one was in 2021 and was 14 4. GERD ? Stable ? Continue with PPI DVT: Ambulation Patient signed AMA. Medications at Discharge Home Medications escitalopram oxalate 20 mg tablet (Lexapro) 20 mg PO DAILY depression 06/23/22 levothyroxine 150 mcg tablet 150 mcg PO DAILY thyroid 06/23/22 lisinopril 40 mg tablet 40 mg PO DAILY HTN 06/23/22 pantoprazole 40 mg tablet,delayed release (Protonix) 40 mg PO DAILY GERD 06/23/22 amlodipine 5 mg tablet 5 mg PO DAILY 30 days #30 tabs 08/04/22 ferrous sulfate 325 mg (65 mg iron) tablet (FeroSul) 325 mg PO 1200,1700 30 days #60 tabs 08/04/22 Physical Exam Narrative Patient was seen and examined on 02/12-day of AMA. Weight / BMI Weight Weight: 368 lb 2.751 oz Body Mass Index (BMI) 48.5 ABG / Lab / Microbiology Data Result Diagrams: 02/10/23 20:10 02/12/23 05:56 Microbiology: Microbiology 02/11/23 12:20 Nasal Secretion SARS-CoV-2 Antigen (Rapid) - Final Meaningful Use Info Meaningful Use Diagnoses (Choose all that apply): None applicable Discharge Plan Admission Admit Date/Time: 02/10/23 20:09 Primary Reason for Your Visit: etoh Attending Provider: Oswaldo Soria Primary Care Provider: Care Physician,No Primary Consulting Providers: Chencho Hoffman Discharge Orders/Prescriptions Prescriptions: No Action pantoprazole [Protonix] 40 mg Tablet,Delayed Release (Dr/Ec) 40 mg PO DAILY levothyroxine 150 mcg Tablet 150 mcg PO DAILY lisinopril 40 mg Tablet 40 mg PO DAILY escitalopram oxalate [Lexapro] 20 mg Tablet 20 mg PO DAILY amlodipine 5 mg Tablet 5 mg PO DAILY 30 Days Qty: 30 0RF ferrous sulfate [FeroSul] 325 mg (65 mg iron) Tablet 325 mg PO 1200,1700 30 Days Qty: 60 0RF Referrals / Follow Up: Care Physician,No Primary [Primary Care Provider] - Disposition Disposition (needs filled in before D/C Order can be placed): Against Medical Advice Charges/Coding Visit Charges Inpatient E&M: 17174 Disch Hosp
== END 2023-02-12 20:49 | disposition left against medical advice (07) | DRG 894 ==
LOC: ED 20:32 → MS3 20:34
PROVIDERS: Admitting Provider Family Medicine; Emergency Provider Emergency Medicine; Visit Provider Internal Medicine
DX: F10.239 Alcohol dependence with withdrawal, unspecified (principal); Z68.42 Body mass index [BMI] 45.0-49.9, adult; E03.9 Hypothyroidism, unspecified; E66.01 Morbid (severe) obesity due to excess calories; F17.210 Nicotine dependence, cigarettes, uncomplicated; I10 Essential (primary) hypertension; F12.90 Cannabis use, unspecified, uncomplicated; K21.9 Gastro-esophageal reflux disease without esophagitis; F41.0 Panic disorder [episodic paroxysmal anxiety]; Z59.00 Homelessness unspecified; Y90.3 Blood alcohol level of 60-79 mg/100 ml
CPT/HCPCS: 80048; 80053; 80076; 80307; 82077; 82977; 83036; 83690; 83735; 84100; 84436; 84439; 84443; 84480; 84481; 85025; 87811; 99285; J7120; A4216

== ENCOUNTER 2023-02-13 04:00 | Emergency (ER) | payer SELFPAY ==
[2023-02-13 04:01] VITALS: BP 115/79; PULSE 90; RESP 16; TEMP 36.5; O2SAT 90; BMI 52.4
--- NOTE | 2023-02-13 05:02 | CT_ITS ---
EXAM: CT HEAD WITHOUT INTRAVENOUS CONTRAST CLINICAL INDICATION: head injury TECHNIQUE: Multiple axial images were obtained of the head without intravenous contrast. This CT exam was performed using one or more of the following dose reduction techniques: automated exposure control, adjustment of the mA and/or kV according to patient size, and/or use of iterative reconstruction technique. This report was created using [employer] report generation technology. RADIATION DOSE: Total DLP: 1031.49 mGy-cm. COMPARISON: None. FINDINGS: BRAIN AND EXTRA-AXIAL SPACES: Unremarkable. No intra- or extra-axial hemorrhage. No evidence of acute infarct. No intracranial mass or mass effect. There is preservation of the tovar/white matter interface. Posterior fossa structures are unremarkable. Ventricles are appropriate for age. No hydrocephalus. Basal cisterns are patent. BONES/JOINTS: Unremarkable. No discrete lytic or blastic abnormalities. No linear or depressed skull fracture. SOFT TISSUES: Unremarkable. No scalp hematoma. SINUSES: Unremarkable as visualized. Clear. MASTOID AIR CELLS: Unremarkable. Clear. ORBITS: Visualized globes, extraocular muscles, optic nerves and retrobulbar fat appear unremarkable. DENTAL: Findings of dental caries are present. CT/Brain/Head without Contrast IMPRESSION: No acute findings in the head/brain; no skull fracture or acute intracranial hemorrhage. Electronically Signed: Gopi De La Cruz MD at 5:33 EDT ,
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
--- NOTE | 2023-02-13 06:45 | EDS_ITS ---
HPI History of Present Illness Chief Complaint: Other, Pain/Inj Narrative Narrative: Patient is a 42-year-old male with past medical history of alcohol intoxication and abuse. He was brought in by EMS this evening secondary to intoxication and questionable fall. The patient does not offer much history based on his intoxication. EMS reports that the patient was found by police lying on the ground outside of a store. They concerned that he had hurt himself and with this called EMS. EMS states when they arrived the patient was arousable and protecting his airway and had no signs of trauma but his glasses had fallen off his face onto the concrete and this could indicate patient fell versus simply lie down. Therefore with concern for underlying trauma he was brought in for evaluation [facility] Medical History Alcohol abuse Anxiety and depression Cannabis use disorder Hypertension Hypothyroidism Morbid obesity Home Medications escitalopram oxalate 20 mg tablet (Lexapro) 20 mg PO DAILY depression 06/23/22 [History Last Taken 06/21/22] levothyroxine 150 mcg tablet 150 mcg PO DAILY thyroid 06/23/22 [History Last Taken 06/21/22] lisinopril 40 mg tablet 40 mg PO DAILY HTN 06/23/22 [History Last Taken 06/21/22] pantoprazole 40 mg tablet,delayed release (Protonix) 40 mg PO DAILY GERD 2 [History Last Taken 06/21/22] amlodipine 5 mg tablet 5 mg PO DAILY 30 days #30 tabs 08/04/22 [Rx Last Taken Unknown] ferrous sulfate 325 mg (65 mg iron) tablet (FeroSul) 325 mg PO 1200,1700 30 days #60 tabs 08/04/22 [Rx Last Taken Unknown] Allergy/AdvReac Type Severity Reaction Status Date / Time haloperidol [From Haldol] AdvReac Other Verified 02/10/23 18:17 Family History Father Diabetes Mother CAD (coronary artery disease) Surgical History History of appendectomy Social History housing: homeless Smoking Status: Current every day smoker tobacco type: cigarettes how long ago did patient quit smoking: Reports quitting in 2016, prior to this 1 ppd since teen until quit. alcohol intake: current Previous attempts at quittin details: Reports currently 12-19 tall boys daily. substance use type: marijuana ROS ROS ED ROS Narrative Please note review of systems may be unreliable as patient is intoxicated Constitutional Constitutional ED: Denies chills or fever(s) Eyes Eyes: Denies change in vision ENT ENT ED: Denies sore throat Cardiovascular Cardiovascular: Denies chest pain Respiratory/Chest Respiratory/Chest: Denies cough or dyspnea Gastrointestinal Gastrointestinal: Denies abdominal pain, diarrhea, nausea or vomiting Genitourinary Genitourinary ED: Denies dysuria Musculoskeletal Musculoskeletal: Reports other Details: Positive left wrist pain ; Denies back pain or neck pain Integumentary Denies Abrasions or rash Neurologic Neurologic: Denies headache(s) Psychiatric Psychiatric: Denies suicidal ideation or suicidal thoughts Hematologic/Lymphatic Hematologic/Lymphatic: Denies easy bleeding or easy bruising EXAM Physical Exam Const Vital Signs: 02/13/23 04:01 02/13/23 04:06 Temperature 97.7 F L Temperature Source Temporal Pulse Rate 90 Respiratory Rate 16 Respiratory Pattern Normal Blood Pressure 115/79 Blood Pressure Mean 91 Pulse Ox 90 Oxygen Delivery Method Room Air Positive well nourished, well developed and obese General Appearance ED: well developed Nutritional Appearance: obese HEENT Reports moist mucous membranes HEENT Narrative: Normocephalic atraumatic No signs of depressed or basilar skull fracture Eyes EOMs intact bilaterally Eyes Narrative: Pupils are dilated and sluggish to respond to light with scleral injection consistent with alcohol intoxication Neck supple Neck Narrative: No bony deformity or step-off of the cervical spine no midline pain with palpation Chest Wall palpation of chest normal Chest Narrative: No bony deformity or crepitance Resp normal respiratory effort and clear to auscultation bilaterally Cardio regular rate and regular rhythm GI normal to inspection, nondistended, normoactive bowel sounds, non-tender, non- distended and no masses Auscultation: normoactive bowel sounds Palpation: soft Back/Spine Back/Spine Narrative: No bony deformity or step-off of the thoracic or lumbar spine no midline pain with palpation Extremity Extremity Narrative: Patient has mild soft tissue swelling to the dorsal aspect of the left wrist. There is no obvious bony deformity or joint effusion no ligamentous laxity. No signs of tendon injury. No pain in the anatomical snuffbox Pelvis is stable there is no shortening or external rotation of either lower extremity Neuro oriented x3 and CN's II-XII intact bilaterally Neuro Narrative: Patient is intoxicated but easily arousable with GCS of 14. No focal neurologic deficit noted Sensorium / Orientation: orientation impaired Psych Psych Narrative: Patient is intoxicated with a flat affect Skin no rashes or lesions noted Skin Narrative: No abrasions or ecchymosis noted MDM MDM MDM Narrative Medical decision making narrative: Patient presented to the ER with a depressed mental status consistent with history of alcohol intoxication. He was found on the ground and could not remember if he had fallen or simply laid down. He has no signs of head trauma but with his intoxicated status CTs of the head and cervical spine were obtained. These revealed no acute skull fracture or cervical spine injury or brain bleed. An x-ray of his left wrist was ordered as he had pain with palpation on exam and mild swelling. However the patient refused the x-ray. As he has full active range of motion with no signs of ligamentous or tendon injury and no obvious bony deformity I did allow him to refuse at this time. As the patient is not homicidal or suicidal and has a known history of alcohol abuse and intoxication I do not feel there is need for further work-up as signs of underlying trauma have been ruled out with CT scans and physical exam. The lucille amdrid was watched in the ER until he was clinically sober and following this he was discharged. Please note differential includes skull fracture subdural or epidural hematoma cervical spine injury or concussion History & Record Review Discussion w/independent historian: EMS personnel and Patient Radiography Diagnostic Testing: Clinical Impression(s) from Imaging Studies Brain CT 02/13/23 05:02 IMPRESSION: No acute findings in the head/brain; no skull fracture or acute intracranial hemorrhage. Electronically Signed: Gopi De La Cruz MD at 5:33 EDT , Cervical Spine CT 02/13/23 05:02 IMPRESSION: Congenital fusion of C4 with C5. No acute findings in the cervical spine. Electronically Signed: Gopi De La Cruz MD at 5:39 EDT , Discharge Plan Triage Chief Complaint: Other, Pain/Inj ED Provider: Malvin Martins Dx/Rx/DC Orders Clinical Impression: Alcohol abuse, Alcohol intoxication, Accidental fall Instructions: ED Alcohol Abuse Prescriptions: No Action pantoprazole [Protonix] 40 mg Tablet,Delayed Release (Dr/Ec) 40 mg PO DAILY levothyroxine 150 mcg Tablet 150 mcg PO DAILY lisinopril 40 mg Tablet 40 mg PO DAILY escitalopram oxalate [Lexapro] 20 mg Tablet 20 mg PO DAILY amlodipine 5 mg Tablet 5 mg PO DAILY 30 Days Qty: 30 0RF ferrous sulfate [FeroSul] 325 mg (65 mg iron) Tablet 325 mg PO 1200,1700 30 Days Qty: 60 0RF Primary Care Provider: Care Physician,No Primary Referrals: Care Physician,No Primary [Primary Care Provider] - Activity Restrictions/Additional Instructions: Please follow-up with 180 and or rehab secondary to your alcohol abuse Disposition Disposition: Home, Self Care
[2023-02-13] MEDS: Ibuprofen 600 MG Tablet PO (07:04)
== END 2023-02-13 07:13 | disposition home or self-care (01) ==
PROVIDERS: Emergency Provider Emergency Medicine; Visit Provider Emergency Medicine
DX: F10.129 Alcohol abuse with intoxication, unspecified (principal); Z59.00 Homelessness unspecified; F17.210 Nicotine dependence, cigarettes, uncomplicated; I10 Essential (primary) hypertension; W19.XXXA Unspecified fall, initial encounter; Y92.512 Supermarket, store or market as the place of occurrence of the external cause; F41.8 Other specified anxiety disorders; Z79.899 Other long term (current) drug therapy; E03.9 Hypothyroidism, unspecified; Z90.49 Acquired absence of other specified parts of digestive tract
CPT/HCPCS: 70450; 72125; 99284

== ENCOUNTER 2023-03-16 16:04 | Emergency (ER) | payer SELFPAY ==
--- NOTE | 2023-03-16 16:17 | EX.ED.SAOD ---
HPI History of Present Illness Chief Complaint: ETOH Intox Detail of Chief Complaint: Requesting detox from alcohol Informant: patient Narrative Narrative: Patient presents to the emergency department requesting detox from alcohol. Patient states that he just got discharged from [facility]. He last went through detox about a week ago in [place]. Patient normally drinks malt liquor and drinks about 20 beers per day. Last drink was prior to arrival in the emergency department. Patient also has history of hypothyroidism and hypertension. Patient has psychiatric history and suicidal tendencies from what he tells me but does not currently feel suicidal. Prior similar symptoms: Yes PFSH PFS Medical History Alcohol abuse Anxiety and depression Cannabis use disorder Hypertension Hypothyroidism Morbid obesity Home Medications escitalopram oxalate 20 mg tablet (Lexapro) 20 mg PO DAILY depression 06/23/22 [History Last Taken 06/21/22] levothyroxine 150 mcg tablet 150 mcg PO DAILY thyroid 06/23/22 [History Last Taken 06/21/22] lisinopril 40 mg tablet 40 mg PO DAILY HTN 06/23/22 [History Last Taken 06/21/22] pantoprazole 40 mg tablet,delayed release (Protonix) 40 mg PO DAILY GERD 06/23/22 [History Last Taken 06/21/22] amlodipine 5 mg tablet 5 mg PO DAILY 30 days #30 tabs 08/04/22 [Rx Last Taken Unknown] ferrous sulfate 325 mg (65 mg iron) tablet (FeroSul) 325 mg PO 1200,1700 30 days #60 tabs 08/04/22 [Rx Last Taken Unknown] Allergy/AdvReac Type Severity Reaction Status Date / Time haloperidol [From Haldol] AdvReac Other Verified 02/10/23 18:17 Family History Father Diabetes Mother CAD (coronary artery disease) Surgical History History of appendectomy Social History housing: homeless Smoking Status: Current every day smoker tobacco type: cigarettes how long ago did patient quit smoking: Reports quitting in 2016, prior to this 1 ppd since teen until quit. alcohol intake: current Previous attempts at quittin details: Reports currently 12-19 tall boys daily. substance use type: marijuana ROS ROS ED Review of Systems ROS Unobtainable: other Constitutional Constitutional ED: Reports lethargy; Denies chills, fever(s), sweats or weight loss Eyes Eyes: Denies blurry vision, change in vision or diplopia ENT ENT ED: Denies rhinorrhea or sore throat Cardiovascular Cardiovascular: Reports chest pain and racing heartbeat; Denies orthopnea Respiratory/Chest Respiratory/Chest: Reports dyspnea and dyspnea on exertion; Denies cough, orthopnea or sputum Gastrointestinal Gastrointestinal: Denies abdominal pain, diarrhea, nausea or vomiting Genitourinary Genitourinary ED: Denies dysuria, hematuria or urinary frequency Musculoskeletal Musculoskeletal: Denies arthralgias, back pain, myalgias or neck pain Integumentary Denies abscess, Abrasions or rash Neurologic Neurologic: Denies headache(s) or weakness Psychiatric Psychiatric: Denies anxiety, depression or suicidal thoughts Endocrine Endocrinology: Denies polydipsia, polyphagia or polyuria Hematologic/Lymphatic Hematologic/Lymphatic: Denies easy bleeding, easy bruising or lymphadenopathy Allergic/Immunologic Allergic/Immunologic ED: Denies mouth swelling, tongue swelling or urticaria EXAM Physical Exam Narrative Exam Narrative: Patient appears obviously intoxicated. Speech slightly slurred and slowed. No external evidence of trauma. Const Vital Signs: 03/16/23 16:37 Temperature 98.8 F Temperature Source Temporal Pulse Rate 124 H Respiratory Rate 18 Blood Pressure 151/116 H Blood Pressure Mean 127 Pulse Ox 98 Oxygen Delivery Method Room Air Positive well nourished and well developed General Appearance ED: well developed and NAD HEENT Reports TM's clear and moist mucous membranes normocephalic and atraumatic; Negative for trauma or tenderness Tympanic Membrane ED: Yes TM's clear Eyes PERRL and EOMs intact bilaterally General Eye ED: Negative for pale conjunctiva or scleral icterus Neck no lymphadenopathy, supple and no JVD General: Negative for tenderness Chest Wall inspection of chest normal and palpation of chest normal Chest: Negative for tenderness Resp normal respiratory effort and clear to auscultation bilaterally Effort and Inspection: Negative for respiratory distress or pain with movement Auscultation: Negative for rhonchi, wheezes or diminished lung sounds Cardio regular rate, regular rhythm, S1 normal heart sound, S2 normal heart sound and no murmurs Peripheral Pulses: pulses 2+ throughout GI normal to inspection, nondistended, normoactive bowel sounds, soft to palpation, non-tender, non-distended and no masses Back/Spine no CVA tenderness and no thoracic nor lumbar tenderness Extremity normal to inspection General Extremety ED: Negative for edema General Extremity: Negative for edema Neuro oriented x3, CN's II-XII intact bilaterally, no sensory deficits noted and gait normal Sensorium / Orientation: awake, alert, oriented to person, oriented to place and oriented to time Motor Exam: strength 5/5 throughout and strength abnormal Psych mental status grossly normal Skin no rashes or lesions noted and no wounds MDM MDM MDM Narrative Medical decision making narrative: Patient had not been established. CBC with differential obtained showed a white count 7.9 with hemoglobin 11.8 and hematocrit 42. Platelets were 334. Tox screen positive for barbiturates as well as THC. Alcohol level pending and LFTs pending. Case discussed with hospitalist to evaluate patient for admission. Patient decided before his alcohol level returned that he did not want to be admitted and go through detox he wants to go home he wants discharged. He was able to walk to the bathroom and back without difficulty and he is ANO x3 and I feel he has capacity to make this decision. Patient was discharged and he did not wait for any type of paperwork. electronic warfare officer also was informed who is here and who brought him in initially. Lab Data Labs: Laboratory Results - last 24 hr 03/16/23 03/16/23 16:45 17:00 WBC 7.9 RBC 5.28 Hgb 11.8 L Hct 41.9 MCV 79.4 L MCH 22.3 L MCHC 28.2 L RDW Std Deviation 51.9 H RDW Coeff of Nasima 19.1 H Plt Count 334 MPV 9.7 Immature Gran % (Auto) 0.500 Neut % (Auto) 68.1 Lymph % (Auto) 21.0 Cuming % (Auto) 6.0 Eos % (Auto) 3.4 Baso % (Auto) 1.0 Absolute Neuts (auto) 5.3 Absolute Lymphs (auto) 1.65 Nucleated RBC % 0.3 Urine Opiates Screen NEGATIVE Urine Methadone Screen NEGATIVE Ur Barbiturates Screen POSITIVE H Ur Phencyclidine Scrn NEGATIVE Ur Amphetamines Screen NEGATIVE MDMA (Ecstasy) Screen NEGATIVE U Benzodiazepines Scrn NEGATIVE Urine Cocaine Screen NEGATIVE U Cannabinoids Screen POSITIVE H Ur Drug Screen Comment Discharge Plan Triage Chief Complaint: ETOH Intox ED Provider: Mariano Braswell Dx/Rx/DC Orders Clinical Impression: Alcohol abuse, Alcohol dependence, History of depression, Admitted to alcohol detoxification center Instructions: ED Alcohol Intoxication, ED Alcohol Abuse Prescriptions: No Action pantoprazole [Protonix] 40 mg Tablet,Delayed Release (Dr/Ec) 40 mg PO DAILY levothyroxine 150 mcg Tablet 150 mcg PO DAILY lisinopril 40 mg Tablet 40 mg PO DAILY escitalopram oxalate [Lexapro] 20 mg Tablet 20 mg PO DAILY amlodipine 5 mg Tablet 5 mg PO DAILY 30 Days Qty: 30 0RF ferrous sulfate [FeroSul] 325 mg (65 mg iron) Tablet 325 mg PO 1200,1700 30 Days Qty: 60 0RF Primary Care Provider: Care Physician,No Primary Referrals: Emmanuel Cheung MD [Med Staff - [facility]] - 3-5 Days Care Physician,No Primary [Primary Care Provider] - Disposition Disposition: Home, Self Care Discharge Date/Time: 03/16/23 17:30
[2023-03-16 16:37] VITALS: BP 151/116; PULSE 124; RESP 18; TEMP 37.1; O2SAT 98
[2023-03-16] MEDS: 0.9% Normal Saline 1,000 ML 150 ML IV (17:12)
[2023-03-16 17:15] LABS: Amphetamine Urine VISTA NEGATIVE (<1000 ng/mL); Barbiturate Urine VISTA POSITIVE (< 200 ng/mL); Benzodiazepine Urine VISTA NEGATIVE (< 200 ng/mL); Cocaine Urine VISTA NEGATIVE (< 300 ng/mL); Ecstacy Urine VISTA NEGATIVE (< 500 ng/mL); Methadone Urine VISTA NEGATIVE (< 300 ng/mL); PCP Urine VISTA NEGATIVE (< 25 ng/mL); THC Urine VISTA POSITIVE (< 50 ng/mL); Vista UDS pH Range 6
[2023-03-16 17:16] LABS: Absolute Lymphocyte Count 1.65 X10^3/uL (0.83-4.51); Absolute Neutrophil Count 5.3 X10^3/uL (2.0-7.7); Basophil# 0.08 X10^3/uL; Eosinophil# 0.27 X10^3/uL; Eosinophils% 3.4 % (0-5); Hematocrit 41.9 % (40-54); Hemoglobin 11.8 g/dL (13.0-16.5); Lymphocyte # 1.65 X10^3/ul (0.83-4.51); Mean Corp Hgb Conc 28.2 g/dL (32-36); Mean Corpuscular Hgb 22.3 pg (27.0-32.0); Mean Corpuscular Volume 79.4 fL (80-94); Mean Platelet Vol. 9.7 fl (6.2-12.0); Monocyte# 0.47 X10^3/uL; NRBC Flagged by Analyzer 0.3 % (0-5); Neutrophil # 5.34 X10^3/uL (2.7-7.7); Neutrophil % 68.1 % (47-70); Platelet Count 334 K/mm3 (150-450); RBC Distribution Width CV 19.1 % (11.6-14.6); RBC Distribution Width SD 51.9 fl (35.1-43.9); Red Blood Count 5.28 M/mm3 (4.6-6.2); White Blood Count 7.9 K/mm3 (4.4-11.0)
[2023-03-16 17:18] VITALS: BMI 47.0
--- NOTE | 2023-03-16 17:32 | ED.RN ---
PT STATES HE IS LEAVING, STAFF AND DR RICCI ENCOURAGED HIM TO STAY. PT REFUSES TO STAY. PT AMBULATED FROM ED
[2023-03-16 17:35] LABS: ALB/GLOB Ratio 0.8 RATIO (0.9-2.4); AST(SGOT) 30 U/L (15-37); Alanine Aminotransfer ALT/SGPT 30 U/L (16-61); Albumin, Serum 3.6 g/dL (3.2-5.0); Alkaline Phosphatase 113 U/L (45-117); Anion Gap 6 (5-15); BUN 8 mg/dL (7-18); BUN/Creat Ratio 9.1 RATIO (10-20); Chloride 107 mmol/L (98-107); Creatinine, Serum 0.88 mg/dL (0.70-1.30); EST Glomerular Filtration Rate 101 mL/min (>60); Est Glom Filt Rate - Afr Amer 122 mL/min (>60); Estimated Creatinine Clearance 127.14 ml/min; Globulin 4.7 g/dL (2.2-4.2); Glucose 83 mg/dL (74-106); Potassium 3.8 mmol/L (3.5-5.1); Protein, Total 8.3 g/dL (6.4-8.2); Sodium Level 137 mmol/L (136-145)
[2023-03-16 18:52] LABS: Platelet Count 333 K/mm3 (150-450); RET-HE 22.4 pg (30-35); Reticulocyte Count 2.31 % (0.5-1.5)
[2023-03-16 19:02] LABS: Ferritin 18 ng/mL (26-388); Iron 22 ug/dL (65-175); Iron Binding Capacity,Total 481 ug/dL (250-450); PERCENT IRON SATURATION 4.6 % (15.0-55.0)
== END 2023-03-16 17:30 | disposition home or self-care (01) ==
PROVIDERS: Internal Medicine; Emergency Provider Emergency Medicine; Visit Provider Emergency Medicine
DX: F32.A Depression, unspecified (principal); F10.229 Alcohol dependence with intoxication, unspecified; Z59.00 Homelessness unspecified; I10 Essential (primary) hypertension; F17.210 Nicotine dependence, cigarettes, uncomplicated; F41.9 Anxiety disorder, unspecified; Z79.899 Other long term (current) drug therapy; E03.9 Hypothyroidism, unspecified
CPT/HCPCS: 80053; 80307; 82077; 82728; 83540; 83550; 85025; 85045; J7030; A4216

== ENCOUNTER 2023-03-17 18:47 | Inpatient (IN) | payer SELFPAY ==
[2023-03-17 18:48] VITALS: BP 136/100; PULSE 116; RESP 20; TEMP 37.1; O2SAT 97; BMI 46.5
[2023-03-17] MEDS: 0.9% Normal Saline 1,000 ML 1000 ML IV (19:36)
[2023-03-17 20:00] VITALS: RESP 15
--- NOTE | 2023-03-17 20:22 | EDS_ITS ---
HPI HPI - Psych History of Present Illness Chief Complaint: Suicidal Narrative Narrative: 42-year-old male with history of alcohol dependence presenting intoxicated with suicidal and to shoot himself with a gun. He does not own one but he has access because he states his family is part of [place]. Patient states that he is not able to get his drinking under control long-term. He had intermittent times of sobriety. Patient's last drink was a couple hours ago. He reports that he drinks about 25 malt liquors a day. Patient reports he has history of hypertension and hypothyroidism as well. Patient states he does withdrawal and does have withdrawal seizures. [facility] Medical History Alcohol abuse Alcohol withdrawal Anxiety and depression Cannabis use disorder Hypertension Hypothyroidism Morbid obesity Home Medications escitalopram oxalate 20 mg tablet (Lexapro) 20 mg PO DAILY depression 06/23/22 [History Last Taken 06/21/22] levothyroxine 150 mcg tablet 150 mcg PO DAILY thyroid 06/23/22 [History Last Taken 06/21/22] lisinopril 40 mg tablet 40 mg PO DAILY HTN 06/23/22 [History Last Taken 06/21/22] pantoprazole 40 mg tablet,delayed release (Protonix) 40 mg PO DAILY GERD 06/23/22 [History Last Taken 06/21/22] amlodipine 5 mg tablet 5 mg PO DAILY 30 days #30 tabs 08/04/22 [Rx Last Taken Unknown] ferrous sulfate 325 mg (65 mg iron) tablet (FeroSul) 325 mg PO 1200,1700 30 days #60 tabs 08/04/22 [Rx Last Taken Unknown] Allergy/AdvReac Type Severity Reaction Status Date / Time haloperidol [From Haldol] AdvReac Other Verified 03/17/23 18:50 Family History Father Diabetes Mother CAD (coronary artery disease) Surgical History History of appendectomy Social History housing: homeless Smoking Status: Current every day smoker tobacco type: cigarettes how long ago did patient quit smoking: Reports quitting in 2016, prior to this 1 ppd since teen until quit. alcohol intake: current Previous attempts at quittin details: Reports currently 12-19 tall boys daily. substance use type: marijuana ROS ROS ED Constitutional Constitutional ED: Denies chills or fever(s) Eyes Eyes: Denies change in vision or diplopia ENT ENT ED: Denies rhinorrhea or sore throat Cardiovascular Cardiovascular: Denies chest pain or palpitations Respiratory/Chest Respiratory/Chest: Denies cough or dyspnea Gastrointestinal Gastrointestinal: Denies abdominal pain, nausea or vomiting Genitourinary Genitourinary ED: Denies dysuria or hematuria Musculoskeletal Musculoskeletal: Denies arthralgias or back pain Integumentary Denies abscess Neurologic Neurologic: Denies headache(s) or paresthesias Psychiatric Psychiatric: Reports suicidal ideation and suicidal thoughts EXAM Physical Exam Const Vital Signs: 03/17/23 18:48 03/17/23 20:00 03/17/23 21:00 Temperature 98.7 F Temperature Source Temporal Pulse Rate 116 H Respiratory Rate 20 H 15 15 Blood Pressure 136/100 H Blood Pressure Mean 112 Pulse Ox 97 Oxygen Delivery Method Room Air Room Air Room Air 03/17/23 22:48 03/18/23 01:00 Temperature Temperature Source Pulse Rate Respiratory Rate 16 15 Blood Pressure Blood Pressure Mean Pulse Ox Oxygen Delivery Method Room Air Positive well nourished, obese and unkempt General Appearance ED: unkempt and NAD; Negative for pallor Nutritional Appearance: obese HEENT Reports moist mucous membranes Eyes PERRL and EOMs intact bilaterally General Eye ED: Negative for pale conjunctiva or scleral icterus Resp normal respiratory effort and clear to auscultation bilaterally Cardio Rate: tachycardic Rhythm: regular rhythm GI non-tender Extremity normal to inspection Neuro oriented x3 and CN's II-XII intact bilaterally Sensorium / Orientation: alert Motor Exam: strength 5/5 throughout Psych denies homicidal ideation Appearance: unkempt Attitude: calm Activity / Motor Behavior: appropriate eye contact Speech: slurred Mood & Affect: sad Thought Content: suicidality, No homicidality, No hallucination(s) and No derealization Attention / Concentration: attention grossly intact Memory / Cognition: memory grossly intact Insight: poor Judgement: poor Skin General Skin Exam: Negative for jaundice or pallor MDM MDM MDM Narrative Medical decision making narrative: Patient presenting with oxidated with these suicidal. He is. He states if he cannot get a hold of his alcoholism that he is going to kill himself. He used his left hand to show me how he would shoot himself through his head. Patient will be medically screened. I will obtain a CBC, CMP, drug abuse screen, EtOH level, rapid COVID. Patient was given a liter normal saline because he is tachycardic. Is not currently withdrawing. We will monitor the patient he was given a milligram of Ativan p.o. Basic lab work was obtained. So far BMP Unremarkable. Urine drug screen positive for benzodiazepines, barbiturates, cannabinoids. Appears to have is here recently for EtOH detox. This point he was not suicidal. EtOH today 144. Patient states he still feeling little anxious he was given another milligram of Ativan. I am awaiting a CBC and second EtOH level. Apparently nursing staff is having trouble getting this and are trying to have lab come and get get this. Patient will need to be medically evaluated by crisis given his suicidal thoughts and his alcoholism. We will have to wait till he is sober is alcohol less than 100. Impression: 1. EtOH intoxication 2. Request for EtOH detox 3. Suicidal thoughts Lab Data Attestation: I reviewed the patient's lab results. Labs: Laboratory Results - last 24 hr 03/17/23 03/17/23 03/17/23 20:32 20:32 20:55 Sodium 141 Potassium 4.0 Chloride 108 H Carbon Dioxide 20.0 L Anion Gap 13 BUN 8 Creatinine 0.86 Estim Creat Clear Calc 130.10 Est GFR (MDRD) Af Amer 126 Est GFR (MDRD) Non-Af 104 BUN/Creatinine Ratio 9.3 L Glucose 77 Calcium 8.7 Urine Opiates Screen NEGATIVE Urine Methadone Screen NEGATIVE Ur Barbiturates Screen POSITIVE H Ur Phencyclidine Scrn NEGATIVE Ur Amphetamines Screen NEGATIVE MDMA (Ecstasy) Screen NEGATIVE U Benzodiazepines Scrn POSITIVE H Urine Cocaine Screen NEGATIVE U Cannabinoids Screen POSITIVE H Ur Drug Screen Comment Ethyl Alcohol 144.0 Discharge Plan Triage Chief Complaint: Suicidal ED Provider: Pilo Mosley Dx/Rx/DC Orders Prescriptions: No Action pantoprazole [Protonix] 40 mg Tablet,Delayed Release (Dr/Ec) 40 mg PO DAILY levothyroxine 150 mcg Tablet 150 mcg PO DAILY lisinopril 40 mg Tablet 40 mg PO DAILY escitalopram oxalate [Lexapro] 20 mg Tablet 20 mg PO DAILY amlodipine 5 mg Tablet 5 mg PO DAILY 30 Days Qty: 30 0RF ferrous sulfate [FeroSul] 325 mg (65 mg iron) Tablet 325 mg PO 1200,1700 30 Days Qty: 60 0RF Primary Care Provider: Care Physician,No Primary Referrals: Care Physician,No Primary [Primary Care Provider] -
[2023-03-17 21:00] VITALS: RESP 15
[2023-03-17 21:22] LABS: BUN 8 mg/dL (7-18); Glucose 77 mg/dL (74-106)
[2023-03-17 21:23] LABS: Anion Gap 13 (5-15); BUN/Creat Ratio 9.3 RATIO (10-20); Calcium,Total 8.7 mg/dL (8.5-10.1); Chloride 108 mmol/L (98-107); Creatinine, Serum 0.86 mg/dL (0.70-1.30); EST Glomerular Filtration Rate 104 mL/min (>60); Est Glom Filt Rate - Afr Amer 126 mL/min (>60); Sodium Level 141 mmol/L (136-145)
[2023-03-17 21:28] LABS: Amphetamine Urine VISTA NEGATIVE (<1000 ng/mL); Barbiturate Urine VISTA POSITIVE (< 200 ng/mL); Benzodiazepine Urine VISTA POSITIVE (< 200 ng/mL); Cocaine Urine VISTA NEGATIVE (< 300 ng/mL); Ecstacy Urine VISTA NEGATIVE (< 500 ng/mL); Methadone Urine VISTA NEGATIVE (< 300 ng/mL); PCP Urine VISTA NEGATIVE (< 25 ng/mL); THC Urine VISTA POSITIVE (< 50 ng/mL); Vista UDS pH Range 6
[2023-03-17 22:48] VITALS: RESP 16
[2023-03-18] VITALS (10 sets, daily range): BP systolic 134–162; BP diastolic 68–102; PULSE 70–103; RESP 15–20; TEMP 36.6–36.8; O2SAT 94–100; BMI 45.8
[2023-03-18] MEDS: LORazepam 1 MG Tablet PO (00:52)
[2023-03-18] MEDS: Mag Hydrox/Al Hydrox/Simeth 30 ML UDC PO (05:58)
[2023-03-18] MEDS: LORazepam 1 MG Tablet 2 MG PO ×2 (07:02→12:18)
[2023-03-18] MEDS: Phenobarbital 32.4 MG Tablet PO ×4 (07:02→22:01)
--- NOTE | 2023-03-18 08:39 | EKG12_ITS ---
Test Reason : MEDICAL CLEARANCE Blood Pressure : / mmHG Vent. Rate : 098 BPM Atrial Rate : 098 BPM P-R Int : 144 ms QRS Dur : 070 ms QT Int : 344 ms P-R-T Axes : 032 028 039 degrees QTc Int : 439 ms Normal sinus rhythm Normal ECG Confirmed by IDA WILKINS, ASHLEY ([id number]), supervising film or videotape editor ILIA MERCADO ([id number]) on 03/21/2023 11:28:16 AM Referred By: Confirmed By:CHEMO PRIETO MD
[2023-03-18 09:06] LABS: Bacteria 0 SEEN /hpf (None Seen); Color, Urine Yellow (Yellow); Glucose, Dipstick Normal (Normal); Ketone-Dipstick Negative (Negative); Leukocyte Esterase-Dipstick Negative /ul (Negative); Mucous, Urine 0 SEEN /hpf (<or=2+); Nitrite-Dipstick Negative (Negative); Occult Blood-Urine Negative /ul (Negative); Protein-Dipstick Negative (Negative); Red Blood Cells-Urine 0 SEEN /hpf (0-5); Specific Gravity, Urine 1.005 (1.002-1.030); Squamous Epithelial Cells - UA 0 SEEN /hpf (0-5); Urine Bilirubin Dipstick Negative (Negative); Urine Clarity Clear (Clear); Urine Urobilinogen Normal (Normal); White Blood Cells 0 SEEN /hpf (0-5)
[2023-03-18 09:23] LABS: Absolute Neutrophil Count 2.6 X10^3/uL (2.0-7.7); Basophil# 0.06 X10^3/uL; Basophil% 1.2 % (0-1); Eosinophil# 0.53 X10^3/uL; Hematocrit 37.8 % (40-54); Hemoglobin 10.8 g/dL (13.0-16.5); Lymphocyte % 24.9 % (19-41); Mean Corp Hgb Conc 28.6 g/dL (32-36); Mean Corpuscular Volume 77.1 fL (80-94); Mean Platelet Vol. 9.1 fl (6.2-12.0); Monocyte# 0.37 X10^3/uL; Monocyte% 7.7 % (0-10); NRBC Flagged by Analyzer 0 % (0-5); Neutrophil # 2.64 X10^3/uL (2.7-7.7); Neutrophil % 54.8 % (47-70); Platelet Count 265 K/mm3 (150-450); RBC Distribution Width CV 18.7 % (11.6-14.6); RBC Distribution Width SD 50.2 fl (35.1-43.9); White Blood Count 4.8 K/mm3 (4.4-11.0)
[2023-03-18 09:40] LABS: AST(SGOT) 23 U/L (15-37); Alanine Aminotransfer ALT/SGPT 28 U/L (16-61); Albumin, Serum 3.3 g/dL (3.2-5.0); Alkaline Phosphatase 107 U/L (45-117); Bilirubin, Direct 0.13 mg/dL (0.00-0.30); Globulin 4.1 g/dL (2.2-4.2); Protein, Total 7.4 g/dL (6.4-8.2)
--- NOTE | 2023-03-18 10:03 | ED.RN ---
THIS RN TALKED TO [facility], PER [facility] REQUESTING PT TO HAVE CIWA AT REGULAR INTERVALS AND FOR THE SCORE TO BE LOW OR 0 FOR 24 HOURS OF OBSERVATION. PT LEGALLY SOBER OF 229903/17/2023. [facility] TO FOLLOW UP.
--- NOTE | 2023-03-18 11:28 | CM.ED ---
Social Work Note JENNIFER met with front desk admin Flower to review patient's current discharge schmidt. Flower explained the patient has a referral to [facility] due to no insurance, however, due to that facility not having a duel diagnosis program, they are requiring the patient detox before they will accept. Flower inquired about patient's detox options due to lack of follow through with previous [facility] admissions. JENNIFER attempted to contact Karen, addictions therapist, but was unable as she is out of the office. JENNIFER spoke with Hospital Nursing Project Coordinator who reports patient can detox at [facility] but SW should contact [facility] to determine if he is eligible for R[facility]. JENNIFER spoke with treatment navigator who reports patient can not participate in [facility] due to lack of follow through during previous admissions. JENNIFER updated front desk admin, supervisor blood Conner and MD Bailey patient can be admitted for detox with [facility] but can not participate in [facility]. JENNIFER met with patient and introduced herself and role as [facility] Interventional Technologist. Patient lying in hospital bed but agreeable to speak with JENNIFER. JENNIFER reviewed discharge plan, explaining due to patient having no insurance he was referred to [facility] for psychiatric care and [facility] is requesting he detox before they admit him due to [facility] being unable to assist with detox. JENNIFER explained patient will detox with assistance from [facility] and wouldn't be participating in R[facility]. Patient reports an understanding and is in agreement with plan. SW left a VM for [facility] requesting a return phone call to provide an update regarding discharge plan for patient. Plan: detox (CIWA AT REGULAR INTERVALS AND FOR THE SCORE TO BE LOW OR 0 FOR 24 HOURS OF OBSERVATION), then psych placement to [facility] VALERIE Quick
[2023-03-18] MEDS: Ondansetron 8 MG Tablet 4 MG PO (12:10)
--- NOTE | 2023-03-18 13:00 | CM.ED ---
Addendum entered by Delia August 03/18/23 15:20: Julia updated SW, [facility] is aware patient will be in detox. [facility] requesting reevaluation when patient completes detox to ensure the patient still meets criteria for psychiatric hospitalization. Plan: detox, will need reeval for psych placement VALERIE Quick Original Note: Social Work Note JENNIFER spoke with Julia, social worker at [facility], to provide an update regarding patient, explaining he will be admitted for detox until he is ready for placement. JENNIFER inquired if patient has been accepted to [facility] or would need a new referral to [facility] when ready. Julia to contact [facility] to inquire and will update JENNIFER when able. VALERIE Quick
--- NOTE | 2023-03-18 13:33 | NURSING ---
Jul 2012- [facility] - sweat box attendant to the side of the throat lost a lot of blood unsure if had a blood transfusioin
[2023-03-18] MEDS: Gabapentin 300 MG Capsule PO (14:12)
[2023-03-18] MEDS: hydrOXYzine PAM 25 MG Capsule 50 MG PO (14:13)
--- NOTE | 2023-03-18 17:51 | HP.PCM.HOS_ITS ---
HPI - General General Date of Admission: 03/18/23 Date of Service: 03/18/23 Chief Complaint: Alcohol withdrawal, suicidal ideation HPI Narrative CHEN KIRBY, is a 42 M who presents to the emergency room at [facility] on 03/17/2023 after being brought in by the police, patient was intoxicated and stating he wanted to kill himself, he stated he wanted to shoot himself but did not have a gun but he told authorities that he had access to firearms through friends. Patient has been here many times at this hospital for alcohol detox and has signed out AMA multiple times. The rehab program here will not except the patient any longer due to his frequent AMA encounters. Toxicology in the emergency room was positive for barbiturates, benzodiazepines, and cannabinoids, patient's blood alcohol level was 144. Crisis saw the patient in the emergency room, felt that the patient should be transferred to a psychiatric facility, unfortunately the psychiatric facility will take the patient unless he has at least 24 hours of CIWA scores charted. I was contacted by the emergency room on 03/18/2023 to admit the patient, he will be admitted to [facility] and placed on phenobarb taper, he will have a sitter continuously due to suicide precautions. [facility] Medical History Alcohol abuse Alcohol withdrawal Anxiety and depression Cannabis use disorder Hypertension Hypothyroidism Morbid obesity Home Medications escitalopram oxalate 20 mg tablet (Lexapro) 20 mg PO DAILY depression 06/23/22 [History Last Taken 06/21/22] levothyroxine 150 mcg tablet 150 mcg PO DAILY thyroid 06/23/22 [History Last Taken 06/21/22] lisinopril 40 mg tablet 40 mg PO DAILY HTN 06/23/22 [History Last Taken 06/21/22] pantoprazole 40 mg tablet,delayed release (Protonix) 40 mg PO DAILY GERD 06/23/22 [History Last Taken 06/21/22] amlodipine 5 mg tablet 5 mg PO DAILY 30 days #30 tabs 08/04/22 [Rx Last Taken Unknown] ferrous sulfate 325 mg (65 mg iron) tablet (FeroSul) 325 mg PO DAILY 03/18/23 [History Last Taken Unknown] Allergy/AdvReac Type Severity Reaction Status Date / Time haloperidol [From Haldol] AdvReac Other Verified 03/17/23 18:50 Family History Father Diabetes Mother CAD (coronary artery disease) Surgical History History of appendectomy Social History housing: homeless Smoking Status: Former smoker how long ago did patient quit smoking: Reports quitting in 2016, prior to this 1 ppd since teen until quit. alcohol intake: current Previous attempts at quittin details: Reports currently 12-19 tall boys daily. substance use type: marijuana ROS Constitutional Constitutional: Denies anorexia, change in weight, chills, fatigue, fever(s), night sweats or weakness Eyes Eyes: Denies blurry vision, change in vision, discharge from eye(s) or eye pain Cardiovascular Cardiovascular: Denies chest pain, claudication, dyspnea on exertion, edema, lightheadedness, orthopnea or palpitations Respiratory/Chest Respiratory/Chest: Denies cough, hemoptysis, shortness of breath at rest or shortness of breath with exertion Gastrointestinal Gastrointestinal: Denies abdominal pain, constipation, diarrhea, hematemesis, hematochezia, melena, nausea or vomiting Genitourinary Genitourinary: Denies difficulty urinating, dysuria, hematuria, nocturia, urinary frequency, urinary hesitancy, urinary incontinence or urinary urgency Musculoskeletal Musculoskeletal: Denies back pain, joint pain, joint stiffness, joint swelling, myalgias or neck pain Neurologic Neurologic: Denies abnormal gait, abnormal speech, confusion, disequilibrium, dizziness, focal weakness, headache(s), loss of vision, numbness, other visual disturbances, paresthesias, syncope or tingling Psychiatric Psychiatric: Reports anxiety, depression and suicidal ideation; Denies cognitive impairment, irritability or mood swings Endocrine Endocrinology: Denies change in body appearance, cold intolerance, excessive sweating, heat intolerance, polydipsia or polyuria Hematologic/Lymphatic Hematologic/Lymphatic: Denies none, anemia, easy bleeding, easy bruising or lymphadenopathy Allergic/Immunologic Allergic/Immunologic: Denies rhinitis, urticaria, eczemia or asthma Vital Signs Vital Signs Vital Signs: 03/17/23 18:48 03/17/23 20:00 03/17/23 21:00 Temperature 98.7 F Temperature Source Temporal Pulse Rate 116 H Respiratory Rate 20 H 15 15 Blood Pressure 136/100 H Blood Pressure Mean 112 Blood Pressure Source Blood Pressure Position Blood Pressure Location Pulse Ox 97 Oxygen Delivery Method Room Air Room Air Room Air 03/17/23 22:48 03/18/23 01:00 03/18/23 02:00 Temperature Temperature Source Pulse Rate Respiratory Rate 16 15 15 Blood Pressure Blood Pressure Mean Blood Pressure Source Blood Pressure Position Blood Pressure Location Pulse Ox Oxygen Delivery Method Room Air Room Air 03/18/23 05:53 03/18/23 09:05 03/18/23 11:29 Temperature 97.8 F Temperature Source Temporal Pulse Rate 93 90 Respiratory Rate 15 18 16 Blood Pressure 154/84 H 134/68 H Blood Pressure Mean 107 90 Blood Pressure Source Blood Pressure Position Blood Pressure Location Pulse Ox 94 99 Oxygen Delivery Method Room Air Room Air 03/18/23 10:05 03/18/23 12:22 03/18/23 14:11 Temperature 97.9 F 98.2 F Temperature Source Temporal Oral Pulse Rate 90 93 103 H Respiratory Rate 18 18 18 Blood Pressure 134/68 H 152/85 H 162/94 H Blood Pressure Mean 90 107 116 Blood Pressure Source Monitor Monitor Blood Pressure Position Semi-Fowlers Blood Pressure Location Left Arm Pulse Ox 99 100 97 Oxygen Delivery Method Room Air Room Air Room Air Weight Weight: 166.514 kg Body Mass Index (BMI) 45.8 Physical Exam Const alert and no apparent distress Constitutional Narrative: Patient is morbidly obese, he does not carry on a conversation with this examiner but nods his head to simple questions General Appearance: cooperative, well kempt and well developed Orientation / Consciousness: awake HEENT normocephalic, head/scalp atraumatic, hearing grossly normal bilaterally and moist oral mucous membranes Eyes PERRL, EOMs intact bilaterally and conjunctivae normal Neck supple, no JVD, thyroid normal and no carotid bruits General: trachea midline Resp normal respiratory effort, no retractions, no use of accessory muscles and clear to auscultation bilaterally Auscultation: Negative for rales, rhonchi or wheezes Cardio regular rate, regular rhythm, S1 normal heart sound, S2 normal heart sound, no murmurs, no rub and no gallops GI normal to inspection, nondistended, normoactive bowel sounds, soft to palpation, non-tender and non-distended GI Narrative: Patient is morbidly obese Extremity no clubbing, cyanosis or edema Skin no rashes or lesions noted General Skin Exam: no breakdown Neuro CN's II-XII intact bilaterally, moves all extremities, no focal motor deficits and no sensory deficits noted Sensorium / Orientation: awake and alert Speech: speech normal Psych Psych Narrative: Patient appears withdrawn and quiet Results Lab / Micro Data Result Diagrams: 03/18/23 09:13 03/17/23 20:32 Labs: Laboratory Results - last 24 hr 03/17/23 20:32: Sodium 141, Potassium 4.0, Chloride 108 H, Carbon Dioxide 20.0 L , Anion Gap 13, BUN 8, Creatinine 0.86, Estim Creat Clear Calc 130.10, Est GFR (MDRD) Af Amer 126, Est GFR (MDRD) Non-Af 104, BUN/Creatinine Ratio 9.3 L, Glucose 77, Calcium 8.7 03/17/23 20:32: Ethyl Alcohol 144.0 03/17/23 20:55: Urine Opiates Screen NEGATIVE, Urine Methadone Screen NEGATIVE, Ur Barbiturates Screen POSITIVE H, Ur Phencyclidine Scrn NEGATIVE, Ur Amphetamines Screen NEGATIVE, MDMA (Ecstasy) Screen NEGATIVE, U Benzodiazepines Scrn POSITIVE H, Urine Cocaine Screen NEGATIVE, U Cannabinoids Screen POSITIVE H , Ur Drug Screen Comment 03/17/23 20:55: Urine Color Yellow, Urine Clarity Clear, Urine pH 7.0, Ur Specific [place] 1.005, Urine Protein Negative, Urine Glucose (UA) Normal, Urine Ketones Negative, Urine Occult Blood Negative, Urine Nitrite Negative, Urine Bilirubin Negative, Urine Urobilinogen Normal, Ur Leukocyte Esterase Negative, Urine RBC 0 SEEN, Urine WBC 0 SEEN, Ur Squamous Epith Cells 0 SEEN, Urine Bacteria 0 SEEN, Urine Mucus 0 SEEN 03/18/23 09:13: Total Bilirubin 0.30, Direct Bilirubin 0.13, AST 23, ALT 28, Alkaline Phosphatase 107, Total Protein 7.4, Albumin 3.3, Globulin 4.1 03/18/23 09:13: WBC 4.8, RBC 4.90, Hgb 10.8 L, Hct 37.8 L, MCV 77.1 L, MCH 22.0 L, MCHC 28.6 L, RDW Std Deviation 50.2 H, RDW Coeff of Nasima 18.7 H, Plt Count 265, MPV 9.1, Immature Gran % (Auto) 0.400, Neut % (Auto) 54.8, Lymph % (Auto) 24.9, [place] % (Auto) 7.7, Eos % (Auto) 11.0 H, Baso % (Auto) 1.2 H, Absolute Neuts (auto) 2.6, Absolute Lymphs (auto) 1.20, Nucleated RBC % 0 Micro: Microbiology 03/17/23 20:50 Nasal Secretion SARS-CoV-2 Antigen (Rapid) - Final Assessment & Plan Assessment/Plan (1) Alcohol abuse: PLAN: Plan 1. Acute alcohol withdrawal-patient appears minimally symptomatic at this time, he will be admitted to [facility], orders were entered using alcohol detox order set. #2 chronic alcoholism-complicates care, medical course, recovery, and prognosis #3 suicidal ideation-it has been recommended that the patient be transferred to a psychiatric facility, again he cannot be transferred unless he has at least 24 hours of CIWA scores #4 essential hypertension-patient will remain on his present medications #5 morbid obesity-complicates care, medical course, recovery, and prognosis Total clinical time spent by myself addressing patient's medical problems, reviewing all of the data, and collaborating with patient's care team: 55 minutes Charges/Coding Visit Charges Inpatient E&M: 99632 Init Hosp L2
[2023-03-18] MEDS: Ibuprofen 600 MG Tablet PO (17:57)
[2023-03-18] MEDS: Ondansetron 8 MG Tablet PO (20:45)
--- NOTE | 2023-03-18 20:52 | NURSING ---
2035 shift assessment and vitals were not done by Margo Denis Rn, completed by Jessica Banks Rn.
[2023-03-19] MEDS: Mag Hydrox/Al Hydrox/Simeth 30 ML UDC PO ×2 (00:12→07:46)
[2023-03-19 02:00] VITALS: BP 130/89; PULSE 76; RESP 18; TEMP 36.7; O2SAT 95
[2023-03-19] MEDS: Phenobarbital 32.4 MG Tablet PO ×6 (02:08→21:36)
[2023-03-19] MEDS: Levothyroxine 150 MCG Tablet PO (05:57)
[2023-03-19 05:59] VITALS: BP 148/95; PULSE 87; RESP 17; TEMP 36.9; O2SAT 95
[2023-03-19] MEDS: Lisinopril 40 MG Tablet PO (06:30)
[2023-03-19] MEDS: amLODIPine 5 MG Tablet PO (06:32)
[2023-03-19 07:44] VITALS: BP 147/96; PULSE 90; RESP 18; TEMP 36.6; O2SAT 95
[2023-03-19] MEDS: Pantoprazole Sodium 40 MG Tablet PO (07:46)
[2023-03-19] MEDS: Escitalopram Oxalate 20 MG Tablet PO (07:47)
[2023-03-19] MEDS: Thiamine Hydrochloride 100 MG Tablet PO (07:47)
[2023-03-19] MEDS: Folic Acid 1 MG Tablet PO (07:47)
--- NOTE | 2023-03-19 08:17 | NURSING ---
Crisis called for update, awaiting call back from Julia.
--- NOTE | 2023-03-19 08:34 | NURSING ---
Julia from crisis returned call. Stated that [facility] will not be able to accept patient over the weekend and they will touch base again on Tuesday. Dr. Baptiste aware.
--- NOTE | 2023-03-19 11:01 | PCM.PN.HOSP ---
Reason for Visit Reason for Visit: Diagnoses Alcohol abuse, uncomplicated (03/18/23) Subjective Subjective Patient was seen and examined today, he is alert and appropriate, he does not appear sedated. We are not able to get the patient into an inpatient psych facility this weekend, they will not accept admissions. It appears that the patient will have to remain here through the and we will have to try again Tuesday. Objective Data Objective Data Vital Signs: Vital Signs Temp Pulse Resp BP Pulse Ox O2 Del Method 97.8 F 90 18 147/96 H 95 Room Air 03/19/23 07:44 03/19/23 07:44 03/19/23 07:44 03/19/23 07:44 03/19/23 07:44 03/19/23 07:44 Oxygen Delivery Method Room Air Weight: 166.514 kg Body Mass Index (BMI) 45.8 Intake & Output: Intake and Output for Last 24 Hours 03/17/23 03/18/23 03/19/23 23:59 23:59 23:59 Intake Total 1000 / 1000 600 / 600 Balance 1000 / 1000 600 / 600 Lab / Micro Data Result Diagrams: 03/18/23 09:13 03/17/23 20:32 Micro: Microbiology 03/17/23 20:50 Nasal Secretion SARS-CoV-2 Antigen (Rapid) - Final Physical Exam Const alert, oriented x3, no apparent distress and healthy appearing Constitutional Narrative: Patient is morbidly obese General Appearance: cooperative, well kempt and well developed Orientation / Consciousness: awake, oriented to person, oriented to place and oriented to time HEENT normocephalic and moist oral mucous membranes Eyes PERRL, EOMs intact bilaterally and conjunctivae normal Neck supple, no JVD, thyroid normal and no carotid bruits General: trachea midline Resp normal respiratory effort, no retractions, no use of accessory muscles and clear to auscultation bilaterally Auscultation: Negative for rales, rhonchi or wheezes Cardio regular rate, regular rhythm, S1 normal heart sound, S2 normal heart sound, no murmurs, no rub and no gallops GI normal to inspection, nondistended, normoactive bowel sounds, soft to palpation, non-tender and non-distended Extremity no clubbing, cyanosis or edema Skin no rashes or lesions noted General Skin Exam: no breakdown Neuro oriented x3, CN's II-XII intact bilaterally, moves all extremities, no focal motor deficits and no sensory deficits noted Sensorium / Orientation: awake and alert Speech: speech normal Psych affect normal Assessment & Plan Assessment/Plan (1) Alcohol abuse: PLAN: Plan 1. Acute alcohol withdrawal-patient appears minimally symptomatic at this time, continue present medications #2 chronic alcoholism-complicates care, medical course, recovery, and prognosis #3 suicidal ideation-it has been recommended that the patient be transferred to a psychiatric facility, again he cannot be transferred this weekend, the psych facility will not take admissions on the , it is likely that he could go there on Tuesday however. #4 essential hypertension-patient will remain on his present medications #5 morbid obesity-complicates care, medical course, recovery, and prognosis Total clinical time spent by myself addressing patient's medical problems, reviewing all of the data, and collaborating with patient's care team: 35 minutes Charges/Coding Visit Charges Inpatient E&M: 30969 Subs Hosp L2
[2023-03-19 14:07] VITALS: BP 149/81; PULSE 82; RESP 18; TEMP 36.9; O2SAT 95
[2023-03-19 20:30] VITALS: BP 128/73; PULSE 86; RESP 16; TEMP 37.1; O2SAT 97
[2023-03-19] MEDS: Ibuprofen 600 MG Tablet PO (20:35)
[2023-03-19 20:36] VITALS: O2SAT 98
[2023-03-20] MEDS: Phenobarbital 32.4 MG Tablet PO ×6 (01:57→21:49)
[2023-03-20 02:30] VITALS: BP 115/51; PULSE 71; RESP 16; TEMP 36.7; O2SAT 95
[2023-03-20] MEDS: Levothyroxine 150 MCG Tablet PO (05:47)
[2023-03-20 08:28] VITALS: BP 156/100; PULSE 70; RESP 18; TEMP 36.4; O2SAT 100
[2023-03-20] MEDS: Folic Acid 1 MG Tablet PO (08:33)
[2023-03-20] MEDS: Thiamine Hydrochloride 100 MG Tablet PO (08:33)
[2023-03-20] MEDS: Lisinopril 40 MG Tablet PO (08:34)
[2023-03-20] MEDS: Escitalopram Oxalate 20 MG Tablet PO (08:34)
[2023-03-20] MEDS: Pantoprazole Sodium 40 MG Tablet PO (08:34)
[2023-03-20] MEDS: amLODIPine 5 MG Tablet PO (08:35)
[2023-03-20] MEDS: hydrOXYzine PAM 25 MG Capsule 50 MG PO ×2 (08:38→14:37)
--- NOTE | 2023-03-20 10:08 | NURSING ---
Julia from Crisis called, stated patient is still needing psych placement and we are waiting for availability at [facility]. Will fax updated clinicals per her request.
--- NOTE | 2023-03-20 10:27 | PCM.PN.HOSP ---
Reason for Visit Reason for Visit: Diagnoses Alcohol abuse, uncomplicated (03/18/23) Subjective Subjective Patient was seen and examined today, I explained to the patient why he needed to stay in the hospital yesterday, he asked me the same question today and explained again. Patient does not seem to be somnolent on his medications, he has no complaints to this examiner. Objective Data Objective Data Vital Signs: Vital Signs Temp Pulse Resp BP Pulse Ox O2 Del Method 97.5 F L 70 18 156/100 H 100 Room Air 03/20/23 08:28 03/20/23 08:28 03/20/23 08:28 03/20/23 08:28 03/20/23 08:28 03/20/23 08:31 Oxygen Delivery Method Room Air Weight: 166.514 kg Body Mass Index (BMI) 45.8 Intake & Output: Intake and Output for Last 24 Hours 03/18/23 03/19/23 03/20/23 23:59 23:59 23:59 Intake Total 600 / 600 1050 / 1050 1000 / 1000 Balance 600 / 600 1050 / 1050 1000 / 1000 Lab / Micro Data Result Diagrams: 03/18/23 09:13 03/17/23 20:32 Micro: Microbiology 03/17/23 20:50 Nasal Secretion SARS-CoV-2 Antigen (Rapid) - Final Physical Exam Narrative alert, oriented x3, no apparent distress and healthy appearing Constitutional Narrative: Patient is morbidly obese General Appearance: cooperative, well kempt and well developed Orientation / Consciousness: awake, oriented to person, oriented to place and oriented to time HEENT normocephalic and moist oral mucous membranes Eyes PERRL, EOMs intact bilaterally and conjunctivae normal Neck supple, no JVD, thyroid normal and no carotid bruits General: trachea midline Resp normal respiratory effort, no retractions, no use of accessory muscles and clear to auscultation bilaterally Auscultation: Negative for rales, rhonchi or wheezes Cardio regular rate, regular rhythm, S1 normal heart sound, S2 normal heart sound, no murmurs, no rub and no gallops GI normal to inspection, nondistended, normoactive bowel sounds, soft to palpation, non-tender and non-distended Extremity no clubbing, cyanosis or edema Skin no rashes or lesions noted General Skin Exam: no breakdown Neuro oriented x3, CN's II-XII intact bilaterally, moves all extremities, no focal motor deficits and no sensory deficits noted Sensorium / Orientation: awake and alert Speech: speech normal Psych affect normal Assessment & Plan Assessment/Plan (1) Alcohol abuse: PLAN: Plan 1. Acute alcohol withdrawal-patient appears minimally symptomatic at this time, continue present medications #2 chronic alcoholism-complicates care, medical course, recovery, and prognosis #3 suicidal ideation-we are awaiting word from a psychiatric facility in order to admit the patient there, patient states that he was serious when he voiced suicidal ideation when he came to the hospital. #4 essential hypertension-patient will remain on his present medications #5 morbid obesity-complicates care, medical course, recovery, and prognosis Total clinical time spent by myself addressing patient's medical problems, reviewing all of the data, and collaborating with patient's care team: 36 minutes Charges/Coding Visit Charges Inpatient E&M: 73175 Subs Hosp L2
[2023-03-20 14:29] VITALS: BP 165/96; PULSE 100; RESP 18; TEMP 36.4; O2SAT 97
[2023-03-20] MEDS: Ibuprofen 600 MG Tablet PO (15:45)
[2023-03-20 17:53] VITALS: BP 138/82; PULSE 84; RESP 18; TEMP 36.6; O2SAT 94
[2023-03-20] MEDS: Gabapentin 300 MG Capsule PO (19:37)
[2023-03-20 19:59] VITALS: O2SAT 97
[2023-03-20 21:09] VITALS: BP 148/83; PULSE 88; RESP 16; TEMP 36.6; O2SAT 97
[2023-03-21] MEDS: Mag Hydrox/Al Hydrox/Simeth 30 ML UDC PO (00:10)
[2023-03-21 05:27] VITALS: BP 138/77; PULSE 82; RESP 18; TEMP 36.6; O2SAT 97
[2023-03-21] MEDS: Levothyroxine 150 MCG Tablet PO (05:29)
[2023-03-21] MEDS: Folic Acid 1 MG Tablet PO (08:16)
[2023-03-21] MEDS: Lisinopril 40 MG Tablet PO (08:16)
[2023-03-21] MEDS: amLODIPine 5 MG Tablet PO (08:16)
[2023-03-21] MEDS: Thiamine Hydrochloride 100 MG Tablet PO (08:16)
[2023-03-21] MEDS: Escitalopram Oxalate 20 MG Tablet PO (08:16)
[2023-03-21] MEDS: Pantoprazole Sodium 40 MG Tablet PO (08:16)
[2023-03-21 09:32] VITALS: BP 147/78; PULSE 79; RESP 18; TEMP 36.3; O2SAT 100
--- NOTE | 2023-03-21 09:59 | CASEMGMT ---
Addendum entered by Katy Bar 03/21/23 11:05: 1016- TC back to Crisis to see estimated time of assessment per charge nurse request. Julia states [facility] is requesting documentation that pt is medically cleared. She states she will be on her way now. Charge nurse came out of room, pt very upset. Julia states she can perform assessment on the phone. This was done. Spoke with Julia following who states she cannot recommend dc for pt. States she is recommending inpatient psych. She will write her report and fax to the floor. Updated charge nurse, JENNIFER. Updated hospitalist of the above as well as request for medical clearance by [facility]. Original Note: Spoke with charge nurse and hospitalist regarding pt placement and request for re eval. TC to Julia Denis at Crisis who states that she will check on the bed and will come to see pt for eval. Updated charge nurse.
[2023-03-21] MEDS: Ondansetron 8 MG Tablet PO (10:12)
[2023-03-21] MEDS: Phenobarbital 32.4 MG Tablet PO ×3 (10:55→22:01)
[2023-03-21] MEDS: hydrOXYzine PAM 25 MG Capsule 50 MG PO ×2 (10:56→16:03)
[2023-03-21] MEDS: Gabapentin 300 MG Capsule PO (10:56)
--- NOTE | 2023-03-21 11:06 | NURSING ---
Addendum entered by Jami Bazan 03/21/23 12:08: Just to clarify names involved in today Charge nurse was Kin Cheung Nursing channel supervisor was Jelly Castillo Risk management is Namrata Hu attendance officer was aPul Aguirre at the time was Izabela Cheung Original Note: Pt was asking at 10:00 am to leave AMA he stated his 72hr pink slip hold was over and he could leave at his own will. He was just asking for his things back. Dr. Robertson went into room and has done her morning rounds and reassigned a new pink slip for the pt. He said it was not legal for her to do this and was leaving AMA no matter what. Charge nurse called nursing sobeida and Namrata to ask about what needed to be done since pt was going to be pink slipped to [facility] today. Pt continued to get loud and irritated, he was given a dose of zofran and he refused his pheno taper dose. Security and [employer] was called to the floor. Pt had a phone call with crisis to be reevaluated resulting in her suggesting that he was not ok to be discharged. Pt later calmed down after [place] [employer] talked with pt and requested to take his pheno taper and his prn meds for anxiety. Pt was given these and he later admitted that he woke up and just wanted a cold beer and he just wanted to leave but he knows that this is the right thing for him. Said nurse spent 1on 1 time with pt from 10:00 until time of this note.
--- NOTE | 2023-03-21 11:07 | CASEMGMT ---
Addendum entered by Layla Russell 03/21/23 13:07: Document stating pt is medically clear faxed to Crisis. JENNIFER called Julia Orlando at the [facility] crisis department. Julia confirmed fax had been received. JENNIFER asked if Crisis needs anything else and Julia stated someone spoke to Julia's director Savanah and was told updated [facility] reports were needed. SW will follow up on this. Julia informed next steps in the process are for Crisis to work with [facility] to being getting pt accepted. Julia reports [facility] was backed up and that once pt is accepted pt will be put on a waiting list for a bed. Julia not aware how long the list will last or how quickly the process will move but did say the process is quicker during the week. JENNIFER followed up with senior fund accountant who shared the [facility] reports had been faxed to Crisis already. Original Note: Social Work SW back on [facility]3 floor from seeing pt on ICU. CABRERA LITTLE, rim fire charger operator, and Tiny Neal including SW in escalated situation with pt who is requesting to leave. Pt pink slipped and believes 72 hour hold ended this morning. Tiny asked SW if there is bed available at [facility] as it was recommended that pt have inpatient psych placement after assessment from crisis on 03/18/23. JENNIEFR explained based on handoff from weekend SW that [facility] requesting pt be medically clear and detoxed before able to admit to their facility. CABRERA LITTLE updated MD Robertson of this while SW off floor. MD Robertson to inform SW when progress note from today is complete. SW will fax progress note from today that states pt is medically clear to Crisis, who is following up on pt placement at [facility]. PLAN: [facility] inpatient psych LESIA Borrego
--- NOTE | 2023-03-21 12:18 | DS.PCM_ITS ---
Providers Date of Admission: 03/18/23 Date of Discharge: 03/21/23 Primary Care Physician: No Primary Care Phys Reason For Visit: ALCOHOL WITHDRAWAL Diagnosis Discharge Diagnosis (1) Alcohol abuse: Status: Acute Code(s): F10.10 - Alcohol abuse, uncomplicated Medications at Discharge Home Medications escitalopram oxalate 20 mg tablet (Lexapro) 20 mg PO DAILY depression 06/23/22 levothyroxine 150 mcg tablet 150 mcg PO DAILY thyroid 06/23/22 lisinopril 40 mg tablet 40 mg PO DAILY HTN 06/23/22 pantoprazole 40 mg tablet,delayed release (Protonix) 40 mg PO DAILY GERD 06/23/22 amlodipine 5 mg tablet 5 mg PO DAILY 30 days #30 tabs 08/04/22 ferrous sulfate 325 mg (65 mg iron) tablet (FeroSul) 325 mg PO DAILY 03/18/23 Hospital Course Operations None Procedures None Summary of Care Provided Minutes Spent on Discharge: 55 Hospital Course: Patient is a 42 y/o male with a PMH as outlined which includes polysubstance abuse including alcohol abuse and suicidal ideation. He was admitted through the ED on 03/18/2023 after being brought in by the police. He was found intoxicated and threatening to kill himself. He stated he wanted to shoot himself. He did not have a gun but said he had access to firearms through his friends. Patient had been admitted multiple times in this hospital for alcohol withdrawal and had signed out AMA multiple times. The rehab program was refusing to accept patient any longer because of his frequent signing out AMA. On admission, urine tox was positive for barbiturates, benzodiazepines and cannabinoids. Mental health crisis evaluated patient and was deemed as benefiting from transfer to a psych facility. However the psych facility would not take patient unless he had had at least 24 hours of CIWA scores charted. He was admitted and managed for acute alcohol withdrawal and suicidal ideation. He was treated with phenobarbital withdrawal protocol. He tolerated the 3-day det ox process. He had a sitter by him throughout admission. Patient was pink slipped on admission. On day of discharge patient said he wanted to leave the hospital as his pink slip had and he did not want to go to the psych facility. However in light of him having had suicidal ideation since, this hospitalist renewed the pink slip. Patient was accepted at an inpatient psychiatric facility for suicidal ideation. Patient was clinically stable and medically cleared for discharge to the psych facility on 03/21/2023. Patient was seen and examined prior to discharge. Patient was upset and verbally abusive because he wanted to sign out AMA as he said his pink slip had . He had no active complaints review of systems otherwise negative. He has remained hemodynamically stable. Physical Exam Const alert, oriented x3 and no apparent distress General Appearance: anxious Orientation / Consciousness: awake Exam Limitations: no limitations HEENT normocephalic, head/scalp atraumatic and hearing grossly normal bilaterally Eyes PERRL, EOMs intact bilaterally and conjunctivae normal Neck no lymphadenopathy and supple Resp normal respiratory effort, no retractions and no use of accessory muscles Cardio regular rate, regular rhythm, S1 normal heart sound and S2 normal heart sound GI normal to inspection, nondistended, normoactive bowel sounds, soft to palpation, non-tender and non-distended Extremity normal to inspection, full ROM and no clubbing, cyanosis or edema Skin no rashes or lesions noted, no wounds and skin turgor normal Neuro oriented x3, CN's II-XII intact bilaterally, moves all extremities and no focal motor deficits Sensorium / Orientation: awake and alert Psych Mood & Affect: anxious Weight / BMI Weight Weight: 367 lb 1.6 oz Body Mass Index (BMI) 45.8 ABG / Lab / Microbiology Data Result Diagrams: 03/18/23 09:13 03/17/23 20:32 Microbiology: Microbiology 03/17/23 20:50 Nasal Secretion SARS-CoV-2 Antigen (Rapid) - Final D/C Instructions Discharge Diet: No restrictions Discharge Activity: Return to Normal Activity Weight Bearing Status: Weight bearing as tolerated Call your doctor if you observe: Fever of 101 or Higher, Shortness of breath, Dizziness, Swelling in the ankles, Chest pain and Increased palpitations (irregular heartbeat) Meaningful Use Info Meaningful Use Diagnoses (Choose all that apply): None applicable Discharge Plan Admission Admit Date/Time: 03/18/23 12:07 Primary Reason for Your Visit: suicidal ideation, acute alcohol withdrawal Attending Provider: Lesly Robertson Primary Care Provider: Care Physician,No Primary Consulting Providers: David Baptiste Discharge Orders/Prescriptions Prescriptions: Continued pantoprazole [Protonix] 40 mg Tablet,Delayed Release (Dr/Ec) 40 mg PO DAILY levothyroxine 150 mcg Tablet 150 mcg PO DAILY lisinopril 40 mg Tablet 40 mg PO DAILY escitalopram oxalate [Lexapro] 20 mg Tablet 20 mg PO DAILY amlodipine 5 mg Tablet 5 mg PO DAILY 30 Days Qty: 30 0RF ferrous sulfate [FeroSul] 325 mg (65 mg iron) tablet 325 mg PO DAILY Referrals / Follow Up: Care Physician,No Primary [Primary Care Provider] - Disposition Disposition (needs filled in before D/C Order can be placed): Psychiatric Hospital or Unit Charges/Coding Visit Charges Inpatient E&M: 57079 Disch Hosp >30min
--- NOTE | 2023-03-21 13:24 | PHA.DC.MR ---
Pharmacy Service has performed discharge medication reconciliation for this patient. The patient's discharge medication list was reviewed for discrepancies and discrepancies were resolved. Home Medications escitalopram oxalate 20 mg tablet (Lexapro) 20 mg PO DAILY depression 06/23/22 levothyroxine 150 mcg tablet 150 mcg PO DAILY thyroid 06/23/22 lisinopril 40 mg tablet 40 mg PO DAILY HTN 06/23/22 pantoprazole 40 mg tablet,delayed release (Protonix) 40 mg PO DAILY GERD 06/23/22 amlodipine 5 mg tablet 5 mg PO DAILY 30 days #30 tabs 08/04/22 ferrous sulfate 325 mg (65 mg iron) tablet (FeroSul) 325 mg PO DAILY 03/18/23
[2023-03-21 14:03] VITALS: BP 154/80; PULSE 79; RESP 18; TEMP 36.6; O2SAT 99
[2023-03-21] MEDS: Ibuprofen 600 MG Tablet PO (14:51)
--- NOTE | 2023-03-21 16:04 | NURSING ---
late entry: around 10am I was called into the room by the sitter. pt was standing in room pacing stated i want my stuff i want to leave I informed pt that he was pink slipped and could be discharged. Pt states that that is bullshit my pink slip is only for 72hrs and my 72hrs are up i know my rights and you legally can not hold me. I informed pt to let me speak with the doctor to make sure. Dr. Robertson was on the unit. I spoke to her and she stated that pt is pink slipped and he can not go anywhere. I went back to inform pt - pt states thats fucking bullshit she cannot do that, i know my rights and thats illegal I informed him that I am uncertain of this and let me make a few calls to find the answers for him. pt still pacing around the room very upset. This RN called Production Line Technician Jelly Valadez to see if the information was correct - Jelly suggested that I call Nmarata Brown Risk Management-Compliance of the Hospital. Called an spoke to Namrata about the [place] slip protocol. She suggested also to have Crisis come a re-eval pt to make sure pt is not suicidal. Went in the room to inform pt that we are going to have Crisis come a re-eval pt; pt was yelling you have no fucking right this is illegal i know my rights. my 72 hr hold is up. Again tried to talk with pt, pt pacing around swinging his arms. Security Miller was at [facility] - we had no HRO on site at this time and so Paul called [place] [employer] ([employer]). I tried reasoning with pt - pt still very upset and pacing around room. Pts Nurse Jami and the Sitter Izaebla Valadez were standing at [facility] - instructed for them to stay there and not to go into the room. I left to talk with Katy LITTLE; Katy was on the phone with Crisis and stated that they will be on their way shortly - asked if they could do it on the phone- she stated yes. Katy and myself took phone into [facility] room. informed him that it was Crisis to do the eval. phone was on speaker so we could hear. Elena did their evaluation. during this pt was getting short with addiction social worker Julia Perry During the conversation [employer] showed up. I informed him of what was going on. At the end of the evaluation Crisis believed that he was not safe to be cleared and they recommended inpt physiatric facility. Pt became irate. screaming and yelling. MICHELLE went into room to calm pt down and to give him options. after about 5-7 minutes pt had calmed down and was sitting on his bed. MICHELLE came back out and spoke with me - stated that if we need anything else we could call. Sitter at doorway sitting with pt. Pt asking for something to help calm his nerves down. Jami REES gave medications.
--- NOTE | 2023-03-21 16:34 | PN_ITS ---
Subjective Subjective Patient seen and examined. He had no active complaints today. He was insisting on signing out AMA because he said his splint slip had and he wanted to leave. Patient counseled that he could not leave because of the suicidal ideation and needed placement to the psych facility. Objective Data Objective Data Vital Signs: Vital Signs Temp Pulse Resp BP Pulse Ox O2 Del Method 98 F 79 18 154/80 H 99 Room Air 03/21/23 14:03 03/21/23 14:03 03/21/23 14:03 03/21/23 14:03 03/21/23 14:03 03/21/23 14:03 Oxygen Delivery Method Room Air Weight: 367 lb 1.6 oz Body Mass Index (BMI) 45.8 Intake & Output: Intake and Output for Last 24 Hours 03/19/23 03/20/23 03/21/23 23:59 23:59 23:59 Intake Total 1050 / 1050 2200 / 2600 900 / 900 Balance 1050 / 1050 2200 / 2600 900 / 900 Lab / Micro Data Result Diagrams: 03/18/23 09:13 03/17/23 20:32 Micro: Microbiology 03/17/23 20:50 Nasal Secretion SARS-CoV-2 Antigen (Rapid) - Final Physical Exam Const alert, oriented x3 and no apparent distress HEENT head/scalp atraumatic Eyes PERRL and EOMs intact bilaterally Neck no lymphadenopathy and supple Lymph Lymphatic: no lymphadenopathy noted Resp normal respiratory effort, normal air movement and clear to auscultation b ilaterally Cardio regular rate, regular rhythm, S1 normal heart sound, S2 normal heart sound and no murmurs GI normal to inspection, nondistended, normoactive bowel sounds, soft to palpation, non-tender and non-distended Extremity normal capillary refill, no clubbing, cyanosis or edema and no calf tenderness Skin General Skin Exam: no breakdown Neuro CN's II-XII intact bilaterally, no focal motor deficits, no sensory deficits noted and deep tendon reflexes 2+ bilaterally Motor Exam: strength 5/5 throughout Psych Psych Narrative: Patient being verbally aggressive Assessment & Plan Assessment/Plan (1) Alcohol abuse: (2) Alcohol intoxication: (3) Suicidal ideation: PLAN: Plan #Acute alcohol withdrawal * Resolved. Tolerated 3-day detox process with phenobarbital * On thiamine, folic acid and Multivite's. * Adjunctive meds for symptomatic relief. * #Suicidal ideation * Awaiting discharge to [facility]. DC they will have a bed about 1 to 2 days. Patient pink slipped again this is old being slightly today. * #Benign essential hypertension: On lisinopril #Morbid obesity: BMI is 45.9. Complicates acute care, expected recovery and prognosis. #Hypothyroidism: On Synthroid DVT prophylaxis: Lovenox Charges/Coding Visit Charges Inpatient E&M: 93171 Subs Hosp L2
[2023-03-21 22:04] VITALS: BP 144/85; PULSE 84; RESP 16; TEMP 36.8; O2SAT 97
[2023-03-22] MEDS: Phenobarbital 32.4 MG Tablet PO ×2 (04:07→10:08)
[2023-03-22] MEDS: Levothyroxine 150 MCG Tablet PO (04:09)
[2023-03-22 04:12] VITALS: BP 144/84; PULSE 78; RESP 16; TEMP 36.8; O2SAT 97
--- NOTE | 2023-03-22 07:40 | NURSING ---
Call placed to Crisis, left message with their staff requesting update on bed situation for placement. aware Gale from crisis is to return call.
--- NOTE | 2023-03-22 07:58 | NURSING ---
talked with Primary RN Jami that patient has made statements to the suicide sitter Jael that Dr. Robertson better not enter his room or he is going to go off. call placed to data warehouse developer Jelly Valadez to inform her of above. This nurse checked on Jael Sitter whom states patient just fell asleep and settled down at the moment.
--- NOTE | 2023-03-22 08:09 | NURSING ---
0806: Alena Neal division merchandise manager called regarding conversation with Dr. Robertson. Aware Alena calling patient advocate [employer] and compliance team. 0813 Finished update with manager of housekeeping Jelly after talked with Dr. Robertson on the unit. Aware Dr. Ramos will round on the patient and she is requesting social work and crisis work on finding place for patient.
--- NOTE | 2023-03-22 08:17 | NURSING ---
8:01 AM?Lesly Lucio off? Is that a threat of violence? 8:01 AM?Charge Nurse [id number] 8:01 AM?Lesly Ontiveros, I don't know if anyone is going to see him if he's threatening violence 8:02 AM?Charge Nurse MS3 Gerber I just thought I would warn you 8:02 AM?Lesly Zaldivar pls let the patient advocate know. I can't ask Dr Ramos or Dr Soria to see him when he's threatening violence. And please let the hospital compliance team know also. 8:02 AM?Charge Nurse [id number] 8:03 AM?Lesly Saleem needs to re evaluate him. We cannot let him go, and case management needs to find him a bed like yesterday. 8:03 AM?Charge Nurse MS3 Ok
--- NOTE | 2023-03-22 08:36 | PCM.PN.HOSP ---
Reason for Visit Reason for Visit: Diagnoses Alcohol abuse, uncomplicated (03/18/23) Alcohol use, unspecified with intoxication, unspecified (03/18/23) Suicidal ideations (03/18/23) Subjective Subjective Patient is a 42-year-old gentleman with history of alcohol abuse admitted with acute alcohol withdrawal as well as suicidal ideation. Patient was pink slipped on admission with plans for patient to be transferred to an inpatient psych facility. Patient seen this a.m. patient is belligerent. Patient is [place] threatening to hurt someone if he is not allowed to be discharged home. The hospital security has been made aware. Patient did ask my colleague Dr. Robertson not to come see him resulting in patient attending being switched to my service. Objective Data Objective Data Vital Signs: Vital Signs Temp Pulse Resp BP Pulse Ox O2 Del Method 98.2 F 78 16 144/84 H 97 Room Air 03/22/23 04:12 03/22/23 04:12 03/22/23 04:12 03/22/23 04:12 03/22/23 04:12 03/22/23 04:12 Oxygen Delivery Method Room Air Weight: 166.514 kg Body Mass Index (BMI) 45.8 Intake & Output: Intake and Output for Last 24 Hours 03/20/23 03/21/23 03/22/23 23:59 23:59 23:59 Intake Total 2200 / 2600 900 / 900 1200 / 1200 Balance 2200 / 2600 900 / 900 1200 / 1200 Lab / Micro Data Result Diagrams: 03/18/23 09:13 03/17/23 20:32 Micro: Microbiology 03/17/23 20:50 Nasal Secretion SARS-CoV-2 Antigen (Rapid) - Final Physical Exam Narrative GENERAL: Belligerent HEENT: Atraumatic; normocephalic EYES; Anicteric, Normal Conjunctiva NECK; supple, normal thyroid, RESPIRATORY: Tachypneic NEURO: Awake; no lateralizing signs. SKIN: No Rash PSYCH; Flat affect Assessment & Plan Assessment/Plan (1) Alcohol abuse: (2) Suicidal ideation: PLAN: Plan Patient is a 42-year-old gentleman with history of alcohol abuse admitted with acute alcohol withdrawal as well as suicidal ideation. 1. Acute alcohol withdrawal ? Patient is on phenobarb taper in addition to symptomatic treatment 2. Suicidal ideation ? Plan is for patient to be transferred to an inpatient psych facility.. As stated above patient is threatening to hurt someone if he is not allowed to be discharged. The crisis center as well as hospital security aware of patient's traits 3. Hypertension - Blood pressure controlled, home medications continued with dose adjustment as needed 4. Class III obesity with BMI 45.9 ? Weight loss advised 5. Hypothyroidism - Patient is on levothyroxine home dose continued 6. DVT prophylaxis - On enoxaparin Charges/Coding Visit Charges Inpatient E&M: 74424 [facility] Hosp L1
[2023-03-22 09:11] VITALS: BP 152/88; PULSE 85; RESP 18; TEMP 36.4; O2SAT 99
[2023-03-22] MEDS: Folic Acid 1 MG Tablet PO (09:15)
[2023-03-22] MEDS: Escitalopram Oxalate 20 MG Tablet PO (09:16)
[2023-03-22] MEDS: amLODIPine 5 MG Tablet PO (09:16)
[2023-03-22] MEDS: Lisinopril 40 MG Tablet PO (09:16)
[2023-03-22] MEDS: Pantoprazole Sodium 40 MG Tablet PO (09:16)
[2023-03-22] MEDS: Thiamine Hydrochloride 100 MG Tablet PO (09:16)
[2023-03-22] MEDS: hydrOXYzine PAM 25 MG Capsule 50 MG PO (09:31)
[2023-03-22] MEDS: Gabapentin 300 MG Capsule PO (09:31)
[2023-03-22] MEDS: Dicyclomine 10 MG Capsule 20 MG PO (09:31)
--- NOTE | 2023-03-22 10:09 | NURSING ---
talked with Savanah from crisis for update. aware she just got off the phone with Jarrell whom stated patient was accepted by Dr. Rico at [facility]. They are not ready for transport and will call Savanah when they are ready, they are hopeful it will be today. JENNIFER Rich, Salomón Burns and primary RN Jami being updated.
--- NOTE | 2023-03-22 11:18 | NURSING ---
Julia from crisis center called stating same as Savanah that was accepted by Dr. Fink at [facility] however they are not ready for transport at this time. Julia or Savanah from crisis will call [facility] when [facility] is ready for patient.
--- NOTE | 2023-03-22 11:43 | NURSING ---
assistant executive housekeeper notified pt more ramped up demanding to talk with physician and he wants discharged. pacing in his room [id number] security called requesting HRO as patient out in hallway ramped up demanding to talk to someone stating he's not suicidal and he wants to leave
--- NOTE | 2023-03-22 11:48 | NURSING ---
chaplain Valdovinos on unit. pt agreeable to go back to room to talk with molder machine tender. suicide sitter remains with patient.
--- NOTE | 2023-03-22 11:49 | NURSING ---
11:41 AM?Charge Nurse [id number] valery pt ramping up, more upset demanding to talk with you that he wants to leave and doesn't want to go to [facility]. gerson/vahid [id number] 11:43 AM?Vick Velásquez Let?s her crisis involved He has been pink slipped can reverse that 11:45 AM?Charge Nurse [id number] called me not even 20mintues ago and said he was accepted to [facility] and have an accepting physician but not a bed yet, hoping today. 11:45 AM?Vick Nicole That is what we will go with Talking to him further will agitate him because I won?t budge
--- NOTE | 2023-03-22 11:56 | NURSING ---
recieved phone call from Eloisa at [facility] stating we have a bed and ok to arrange transport. bed C2, report to be called to [phone]
--- NOTE | 2023-03-22 11:58 | NURSING ---
Alena Neal factory maintenance manager updated on bed status
--- NOTE | 2023-03-22 12:05 | DS.PCM_ITS ---
Providers Date of Admission: 03/18/23 Date of Discharge: 03/22/23 Primary Care Physician: Monserrat Primary Care Phys Reason For Visit: ALCOHOL WITHDRAWAL Diagnosis Discharge Diagnosis (1) Alcohol abuse: Status: Acute Code(s): F10.10 - Alcohol abuse, uncomplicated (2) Suicidal ideation: Status: Acute Code(s): R45.851 - Suicidal ideations Plan Patient is a 42-year-old gentleman with history of alcohol abuse admitted with a cute alcohol withdrawal as well as suicidal ideation. 1. Acute alcohol withdrawal ? Patient is on phenobarb taper in addition to symptomatic treatment 2. Suicidal ideation ? Plan is for patient to be transferred to an inpatient psych facility.. As stated above patient is threatening to hurt someone if he is not allowed to be discharged. The crisis center as well as hospital security aware of patient's traits 3. Hypertension - Blood pressure controlled, home medications continued with dose adjustment as needed 4. Class III obesity with BMI 45.9 ? Weight loss advised 5. Hypothyroidism - Patient is on levothyroxine home dose continued 6. DVT prophylaxis - On enoxaparin Medications at Discharge Home Medications escitalopram oxalate 20 mg tablet (Lexapro) 20 mg PO DAILY depression 06/23/22 levothyroxine 150 mcg tablet 150 mcg PO DAILY thyroid 06/23/22 lisinopril 40 mg tablet 40 mg PO DAILY HTN 06/23/22 pantoprazole 40 mg tablet,delayed release (Protonix) 40 mg PO DAILY GERD 06/23/22 amlodipine 5 mg tablet 5 mg PO DAILY 30 days #30 tabs 08/04/22 ferrous sulfate 325 mg (65 mg iron) tablet (FeroSul) 325 mg PO DAILY 03/18/23 Hospital Course Summary of Care Provided Minutes Spent on Discharge: 35 Physical Exam Narrative GENERAL: Belligerent HEENT: Atraumatic; normocephalic EYES; Anicteric, Normal Conjunctiva NECK; supple, normal thyroid, RESPIRATORY: Tachypneic NEURO: Awake; no lateralizing signs. SKIN: No Rash PSYCH; Flat affect Weight / BMI Weight Weight: 166.514 kg Body Mass Index (BMI) 45.8 ABG / Lab / Microbiology Data Result Diagrams: 03/18/23 09:13 03/17/23 20:32 Microbiology: Microbiology 03/17/23 20:50 Nasal Secretion SARS-CoV-2 Antigen (Rapid) - Final D/C Instructions Discharge Diet: No restrictions Discharge Activity: Return to Normal Activity Weight Bearing Status: Weight bearing as tolerated Call your doctor if you observe: Fever of 101 or Higher, Shortness of breath, Dizziness, Swelling in the ankles, Chest pain and Increased palpitations (irregular heartbeat) Meaningful Use Info Meaningful Use Diagnoses (Choose all that apply): None applicable Discharge Plan Admission Admit Date/Time: 03/18/23 12:07 Primary Reason for Your Visit: suicidal ideation, acute alcohol withdrawal Attending Provider: Vick Ramos Primary Care Provider: Care Physician,No Primary Consulting Providers: David Baptiste ; Lesly Robertson Discharge Orders/Prescriptions Prescriptions: Continued pantoprazole [Protonix] 40 mg Tablet,Delayed Release (Dr/Ec) 40 mg PO DAILY levothyroxine 150 mcg Tablet 150 mcg PO DAILY lisinopril 40 mg Tablet 40 mg PO DAILY escitalopram oxalate [Lexapro] 20 mg Tablet 20 mg PO DAILY amlodipine 5 mg Tablet 5 mg PO DAILY 30 Days Qty: 30 0RF ferrous sulfate [FeroSul] 325 mg (65 mg iron) tablet 325 mg PO DAILY Referrals / Follow Up: Care Physician,No Primary [Primary Care Provider] - Disposition Disposition (needs filled in before D/C Order can be placed): Psychiatric Hospital or Unit Charges/Coding Visit Charges Inpatient E&M: 98665 Disch Hosp >30min
--- NOTE | 2023-03-22 12:10 | NURSING ---
Called report to nurse Franks at [facility]. [phone] ext [phone]. She asked that we call once we get transportation set up.
--- NOTE | 2023-03-22 12:12 | NURSING ---
Pt was walking in hallways with suicide sitter Jael BRINK and she called this nurse over to inform me that he was getting a little worked up again and demanding answers on what was going on. I informed pt I was working on getting some answers. Cedric the addiction worker went in to talk with pt and calm him down. He sat down and was calm for a little while. After about 30 min Jael BRINK requested me to come back into the room. Pt was agitated and requesting answers and said that he will not be getting on a stretcher and he dares them to try. This nurse informed the charge nurse Iliana Anthony. She called the warehouse packer Jelly Valadez to inform him of pt behavior. Also texted the Dr who was caring for the pt today Dr. Davidson requesting that he come to floor to see the pt. The refused stating taht he would just tell him he has been pink slipped and not like to hear that causing more agitation. Pastor Valdovinos up to the room to talk with pt along with king Dinh.
--- NOTE | 2023-03-22 12:41 | CHAPLAIN ---
Type of Pastoral Visit __x_ Initial Visit ___ Follow-up Visit ___ On-call Visit ___ General Patient Visit ___ Spiritual Assessment ___ Family Conference ___ Bereavement ___ Rapid Response ___ Code Blue ___ Other (describe below) Pastoral Care Referral From _x__ Patient ___ Family ___ Nurse ___ Physician ___ Travel Registered Nurse Icu ___ Website Developer ___ Other (describe below) Sacrament/Intervention _x__ Active listening ___ Anointing ___ Temple ___ Bereavement ___ Communion _x__ Minnie exploration ___ _x__ Life review _x__ Prayer ___ Reconciliation ___ Sacrament of Sick _x__ Supportive presence ___ Wedding ___ Other (describe below) Pastoral Comments patient requested to talk with this fruit culler; RN contacted this fruit culler; pt is walking the halls when fruit culler arrived and he has a sitter with him; pt welcomed this fruit culler and together entered his room; pt states that he is upset at being pink slipped and is clastrophic and angry; however, pt does not raise his voice or does not show any aggressions or temper; pt talks about his desire for alcohol; HRO and security arrive to check on patient and a good conversation about pink slip rules takes place; pt agrees to terms of pink slip and is calm; pt opens up to this fruit culler about his life and identifies himself as a believer in [place] that just has to have drink to numb the pain in his head and heart; pt is connected with a local [place] called [facility]; HRO returns to announce transfer plans for psych consult and pt agrees that this is good; pt continues to talk in general terms about his pains and wounds; pt welcomes prayer and presence for support;
--- NOTE | 2023-03-22 12:57 | NURSING ---
pt left on cot with physician's ambulance. escorted by VAN Donald
== END 2023-03-22 12:59 | DRG 897 ==
LOC: ED 19:02 → MS3 03-18 12:38
PROVIDERS: Emergency Medicine; Admitting Provider Internal Medicine; Emergency Provider Student in an Organized Health Care Education/Training Program; Visit Provider Internal Medicine
DX: F10.239 Alcohol dependence with withdrawal, unspecified (principal); R45.851 Suicidal ideations; Z68.42 Body mass index [BMI] 45.0-49.9, adult; E66.01 Morbid (severe) obesity due to excess calories; I10 Essential (primary) hypertension; F12.90 Cannabis use, unspecified, uncomplicated; E03.9 Hypothyroidism, unspecified; Z87.891 Personal history of nicotine dependence; Z59.00 Homelessness unspecified; Y90.6 Blood alcohol level of 120-199 mg/100 ml
CPT/HCPCS: 36415; 80048; 80076; 80307; 81001; 82077; 85025; 87811; 93005; 96361; 96374; 99284; J7030; A4216

== ENCOUNTER 2023-04-14 20:58 | Emergency (ER) | payer SELFPAY ==
[2023-04-14 20:59] VITALS: BP 116/64; PULSE 115; RESP 18; TEMP 37.5; O2SAT 92
[2023-04-14 21:04] VITALS: BMI 44.9
--- NOTE | 2023-04-14 21:32 | EX.ED.DYSGE1 ---
HPI History of Present Illness Chief Complaint: Suicidal Narrative Narrative: Patient presents quite intoxicated. He tells me he drank at least 15 tall boys of 8% alcohol 24 ounces each. He also tells me he is homicidal he wants to kill people but he cannot give me any specifics. He tells me he is not suicidal. Otherwise he is slurring his words and is difficult to understand and he cannot give me a reasonable history or review of systems. [facility] Medical History Alcohol abuse Alcohol withdrawal Anxiety and depression Cannabis use disorder Hypertension Hypothyroidism Morbid obesity Home Medications escitalopram oxalate 20 mg tablet (Lexapro) 20 mg PO DAILY depression 06/23/22 [History Last Taken 06/21/22] levothyroxine 150 mcg tablet 150 mcg PO DAILY thyroid 06/23/22 [History Last Taken 06/21/22] lisinopril 40 mg tablet 40 mg PO DAILY HTN 06/23/22 [History Last Taken 06/21/22] pantoprazole 40 mg tablet,delayed release (Protonix) 40 mg PO DAILY GERD 06/23/22 [History Last Taken 06/21/22] amlodipine 5 mg tablet 5 mg PO DAILY 30 days #30 tabs 08/04/22 [Rx Last Taken Unknown] ferrous sulfate 325 mg (65 mg iron) tablet (FeroSul) 325 mg PO DAILY 03/18/23 [History Last Taken Unknown] hydroxyzine pamoate 50 mg capsule (Vistaril) 50 mg PO BID 04/14/23 [History Last Taken Unknown] Allergy/AdvReac Type Severity Reaction Status Date / Time haloperidol [From Haldol] AdvReac Other Verified 03/17/23 18:50 Family History Father Diabetes Mother CAD (coronary artery disease) Surgical History History of appendectomy Social History housing: homeless Smoking Status: Former smoker how long ago did patient quit smoking: Reports quitting in 2016, prior to this 1 ppd since teen until quit. alcohol intake: current Previous attempts at quittin details: Reports currently 12-19 tall boys daily. substance use type: marijuana ROS ROS ED Review of Systems ROS Unobtainable: due to mental status EXAM Physical Exam Narrative Exam Narrative: Physical exam General: Patient is unkept. He appears intoxicated Head: Normocephalic, I examined there is no signs of trauma. Eyes: Conjunctiva not pale ENT: Smell of fermentation on his breath Neck: No C-spine tenderness Cardiovascular: Regular rate, Regular rhythm Respiratory: Coarse bilateral breath sounds no respiratory distress Abdomen: Soft, Nontender, Nondistended Back: Nontender, Normal Inspection. Negative for: CVA tenderness Extremities: Nontender, No edema Skin: Normal color, No rash Neurological: Alert, he has no focal deficits although he only answers some questions Const Vital Signs: 04/14/23 20:59 Temperature 99.5 F H Temperature Source Temporal Pulse Rate 115 H Respiratory Rate 18 Blood Pressure 116/64 Blood Pressure Mean 81 Pulse Ox 92 Oxygen Delivery Method Room Air MDM MDM MDM Narrative Medical decision making narrative: Patient will need to be sober before he reevaluated for homicidal tendencies, he will be observed in the hospital overnight. Blood work alcohol level and urinalysis were ordered. We will continue to observe him frequently. He will be turned over to the oncoming ED physician. Discharge Plan Triage Chief Complaint: Suicidal ED Provider: Josafat Jasso Dx/Rx/DC Orders Clinical Impression: Alcohol abuse, History of depression, Alcohol intoxication, Homicidal ideation Prescriptions: No Action pantoprazole [Protonix] 40 mg Tablet,Delayed Release (Dr/Ec) 40 mg PO DAILY levothyroxine 150 mcg Tablet 150 mcg PO DAILY lisinopril 40 mg Tablet 40 mg PO DAILY escitalopram oxalate [Lexapro] 20 mg Tablet 20 mg PO DAILY amlodipine 5 mg Tablet 5 mg PO DAILY 30 Days Qty: 30 0RF ferrous sulfate [FeroSul] 325 mg (65 mg iron) tablet 325 mg PO DAILY hydroxyzine pamoate [Vistaril] 50 mg Capsule 50 mg PO BID Primary Care Provider: Care Physician,No Primary Referrals: Care Physician,No Primary [Primary Care Provider] -
[2023-04-14 21:51] LABS: Absolute Lymphocyte Count 1.67 X10^3/uL (0.83-4.51); Absolute Neutrophil Count 4.1 X10^3/uL (2.0-7.7); Basophil# 0.07 X10^3/uL; Basophil% 1.1 % (0-1); Eosinophil# 0.29 X10^3/uL; Eosinophils% 4.5 % (0-5); Hematocrit 35.2 % (40-54); Hemoglobin 10.5 g/dL (13.0-16.5); Lymphocyte # 1.67 X10^3/ul (0.83-4.51); Lymphocyte % 25.7 % (19-41); Mean Corp Hgb Conc 29.8 g/dL (32-36); Mean Corpuscular Hgb 22.2 pg (27.0-32.0); Mean Corpuscular Volume 74.4 fL (80-94); Mean Platelet Vol. 9.1 fl (6.2-12.0); Monocyte# 0.37 X10^3/uL; Monocyte% 5.7 % (0-10); NRBC Flagged by Analyzer 0 % (0-5); Neutrophil # 4.07 X10^3/uL (2.7-7.7); Neutrophil % 62.7 % (47-70); Platelet Count 265 K/mm3 (150-450); RBC Distribution Width CV 17.4 % (11.6-14.6); RBC Distribution Width SD 46.5 fl (35.1-43.9); Red Blood Count 4.73 M/mm3 (4.6-6.2); White Blood Count 6.5 K/mm3 (4.4-11.0)
[2023-04-14 22:00] VITALS: RESP 16
[2023-04-14 22:03] LABS: Anion Gap 11 (5-15); BUN 7 mg/dL (7-18); BUN/Creat Ratio 7.7 RATIO (10-20); Calcium,Total 8.6 mg/dL (8.5-10.1); Chloride 101 mmol/L (98-107); Creatinine, Serum 0.91 mg/dL (0.70-1.30); EST Glomerular Filtration Rate 96 mL/min (>60); Est Glom Filt Rate - Afr Amer 117 mL/min (>60); Estimated Creatinine Clearance 129.83 ml/min; Glucose 117 mg/dL (74-106); Potassium 3.2 mmol/L (3.5-5.1); Sodium Level 139 mmol/L (136-145)
[2023-04-15 00:59] VITALS: RESP 16
[2023-04-15 01:53] VITALS: RESP 18
[2023-04-15 03:45] VITALS: RESP 18
[2023-04-15 06:15] VITALS: BP 114/60; PULSE 75
[2023-04-15] MEDS: LORazepam 2 MG/ML Syringe IM (06:15)
--- NOTE | 2023-04-15 06:34 | ED.RN ---
patient refusing to stay any longer, patient signes out AMA
[2023-04-15 06:37] LABS: Amphetamine Urine VISTA NEGATIVE (<1000 ng/mL); Barbiturate Urine VISTA POSITIVE (< 200 ng/mL); Benzodiazepine Urine VISTA POSITIVE (< 200 ng/mL); Cocaine Urine VISTA NEGATIVE (< 300 ng/mL); Ecstacy Urine VISTA NEGATIVE (< 500 ng/mL); Methadone Urine VISTA NEGATIVE (< 300 ng/mL); PCP Urine VISTA NEGATIVE (< 25 ng/mL); THC Urine VISTA POSITIVE (< 50 ng/mL); Vista UDS pH Range 5
== END 2023-04-15 06:36 | disposition left against medical advice (07) ==
PROVIDERS: Emergency Provider Emergency Medicine; Visit Provider Emergency Medicine
DX: F10.129 Alcohol abuse with intoxication, unspecified (principal); Z59.00 Homelessness unspecified; Z87.891 Personal history of nicotine dependence; I10 Essential (primary) hypertension; F32.A Depression, unspecified; R45.850 Homicidal ideations; Z79.899 Other long term (current) drug therapy; E03.9 Hypothyroidism, unspecified; Z90.49 Acquired absence of other specified parts of digestive tract
CPT/HCPCS: 80048; 80307; 82077; 85025; 96372; 99285

== ENCOUNTER 2023-04-15 14:43 | Emergency (ER) | payer SELFPAY ==
[2023-04-15 14:44] VITALS: BP 140/77; PULSE 99; RESP 22; TEMP 36.6; O2SAT 92; BMI 44.4
[2023-04-15 14:47] VITALS: BP 140/77; PULSE 100; RESP 20; TEMP 36.6; O2SAT 95
--- NOTE | 2023-04-15 15:16 | EDS_ITS ---
HPI History of Present Illness Chief Complaint: ETOH Intox Informant: patient Narrative Narrative: Patient states I drink too much EtOH today and having inappropriate thoughts. States he is having thoughts of killing people, he started about specific people that are not around here, but then he states I have the means. When asked what he means, he states his family are [place]. He denies suicidal ideation. He was found lying in the middle of the road by EMS or a bystander, he says he does not remember that, does not feel like he is injured or hurt and denies any symptoms except for some nausea. He denies using any other drugs. [facility] Medical History Alcohol abuse Alcohol abuse Alcohol withdrawal Anxiety and depression Cannabis use disorder Hypertension Hypothyroidism Morbid obesity Home Medications escitalopram oxalate 20 mg tablet (Lexapro) 20 mg PO DAILY depression 06/23/22 [History Last Taken 06/21/22] levothyroxine 150 mcg tablet 150 mcg PO DAILY thyroid 06/23/22 [History Last Taken 06/21/22] lisinopril 40 mg tablet 40 mg PO DAILY HTN 06/23/22 [History Last Taken 06/21/22] pantoprazole 40 mg tablet,delayed release (Protonix) 40 mg PO DAILY GERD 06/23/22 [History Last Taken 06/21/22] amlodipine 5 mg tablet 5 mg PO DAILY 30 days #30 tabs 08/04/22 [Rx Last Taken Unknown] ferrous sulfate 325 mg (65 mg iron) tablet (FeroSul) 325 mg PO DAILY 03/18/23 [History Last Taken Unknown] hydroxyzine pamoate 50 mg capsule (Vistaril) 50 mg PO BID 04/14/23 [History Last Taken Unknown] Allergy/AdvReac Type Severity Reaction Status Date / Time haloperidol [From Haldol] AdvReac Other Verified 03/17/23 18:50 Family History Father Diabetes Mother CAD (coronary artery disease) Surgical History History of appendectomy Social History housing: homeless Smoking Status: Former smoker how long ago did patient quit smoking: Reports quitting in 2016, prior to this 1 ppd since teen until quit. alcohol intake: current Previous attempts at quittin details: Reports currently 12-19 tall boys daily. substance use type: marijuana ROS ROS ED Constitutional Constitutional ED: Denies chills or fever(s) Eyes Eyes: Denies change in vision or diplopia ENT ENT ED: Denies rhinorrhea or sore throat Cardiovascular Cardiovascular: Denies chest pain or palpitations Respiratory/Chest Respiratory/Chest: Denies cough or dyspnea Gastrointestinal Gastrointestinal: Reports nausea; Denies abdominal pain, diarrhea or vomiting Genitourinary Genitourinary ED: Denies dysuria or hematuria Musculoskeletal Musculoskeletal: Denies back pain or neck pain Integumentary Denies abscess or rash Neurologic Neurologic: Denies headache(s), paresthesias or weakness Psychiatric Psychiatric: Reports homicidal ideation; Denies anxiety or suicidal ideation EXAM Physical Exam Const Vital Signs: 04/15/23 14:44 04/15/23 14:47 Temperature 97.8 F 97.8 F Temperature Source Temporal Temporal Pulse Rate 99 100 Respiratory Rate 22 H 20 H Blood Pressure 140/77 H 140/77 H Blood Pressure Mean 98 98 Blood Pressure Source Monitor Blood Pressure Position Supine Blood Pressure Location Left Arm Pulse Ox 92 95 Oxygen Delivery Method Room Air Room Air Positive well nourished and well developed Constitutional Narrative: Intoxicated. Mostly cooperative and redirectable. A little bit paranoid. General Appearance ED: well developed and NAD HEENT Reports moist mucous membranes normocephalic and atraumatic Eyes PERRL and EOMs intact bilaterally Neck full ROM and supple Resp normal respiratory effort and clear to auscultation bilaterally Cardio regular rate, regular rhythm and no murmurs Rate: Negative for tachycardic GI non-tender and non-distended Auscultation: normoactive bowel sounds Palpation: soft Back/Spine no CVA tenderness General Back: other FROM Extremity normal to inspection General Extremety ED: Negative for edema, pulses abnormal or tenderness General Extremity: Negative for edema or pulses abnormal Neuro oriented x3, CN's II-XII intact bilaterally and no sensory deficits noted Neuro Narrative: Normal gait although slow Sensorium / Orientation: awake and alert Motor Exam: strength 5/5 throughout Psych thought process normal Psych Narrative: Intoxicated Skin no rashes or lesions noted and no wounds MDM MDM MDM Narrative Medical decision making narrative: Patient clearly intoxicated. He did give us urine specimen, which was reviewed. However he refused to allow lab to draw his blood. He was observed here for about 6.5 hours. He then got up and wanted to leave. I reevaluated him. He said he is not homicidal, he states that with the alcohol talking, he has no thoughts of harming anyone or himself and wants to leave. He is walking without ataxia, he understands the risk of injury if he decides to leave on his own accord due to intoxication, and refuses to stay any longer. He left prior to discharge. Lab Data Attestation: I reviewed the patient's lab results. Labs: Laboratory Results - last 24 hr 04/15/23 15:40 Urine Opiates Screen NEGATIVE Urine Methadone Screen NEGATIVE Ur Barbiturates Screen POSITIVE H Ur Phencyclidine Scrn NEGATIVE Ur Amphetamines Screen NEGATIVE MDMA (Ecstasy) Screen NEGATIVE U Benzodiazepines Scrn NEGATIVE Urine Cocaine Screen NEGATIVE U Cannabinoids Screen POSITIVE H Ur Drug Screen Comment Discharge Plan Triage Chief Complaint: ETOH Intox ED Provider: Kyle Miller Dx/Rx/DC Orders Clinical Impression: Alcohol intoxication Prescriptions: No Action pantoprazole [Protonix] 40 mg Tablet,Delayed Release (Dr/Ec) 40 mg PO DAILY levothyroxine 150 mcg Tablet 150 mcg PO DAILY lisinopril 40 mg Tablet 40 mg PO DAILY escitalopram oxalate [Lexapro] 20 mg Tablet 20 mg PO DAILY amlodipine 5 mg Tablet 5 mg PO DAILY 30 Days Qty: 30 0RF ferrous sulfate [FeroSul] 325 mg (65 mg iron) tablet 325 mg PO DAILY hydroxyzine pamoate [Vistaril] 50 mg Capsule 50 mg PO BID Primary Care Provider: Care Physician,No Primary Referrals: Care Physician,No Primary [Primary Care Provider] - Disposition Disposition: Home, Self Care
[2023-04-15 16:22] LABS: Amphetamine Urine VISTA NEGATIVE (<1000 ng/mL); Barbiturate Urine VISTA POSITIVE (< 200 ng/mL); Benzodiazepine Urine VISTA NEGATIVE (< 200 ng/mL); Cocaine Urine VISTA NEGATIVE (< 300 ng/mL); Ecstacy Urine VISTA NEGATIVE (< 500 ng/mL); Methadone Urine VISTA NEGATIVE (< 300 ng/mL); PCP Urine VISTA NEGATIVE (< 25 ng/mL); THC Urine VISTA POSITIVE (< 50 ng/mL); Vista UDS pH Range 5
--- NOTE | 2023-04-15 21:16 | ED.RN ---
patients blood work obtained, upon walking up patient woke up and became angry and upset with staff. HRO called to the room at this time. Patient demanding to leave. patient pushing staff to leave at this time. Dr. Miller in to see patient and patient can be discharged at this time due to denying all listed complaints earlier. patient walked out of the department by king sheffield.
[2023-04-15 21:23] LABS: Anion Gap 10 (5-15); BUN 7 mg/dL (7-18); BUN/Creat Ratio 8.4 RATIO (10-20); Calcium,Total 8.4 mg/dL (8.5-10.1); Chloride 103 mmol/L (98-107); Creatinine, Serum 0.84 mg/dL (0.70-1.30); EST Glomerular Filtration Rate 107 mL/min (>60); Est Glom Filt Rate - Afr Amer 129 mL/min (>60); Estimated Creatinine Clearance 140.65 ml/min; Glucose 97 mg/dL (74-106); Potassium 5.3 mmol/L (3.5-5.1); Sodium Level 137 mmol/L (136-145)
== END 2023-04-15 21:19 | disposition home or self-care (01) ==
PROVIDERS: Emergency Provider Emergency Medicine; Visit Provider Emergency Medicine
DX: F10.129 Alcohol abuse with intoxication, unspecified (principal); I10 Essential (primary) hypertension; Z59.00 Homelessness unspecified; Z87.891 Personal history of nicotine dependence; E03.9 Hypothyroidism, unspecified; Z79.899 Other long term (current) drug therapy; F41.8 Other specified anxiety disorders; Z90.49 Acquired absence of other specified parts of digestive tract
CPT/HCPCS: 36415; 80048; 80307; 82077; 87811; 99285; A4216

== ENCOUNTER 2023-04-16 17:14 | Emergency (ER) | payer SELFPAY ==
[2023-04-16 17:14] VITALS: BP 143/97; PULSE 95; RESP 16; TEMP 36.2; O2SAT 95; BMI 46.2
--- NOTE | 2023-04-16 17:23 | EDS_ITS ---
HPI History of Present Illness Chief Complaint: Substance Abuse Narrative Narrative: Patient is quite intoxicated, he has a history of alcohol dependence, he is here because he has improper thoughts I saw him 2 days ago with similar symptoms. He did have a full work-up at that time. Today he has similar symptoms he has no trauma history. He says he is homicidal but does not name anyone that he wants to hurt. [facility] Medical History Alcohol abuse Alcohol abuse Alcohol withdrawal Anxiety and depression Cannabis use disorder Hypertension Hypothyroidism Morbid obesity Home Medications escitalopram oxalate 20 mg tablet (Lexapro) 20 mg PO DAILY depression 06/23/22 [History Last Taken 06/21/22] levothyroxine 150 mcg tablet 150 mcg PO DAILY thyroid 06/23/22 [History Last Taken 06/21/22] lisinopril 40 mg tablet 40 mg PO DAILY HTN 06/23/22 [History Last Taken 06/21/22] pantoprazole 40 mg tablet,delayed release (Protonix) 40 mg PO DAILY GERD 06/23/22 [History Last Taken 06/21/22] amlodipine 5 mg tablet 5 mg PO DAILY 30 days #30 tabs 08/04/22 [Rx Last Taken Unknown] ferrous sulfate 325 mg (65 mg iron) tablet (FeroSul) 325 mg PO DAILY 03/18/23 [History Last Taken Unknown] hydroxyzine pamoate 50 mg capsule (Vistaril) 50 mg PO BID 04/14/23 [History Last Taken Unknown] Allergy/AdvReac Type Severity Reaction Status Date / Time haloperidol [From Haldol] AdvReac Other Verified 03/17/23 18:50 Family History Father Diabetes Mother CAD (coronary artery disease) Surgical History History of appendectomy Social History housing: homeless Smoking Status: Former smoker how long ago did patient quit smoking: Reports quitting in 2016, prior to this 1 ppd since teen until quit. alcohol intake: current Previous attempts at quittin details: Reports currently 12-19 tall boys daily. substance use type: marijuana ROS ROS ED ROS Narrative Past medical history: Reviewed Medications: Reviewed Social history: Noncontributory Review of systems: Somewhat limited secondary to his intoxication General: He is denying fever Eyes: He tells me he has no vision changes Neck: No neck pain Cardiovascular: No chest pain Respiratory: No shortness of breath or cough Gastrointestinal: No abdominal pain, nausea vomiting or diarrhea Musculoskeletal: Denies any muscle aches Neurological: No focal weakness EXAM Physical Exam Narrative Exam Narrative: Physical exam General: Patient is clearly intoxicated, slurring his speech. He is unkept Head: Normocephalic, Atraumatic Eyes: Conjunctiva not pale ENT: Moist mucous membranes. Smell of fermentation of breath Neck: Supple, Nontender, No lymphadenopathy Cardiovascular: Regular rate, Regular rhythm Respiratory: No distress, CTA bilaterally Abdomen: Soft, Nontender, Nondistended Back: Nontender, Normal Inspection. Negative for: CVA tenderness Extremities: Nontender, No edema Skin: Normal color, No rash Neurological: Alert, he is oriented x3 he is slurring speech. He is confused to minor details normal Strength, Normal Sensation Psychological: Again tells me he is suicidal and homicidal however he cannot give me any further details. Const Vital Signs: 04/16/23 17:14 Temperature 97.1 F L Temperature Source Temporal Pulse Rate 95 Respiratory Rate 16 Blood Pressure 143/97 H Blood Pressure Mean 112 Pulse Ox 95 Oxygen Delivery Method Room Air MDM MDM MDM Narrative Medical decision making narrative: Patient is acutely intoxicated as demonstrated by him as well as blood alcohol level. As before we will observe him at this time he does not want detox. After he is done being intoxicated his modus operandi is that he is no longer suicidal or homicidal, that his the plan today and we will observe until sober. Will be turned over to the ED doctor. There is no evidence of trauma, patient does not meet criteria for head CT I did reevaluate him he has an old scar over the back of his head but this is 2 weeks old, he has no history of falling today. There is no reason for any further blood work since he had blood work 2 days ago when I saw him and it was unremarkable other than his alcohol level. Lab Data Labs: Laboratory Results - last 24 hr 04/16/23 18:30 Ethyl Alcohol 183.0 Discharge Plan Triage Chief Complaint: Substance Abuse ED Provider: Josafat Jasso Dx/Rx/DC Orders Clinical Impression: Alcohol abuse, History of depression, Alcohol intoxication, Homicidal ideation Prescriptions: No Action pantoprazole [Protonix] 40 mg Tablet,Delayed Release (Dr/Ec) 40 mg PO DAILY levothyroxine 150 mcg Tablet 150 mcg PO DAILY lisinopril 40 mg Tablet 40 mg PO DAILY escitalopram oxalate [Lexapro] 20 mg Tablet 20 mg PO DAILY amlodipine 5 mg Tablet 5 mg PO DAILY 30 Days Qty: 30 0RF ferrous sulfate [FeroSul] 325 mg (65 mg iron) tablet 325 mg PO DAILY hydroxyzine pamoate [Vistaril] 50 mg Capsule 50 mg PO BID Primary Care Provider: Care Physician,No Primary Referrals: Care Physician,No Primary [Primary Care Provider] -
--- NOTE | 2023-04-16 18:49 | ED.RN ---
PT CONTINUING TO SLAM ROOM DOOR. CALLING CHARGE NURSE WORTHLESS BITCH, STUPID LILLYT.
--- NOTE | 2023-04-16 18:51 | ED.RN ---
PT IS STANDING IN THE DOORWAY OF HIS ROOM GETTING ANGRY WITH STAFF BECAUSE HE WANTS SOMETHING BUT WILL NOT SAY WHAT IT IS THAT HE WANTS. PT THEN WENT BACK INTO HIS ROOM AND SLAMMED THE DOOR THEN PROCEEDED TO CALL STAFF BITCHES. HE THEN STOOD AT THE DOOR AGAIN AND STARED AT THIS NURSE THROUGH THE WINDOW. THIS NURSE WAS ON THE PHONE , HE THEN CAME OUT INTO THE HALLWAY AND STARTED CALLING THIS NURSE A CUNT AND CONTINUE TALKING. THIS NURSE WAS UNABLE TO HEAR EVERYTHING SAID BECAUSE I WAS ON THE PHONE. PT WENT BACK INTO HIS ROOM AND SLAMMED THE DOOR AGAIN. ANOTHER NURSE WENT AND TOLD PT HE IS NOT TO SLAM HIS DOOR AND IS TO STAY IN HIS ROOM. HRO WAS NOTIFIED OF PTS BEHAVIOR
[2023-04-16 19:17] VITALS: PULSE 96; RESP 16; O2SAT 95
[2023-04-16 20:00] VITALS: PULSE 96; RESP 16; O2SAT 95
[2023-04-16 21:00] VITALS: PULSE 95; RESP 16; O2SAT 96
[2023-04-16 22:00] VITALS: BP 142/90; PULSE 96; RESP 16; O2SAT 96
[2023-04-16 23:00] VITALS: PULSE 92; RESP 16; O2SAT 96
[2023-04-17] VITALS (9 sets, daily range): BP systolic 146–156; BP diastolic 78–98; PULSE 78–98; RESP 16; O2SAT 96–98
[2023-04-17] MEDS: Ziprasidone IM 20 MG/ML VIAL IM (01:59)
[2023-04-17] MEDS: Phenobarbital 32.4 MG Tablet 97.2 MG PO ×2 (02:02→06:48)
--- NOTE | 2023-04-17 02:40 | NURSING ---
IV attempted x2, unsuccessful. Pt new refusing IV. Dr notified.
--- NOTE | 2023-04-17 02:52 | ED.RN ---
GOMEZ WITH CRISIS SAID PT PENDING AT [facility].
--- NOTE | 2023-04-17 05:06 | ED.RN ---
attempt to start ivx3 and unsuccessful.pt verbally abusive to staff. pt kept growling like a bear. and yelling.Dr oMsley made aware that this nurse did not get the iv,asked for an injection because the pt swears he will go in to withdrawals and , no one gives a shit!. order recieved.
== END 2023-04-17 15:09 | disposition left against medical advice (07) ==
PROVIDERS: Emergency Medicine; Emergency Provider Student in an Organized Health Care Education/Training Program; Visit Provider Student in an Organized Health Care Education/Training Program
DX: F32.A Depression, unspecified (principal); F10.129 Alcohol abuse with intoxication, unspecified; Z87.891 Personal history of nicotine dependence; Z59.00 Homelessness unspecified; I10 Essential (primary) hypertension; Y90.6 Blood alcohol level of 120-199 mg/100 ml; R45.850 Homicidal ideations; Z79.899 Other long term (current) drug therapy; E03.9 Hypothyroidism, unspecified; F41.9 Anxiety disorder, unspecified; Z90.49 Acquired absence of other specified parts of digestive tract
CPT/HCPCS: 36415; 82077; 96372; 96374; 99285; A4216; J3486

== ENCOUNTER 2023-04-18 05:25 | Emergency (ER) | payer SELFPAY ==
[2023-04-18 05:26] VITALS: BP 146/93; PULSE 113; RESP 22; TEMP 36; O2SAT 99; BMI 43.2
[2023-04-18] MEDS: chlordiazePOXIDE 25 MG Capsule 50 MG PO (05:46)
--- NOTE | 2023-04-18 05:58 | ED.RN ---
Pt aggressive and yelling at staff since arrival. Pt received librium and walked to bathroom with a steady gait. Pt walked out of bathroom and stated, See ya and walked quickly toward doors. Dr. Martins aware of pt leaving ER. Security notified as well.
--- NOTE | 2023-04-18 05:59 | EDS_ITS ---
HPI History of Present Illness Chief Complaint: ETOH Intox Informant: patient and EMS Narrative Narrative: Patient is a 42-year-old male with past medical history of alcohol abuse/dependence and cannabis use disorder. He was picked up by police secondary to trespassing and taken to correction. Reportedly while in correction he began having shakes and there was concern that he was going to alcohol withdrawal so therefore EMS was called and patient was brought to the hospital for evaluation. [facility] Medical History Alcohol abuse Alcohol abuse Alcohol withdrawal Anxiety and depression Cannabis use disorder Hypertension Hypothyroidism Morbid obesity Home Medications escitalopram oxalate 20 mg tablet (Lexapro) 20 mg PO DAILY depression 06/23/22 [History Last Taken 06/21/22] levothyroxine 150 mcg tablet 150 mcg PO DAILY thyroid 06/23/22 [History Last Taken 06/21/22] lisinopril 40 mg tablet 40 mg PO DAILY HTN 06/23/22 [History Last Taken 06/21/22] pantoprazole 40 mg tablet,delayed release (Protonix) 40 mg PO DAILY GERD 06/23/22 [History Last Taken 06/21/22] amlodipine 5 mg tablet 5 mg PO DAILY 30 days #30 tabs 08/04/22 [Rx Last Taken Unknown] ferrous sulfate 325 mg (65 mg iron) tablet (FeroSul) 325 mg PO DAILY 03/18/23 [History Last Taken Unknown] hydroxyzine pamoate 50 mg capsule (Vistaril) 50 mg PO BID 04/14/23 [History Last Taken Unknown] Allergy/AdvReac Type Severity Reaction Status Date / Time haloperidol [From Haldol] AdvReac Other Verified 03/17/23 18:50 Family History Father Diabetes Mother CAD (coronary artery disease) Surgical History History of appendectomy Social History housing: homeless Smoking Status: Former smoker how long ago did patient quit smoking: Reports quitting in 2016, prior to this 1 ppd since teen until quit. alcohol intake: current Previous attempts at quittin details: Reports currently 12-19 tall boys daily. substance use type: marijuana ROS ROS ED Review of Systems ROS Unobtainable: other Details: Unable to obtain review of systems as patient is uncooperative EXAM Physical Exam Const Vital Signs: 04/18/23 05:26 Temperature 96.8 F L Temperature Source Temporal Pulse Rate 113 H Respiratory Rate 22 H Blood Pressure 146/93 H Blood Pressure Mean 110 Pulse Ox 99 Oxygen Delivery Method Room Air Positive well nourished, well developed and obese General Appearance ED: well developed Nutritional Appearance: obese HEENT Reports moist mucous membranes HEENT Narrative: No tongue or cheek biting to suggest seizure activity Eyes EOMs intact bilaterally Eyes Narrative: There is mild scleral injection and pupils are slightly dilated and sluggish to respond consistent with alcohol use Neck supple Neck Narrative: No nuchal rigidity or meningeal signs Resp normal respiratory effort and clear to auscultation bilaterally Cardio regular rate and regular rhythm GI normal to inspection, nondistended, normoactive bowel sounds, non-tender, non- distended and no masses GI Narrative: No ascites or fluid wave noted Auscultation: normoactive bowel sounds Palpation: soft Extremity normal to inspection Neuro oriented x3, CN's II-XII intact bilaterally and no sensory deficits noted Sensorium / Orientation: alert Psych Psych Narrative: Patient has a depressed and hostile affect Skin no rashes or lesions noted MDM MDM MDM Narrative Medical decision making narrative: Patient presented to the ER moaning and shaking however this appeared voluntary in nature as he had no tongue or cheek biting his is a seizure activity and he is in no respiratory distress satting 99 to 100% on room air. He reported to been 18 hours since his last drink and chart review does reveal that his last alcohol value was 58. With concern that it could be early withdrawal I did elect to order an alcohol level. However there is physical exam evidence such as the deliberate shaking and moaning but normal mental status without respiratory distress or tongue or cheek biting to suggest this is most likely malingering or need for secondary gain. Therefore I felt no need for Ativan injections but ordered a oral Librium. Prior to receiving the medication the patient was informed that please or not requesting that he return to correction. After hearing this the voluntary moaning and shaking stopped the patient was able to ambulate to and from the bathroom with a steady gait. Vitals remained stable. This changed to his physical exam/status indicates this was malingering and I will apply to get out of correction as there was no true withdrawals as they resolve spontaneously without any type of medication. The patient then stated he did not want to be in the hospital any longer and he is going to leave and as he is not homicidal or suicidal and now can ambulate with a steady gait I do not feel there is need for further evaluation and he was informed he is able to do this and will be discharged History & Record Review Discussion w/independent historian: EMS personnel and Patient Discharge Plan Triage Chief Complaint: ETOH Intox ED Provider: Malvin Martins Dx/Rx/DC Orders Clinical Impression: Alcohol abuse, Malingering Instructions: ED Alcohol Abuse Prescriptions: No Action pantoprazole [Protonix] 40 mg Tablet,Delayed Release (Dr/Ec) 40 mg PO DAILY levothyroxine 150 mcg Tablet 150 mcg PO DAILY lisinopril 40 mg Tablet 40 mg PO DAILY escitalopram oxalate [Lexapro] 20 mg Tablet 20 mg PO DAILY amlodipine 5 mg Tablet 5 mg PO DAILY 30 Days Qty: 30 0RF ferrous sulfate [FeroSul] 325 mg (65 mg iron) tablet 325 mg PO DAILY hydroxyzine pamoate [Vistaril] 50 mg Capsule 50 mg PO BID Primary Care Provider: Care Physician,No Primary Referrals: Care Physician,No Primary [Primary Care Provider] - Disposition Disposition: Home, Self Care
--- NOTE | 2023-04-19 11:08 | CM.ED ---
Social Work JENNIFER contacted by Savanah with [facility] to review referral pending with Lito Morse requesting reevaluation as patient is a frequent patient and denies SI/HI once sober. JENNIFER informed Savanah patient was d/c yesterday and was denying SI/HI at discharge. Savanah explained due to patient's history at [facility], it may be beneficial to wait to complete assessments until patient is not intoxicated or reevaluate patient once he is not intoxicated as patient denies SI/HI once he is sober. JENNIFER to review with [facility] SW team. Delia August COMPLAINT INVESTIGATIONS OFFICER, VALERIE
== END 2023-04-18 06:18 | disposition home or self-care (01) ==
PROVIDERS: Emergency Provider Emergency Medicine; Visit Provider Emergency Medicine
DX: F10.10 Alcohol abuse, uncomplicated (principal); I10 Essential (primary) hypertension; Z87.891 Personal history of nicotine dependence; E03.9 Hypothyroidism, unspecified; Z76.5 Malingerer [conscious simulation]
CPT/HCPCS: 36415; 82077; 99284

== ENCOUNTER 2023-06-06 20:15 | Emergency (ER) | payer SELFPAY ==
[2023-06-06 20:17] VITALS: BP 97/82; PULSE 124; RESP 16; TEMP 36.2; O2SAT 98; BMI 39.9
--- NOTE | 2023-06-06 20:37 | ED.RN ---
PT BROUGHT IN BY JUAN C CARMEN, PT NOT PINK SLIPPED D/T NO GROUNDS FOR PD TO PINK SLIP HIM. PT UNCOOPERATIVE FROM THE BEGINNING, STARTING IN TRIAGE. PT BROUGHT BACK TO ROOM AND ASKED TO STAY IN HIS ROOM, NOT UNTIL YOU TURN OFF THE LIGHT. THIS RN TURNED OFF THE LIGHT AND THE PT WENT INTO THE ROOM. A LITTLE WHILE LATER,PT STANDING IN DOORWAY, ASKED TO GO TO ROOM, PT REFUSED, PT ASKED AGAIN, PT STATES NO, WHAT ARE YOU GOING TO DO ABOUT IT YOU STUPID CUNT. PT ASKED MULTIPLE TIMES THE PT CAME CLOSER AND CLOSER TO THIS RN'S FACES, SNARLING WHAT ARE YOU GOING TO DO ABOUT IT. THIS RN ASKED ANOTHER STAFF MEMBER TO FIND SECURITY. PT PUT HIS SHOES ON, WALKED OUT, CALLING THIS RN MORE NAMES AND STATES ONE OF THESE DAYS YOURE GOING TO DEAL WITH MY SISTER PT ABLE TO WALK OUT ON HIS ON FREE WILL, NO DISTRESS NOTED.
== END 2023-06-06 20:49 | disposition left against medical advice (07) ==
LOC: ED 20:49
DX: R45.851 Suicidal ideations (principal)
CPT/HCPCS: 99281

== ENCOUNTER 2023-10-21 18:07 | Emergency (ER) | payer MEDICAID, SELFPAY ==
[2023-10-21 18:08] VITALS: BP 135/88; PULSE 125; RESP 18; TEMP 36.9; O2SAT 94; BMI 46.0
--- NOTE | 2023-10-21 18:26 | ED.RN ---
Patient brought in by Heraclio CARMEN for suicidal ideation and alcoholism. Patient had 4 other facility wrist bands removed, states he signed himself out of [employer] [place] today in [place] and decided to drink. Patient arrives intoxicated, cooperative. Urine collected. Patient declares SI and states he is a member of the [employer] and will go to [place] and argue with the Outlaws and they would shoot him.
[2023-10-21 19:27] LABS: Absolute Lymphocyte Count 1.39 X10^3/uL (0.83-4.51); Absolute Neutrophil Count 5.2 X10^3/uL (2.0-7.7); Basophil# 0.07 X10^3/uL; Basophil% 0.9 % (0-1); Eosinophil# 0.36 X10^3/uL; Eosinophils% 4.9 % (0-5); Hematocrit 35.7 % (40-54); Hemoglobin 10.5 g/dL (13.0-16.5); Lymphocyte # 1.39 X10^3/ul (0.83-4.51); Lymphocyte % 18.8 % (19-41); Mean Corp Hgb Conc 29.4 g/dL (32-36); Mean Corpuscular Hgb 21.8 pg (27.0-32.0); Mean Corpuscular Volume 74.1 fL (80-94); Mean Platelet Vol. 9.4 fl (6.2-12.0); Monocyte# 0.35 X10^3/uL; Monocyte% 4.7 % (0-10); NRBC Flagged by Analyzer 0 % (0-5); Neutrophil # 5.22 X10^3/uL (2.7-7.7); Neutrophil % 70.4 % (47-70); Platelet Count 294 K/mm3 (150-450); RBC Distribution Width CV 17.6 % (11.6-14.6); RBC Distribution Width SD 47.4 fl (35.1-43.9); Red Blood Count 4.82 M/mm3 (4.6-6.2); White Blood Count 7.4 K/mm3 (4.4-11.0)
--- NOTE | 2023-10-21 19:36 | ED.RN ---
Resumed care from Sherif REES. Patient admitted he was homicidal and suicidal at 1900 in front of this RN and Dr Mosley. This RN placed him in suicide precautions with a sitter.
[2023-10-21 19:45] LABS: ALB/GLOB Ratio 0.8 RATIO (0.9-2.4); AST(SGOT) 47 U/L (15-37); Alanine Aminotransfer ALT/SGPT 88 U/L (16-61); Albumin, Serum 3.4 g/dL (3.2-5.0); Alkaline Phosphatase 99 U/L (45-117); Anion Gap 4 (5-15); BUN 10 mg/dL (7-18); BUN/Creat Ratio 12.7 RATIO (10-20); Calcium,Total 8.7 mg/dL (8.5-10.1); Chloride 108 mmol/L (98-107); Creatinine, Serum 0.79 mg/dL (0.70-1.30); EST Glomerular Filtration Rate 114 mL/min (>60); Est Glom Filt Rate - Afr Amer 138 mL/min (>60); Globulin 4.2 g/dL (2.2-4.2); Glucose 93 mg/dL (74-106); Lipase 41 U/L (13-75); Potassium 4.1 mmol/L (3.5-5.1); Protein, Total 7.6 g/dL (6.4-8.2); Sodium Level 141 mmol/L (136-145)
[2023-10-21] MEDS: 0.9% Normal Saline (1000mL) 1,000 ML 999 ML IV (19:46)
--- NOTE | 2023-10-21 19:46 | EX.ED.SAOD ---
HPI History of Present Illness Chief Complaint: ETOH Intox Narrative Narrative: Patient brought in by PD for intoxication. He admits he is suicidal and homicidal. He states he feels depressed and wants to kill himself. He states he wants to go down to [place] and by assault from another biker gang. He also admits to being homicidal and wants to kill other people from the rival by cocaine. He states he is a hell of [place]. Patient states has been off alcohol for 17 days and relapsed today having 5 beers. He also wants detox. [facility] Medical History Alcohol abuse Alcohol abuse Alcohol withdrawal Anxiety and depression Cannabis use disorder Hypertension Hypothyroidism Morbid obesity Home Medications escitalopram oxalate 20 mg tablet (Lexapro) 20 mg PO DAILY depression 06/23/22 [History Last Taken 06/21/22] levothyroxine 150 mcg tablet 150 mcg PO DAILY thyroid 06/23/22 [History Last Taken 06/21/22] lisinopril 40 mg tablet 40 mg PO DAILY HTN 06/23/22 [History Last Taken 06/21/22] pantoprazole 40 mg tablet,delayed release (Protonix) 40 mg PO DAILY GERD 06/23/22 [History Last Taken 06/21/22] amlodipine 5 mg tablet 5 mg PO DAILY 30 days #30 tabs 08/04/22 [Rx Last Taken Unknown] ferrous sulfate 325 mg (65 mg iron) tablet (FeroSul) 325 mg PO DAILY 03/18/23 [History Last Taken Unknown] hydroxyzine pamoate 50 mg capsule (Vistaril) 50 mg PO BID 04/14/23 [History Last Taken Unknown] Allergy/AdvReac Type Severity Reaction Status Date / Time haloperidol [From Haldol] AdvReac Other Verified 10/21/23 18:13 Family History Father Diabetes Mother CAD (coronary artery disease) Surgical History History of appendectomy Social History housing: homeless Smoking Status: Current every day smoker tobacco type: cigarettes how long ago did patient quit smoking: Reports quitting in 2016, prior to this 1 ppd since teen until quit. alcohol intake: current Previous attempts at quittin details: Reports currently 12-19 tall boys daily. substance use type: marijuana ROS ROS ED Constitutional Constitutional ED: Denies chills, fever(s) or sweats Eyes Eyes: Denies blurry vision or change in vision ENT ENT ED: Denies ear pain or sore throat Cardiovascular Cardiovascular: Denies chest pain, palpitations or racing heartbeat Respiratory/Chest Respiratory/Chest: Denies cough, dyspnea or sputum Gastrointestinal Gastrointestinal: Denies abdominal pain, constipation, diarrhea, nausea or vomiting Genitourinary Genitourinary ED: Denies dysuria, hematuria or urinary frequency Musculoskeletal Musculoskeletal: Denies arthralgias, myalgias or neck pain Integumentary Denies abscess, Abrasions or rash Neurologic Neurologic: Denies headache(s), paresthesias or weakness Psychiatric Psychiatric: Reports anxiety, depression, suicidal ideation and suicidal thoughts Endocrine Endocrinology: Denies polydipsia or polyuria EXAM Physical Exam Const Vital Signs: 10/21/23 18:08 Temperature 98.5 F Temperature Source Oral Pulse Rate 125 H Respiratory Rate 18 Blood Pressure 135/88 H Blood Pressure Mean 103 Pulse Ox 94 Oxygen Delivery Method Room Air Positive obese and unkempt General Appearance ED: unkempt; Negative for pallor Nutritional Appearance: obese HEENT Reports moist mucous membranes atraumatic Eyes PERRL and EOMs intact bilaterally Lymph Lymphatic: no lymphadenopathy noted Resp normal respiratory effort Cardio regular rhythm Rate: tachycardic GI non-tender Neuro oriented x3 and CN's II-XII intact bilaterally Viola Coma Scale: document GCS findings Spontaneous Obeys Commands Oriented 15 Sensorium / Orientation: alert Psych mental status grossly normal Appearance: unkempt Skin General Skin Exam: Negative for jaundice or pallor MDM MDM MDM Narrative Medical decision making narrative: Patient presenting with suicidal and homicidal ideations. Patient also requesting detox. His alcohol level is 87 so he is medically cleared to see social work. CBC is at baseline. CMP shows minimal elevation in LFTs and normal renal function. Electrolytes are normal. Lipase 41. Urine drug screen positive for barbiturates. Patient states he has a history of withdrawal seizure and EtOH withdrawal however he has been clean for 17 days and only had 5 beers tonight reportedly. Does not appear to be actively withdrawing currently but he was given some Ativan. Patient awaiting crisis to come evaluate him here. He will be signed out to the incoming ED physician for monitoring until he can be placed. Impression: 1. EtOH abuse 2. Suicidal ideation 3. Homicidal ideation Lab Data Attestation: I reviewed the patient's lab results. Labs: Laboratory Results - last 24 hr 10/21/23 10/21/23 18:30 19:15 WBC 7.4 RBC 4.82 Hgb 10.5 L Hct 35.7 L MCV 74.1 L MCH 21.8 L MCHC 29.4 L RDW Std Deviation 47.4 H RDW Coeff of Nasima 17.6 H Plt Count 294 MPV 9.4 Immature Gran % (Auto) 0.300 Neut % (Auto) 70.4 H Lymph % (Auto) 18.8 L Wolfe % (Auto) 4.7 Eos % (Auto) 4.9 Baso % (Auto) 0.9 Absolute Neuts (auto) 5.2 Absolute Lymphs (auto) 1.39 Nucleated RBC % 0 Sodium 141 Potassium 4.1 Chloride 108 H Carbon Dioxide 29.0 Anion Gap 4 L BUN 10 Creatinine 0.79 Estim Creat Clear Calc 144.10 Est GFR (MDRD) Af Amer 138 Est GFR (MDRD) Non-Af 114 BUN/Creatinine Ratio 12.7 Glucose 93 Calcium 8.7 Total Bilirubin 0.10 L AST 47 H ALT 88 H Alkaline Phosphatase 99 Total Protein 7.6 Albumin 3.4 Globulin 4.2 Albumin/Globulin Ratio 0.8 L Lipase 41 Urine Opiates Screen NEGATIVE Urine Methadone Screen NEGATIVE Ur Barbiturates Screen POSITIVE H Ur Phencyclidine Scrn NEGATIVE Ur Amphetamines Screen NEGATIVE MDMA (Ecstasy) Screen NEGATIVE U Benzodiazepines Scrn NEGATIVE Urine Cocaine Screen NEGATIVE U Cannabinoids Screen NEGATIVE Ur Drug Screen Comment Ethyl Alcohol 87.0 Discharge Plan Triage Chief Complaint: ETOH Intox ED Provider: Pilo Mosley Dx/Rx/DC Orders Prescriptions: No Action pantoprazole [Protonix] 40 mg Tablet,Delayed Release (Dr/Ec) 40 mg PO DAILY levothyroxine 150 mcg Tablet 150 mcg PO DAILY lisinopril 40 mg Tablet 40 mg PO DAILY escitalopram oxalate [Lexapro] 20 mg Tablet 20 mg PO DAILY amlodipine 5 mg Tablet 5 mg PO DAILY 30 Days Qty: 30 0RF ferrous sulfate [FeroSul] 325 mg (65 mg iron) tablet 325 mg PO DAILY hydroxyzine pamoate [Vistaril] 50 mg Capsule 50 mg PO BID Primary Care Provider: Care Physician,No Primary Referrals: Care Physician,No Primary [Primary Care Provider] -
[2023-10-21] MEDS: LORazepam 2 MG/ML Syringe IV (19:47)
--- NOTE | 2023-10-21 19:48 | CM.ED ---
Social Work SW notified that patient can be assessed, alcohol level is 87. SW shift is ending soon, crisis called and information faxed. Crisis also made aware that if patient needs placement, pt has straight medicaid and will need a place that does detox as well. Pt additionally has been difficult for some facilities and may be hard to place due to history. Pt is endorsing suicidal/homicidal thoughts. Margo Cortes VETERINARY EPIDEMIOLOGIST, INSPECTOR PLUG SEAM
--- NOTE | 2023-10-21 20:22 | EKG12_ITS ---
[place] Reason : [facility] [place] Pressure : / mmHG Vent. Rate : 103 BPM Atrial Rate : 000 BPM P-R Int : 000 ms QRS Dur : 078 ms QT Int : 340 ms P-R-T Axes : 000 030 030 degrees QTc Int : 445 ms Accelerated Junctional rhythm Abnormal ECG Confirmed by ABA SAENZ MD ([id number]), make up editor ALIDA TREVIZO ([id number]) on 10/24/2023 10:41:56 AM Referred By: CHARI Confirmed By:ABA SAENZ MD
[2023-10-21 21:15] LABS: Amphetamine Urine VISTA NEGATIVE (<1000 ng/mL); Barbiturate Urine VISTA POSITIVE (< 200 ng/mL); Benzodiazepine Urine VISTA NEGATIVE (< 200 ng/mL); Cocaine Urine VISTA NEGATIVE (< 300 ng/mL); Ecstacy Urine VISTA NEGATIVE (< 500 ng/mL); Methadone Urine VISTA NEGATIVE (< 300 ng/mL); PCP Urine VISTA NEGATIVE (< 25 ng/mL); THC Urine VISTA NEGATIVE (< 50 ng/mL); Vista UDS pH Range 6
[2023-10-21 22:49] VITALS: BP 158/93; PULSE 103; RESP 18; TEMP 36; O2SAT 99
[2023-10-22] MEDS: Loperamide 2 MG Capsule 4 MG PO (01:39)
[2023-10-22] MEDS: hydrOXYzine PAM 25 MG Capsule 50 MG PO ×2 (01:40→10:33)
[2023-10-22] MEDS: Ibuprofen 600 MG Tablet PO (01:40)
[2023-10-22] MEDS: Lidocaine 5% Patch 1 PATCH TOPICAL (05:39)
[2023-10-22] MEDS: Levothyroxine 150 MCG Tablet PO (06:26)
[2023-10-22] MEDS: LORazepam 2 MG/ML Syringe 1 MG IV (08:08)
--- NOTE | 2023-10-22 10:00 | ED.RN ---
REQUESTING TO TALK WITH COUNSELOR. CALLED CRISIS THEY WILL COME IN TO REEVALUATE. PT AWARE
--- NOTE | 2023-10-22 10:27 | ED.RN ---
crisis at bedside
[2023-10-22 10:30] VITALS: BP 140/88; PULSE 115; RESP 18; O2SAT 98
[2023-10-22] MEDS: Lisinopril 40 MG Tablet PO (10:33)
[2023-10-22] MEDS: Pantoprazole Sodium 40 MG Tablet PO (10:34)
[2023-10-22] MEDS: Escitalopram Oxalate 20 MG Tablet PO (10:34)
[2023-10-22] MEDS: amLODIPine 5 MG Tablet PO (10:34)
--- NOTE | 2023-10-22 10:55 | ED.RN ---
PT AGREEABLE TO SAFETY PLAN. DR RICCI AND NELIA EVALUATED AND FEEL HE IS OKAY TO BE DISCHARGED. PT UPSET ABOUT HIS VAP PEN AND SOME OTHER ITEMS, [facility] DOES NOT HAVE PT INSISTS WE DO. CONSULTED WITH HRO OFFICER, ITEMS WERE TAKEN BY [employer], OFFICER IVONE TALKED WITH PT REGARDING HIS PROCESS FOR GETTING ITEMS BACK. AND WALKED PATIENT OUT.
== END 2023-10-22 11:00 | disposition home or self-care (01) ==
PROVIDERS: Emergency Provider Student in an Organized Health Care Education/Training Program; Visit Provider Student in an Organized Health Care Education/Training Program
DX: F41.8 Other specified anxiety disorders (principal); R45.851 Suicidal ideations; I10 Essential (primary) hypertension; F17.210 Nicotine dependence, cigarettes, uncomplicated; R45.850 Homicidal ideations; F10.10 Alcohol abuse, uncomplicated; E03.9 Hypothyroidism, unspecified; Z79.899 Other long term (current) drug therapy; Z90.49 Acquired absence of other specified parts of digestive tract
CPT/HCPCS: 80053; 80307; 82077; 83690; 85025; 93005; 96361; 96374; 96376; 99284; J7030; A4216

== ENCOUNTER 2023-10-22 19:30 | Emergency (ER) | payer MEDICAID, SELFPAY ==
[2023-10-22 19:32] VITALS: BP 138/122; PULSE 101; RESP 15; TEMP 36.3; O2SAT 97; BMI 44.9
--- NOTE | 2023-10-22 19:56 | EDS_ITS ---
HPI History of Present Illness Chief Complaint: Substance Abuse Detail of Chief Complaint: EtOH abuse, suicidal ideation Informant: patient Narrative Narrative: Patient returns to the emergency room intoxicated stating that he wants detox a nd he is suicidal. Patient was in the emergency room last evening with similar complaints. He was observed overnight and seen by crisis this morning. He was signed out on a safety plan. He states he went home and started drinking a lot of alcohol and used marijuana. He tells me that he needs a detox program. When asked specifically if he has thoughts of hurting himself he states yes. He has a plan of wanting to shoot himself. He tells me that he carries a gun around with him. [facility] Medical History Alcohol abuse Alcohol withdrawal Anxiety and depression Cannabis use disorder Hypertension Hypothyroidism Morbid obesity Home Medications escitalopram oxalate 20 mg tablet (Lexapro) 20 mg PO DAILY depression 06/23/22 [History Last Taken 06/21/22] levothyroxine 150 mcg tablet 150 mcg PO DAILY thyroid 06/23/22 [History Last Taken 06/21/22] lisinopril 40 mg tablet 40 mg PO DAILY HTN 06/23/22 [History Last Taken 06/21/22] pantoprazole 40 mg tablet,delayed release (Protonix) 40 mg PO DAILY GERD 06/23 [History Last Taken 06/21/22] amlodipine 5 mg tablet 5 mg PO DAILY 30 days #30 tabs 08/04/22 [Rx Last Taken Unknown] ferrous sulfate 325 mg (65 mg iron) tablet (FeroSul) 325 mg PO DAILY 03/18/23 [ History Last Taken Unknown] hydroxyzine pamoate 50 mg capsule (Vistaril) 50 mg PO BID 04/14/23 [History Last Taken Unknown] Allergy/AdvReac Type Severity Reaction Status Date / Time haloperidol [From Haldol] AdvReac Other Verified 10/21/23 18:13 Family History Father Diabetes Mother CAD (coronary artery disease) Surgical History History of appendectomy Social History housing: homeless Smoking Status: Current every day smoker tobacco type: cigarettes how long ago did patient quit smoking: Reports quitting in 2016, prior to this 1 ppd since teen until quit. alcohol intake: current Previous attempts at quittin details: Reports currently 12-19 tall boys daily. substance use type: marijuana ROS ROS ED Constitutional Constitutional ED: Denies chills or fever(s) Eyes Eyes: Denies discharge from eye(s) ENT ENT ED: Denies discharge from eye(s), rhinorrhea or sore throat Cardiovascular Cardiovascular: Denies chest pain Respiratory/Chest Respiratory/Chest: Denies cough or dyspnea Gastrointestinal Gastrointestinal: Denies abdominal pain, nausea or vomiting Musculoskeletal Musculoskeletal: Denies back pain or extremity pain Integumentary Denies Abrasions or rash Neurologic Neurologic: Denies headache(s) or weakness Psychiatric Psychiatric: Reports anxiety and suicidal ideation; Denies depression Allergic/Immunologic Allergic/Immunologic ED: Denies lip swelling or urticaria EXAM Physical Exam Const Vital Signs: 10/22/23 19:32 10/22/23 21:31 10/22/23 22:59 Temperature 97.3 F L 97.8 F Temperature Source Temporal Temporal Pulse Rate 101 H 101 H Respiratory Rate 15 15 15 Blood Pressure 138/122 H 129/80 H Blood Pressure Mean 127 96 Pulse Ox 97 99 Oxygen Delivery Method Room Air Room Air Room Air Positive obese Nutritional Appearance: obese HEENT Reports moist mucous membranes Eyes EOMs intact bilaterally Chest Wall inspection of chest normal and palpation of chest normal Resp normal respiratory effort and clear to auscultation bilaterally Cardio regular rate and regular rhythm GI Palpation: soft Extremity normal to inspection Neuro oriented x3 Neuro Narrative: No focal neurologic deficits. Skin no rashes or lesions noted MDM MDM MDM Narrative Medical decision making narrative: Labs for psychiatric clearance will be drawn. Patient will require observation given his apparent intoxicated state. Lab Data Attestation: I reviewed the patient's lab results. Labs: Laboratory Results - last 24 hr 10/22/23 10/22/23 19:42 20:35 WBC 8.0 RBC 4.80 Hgb 10.4 L Hct 35.6 L MCV 74.2 L MCH 21.7 L MCHC 29.2 L RDW Std Deviation 46.9 H RDW Coeff of Nasima 17.8 H Plt Count 351 MPV 9.3 Immature Gran % (Auto) 0.400 Neut % (Auto) 63.2 Lymph % (Auto) 22.6 [place] % (Auto) 7.3 Eos % (Auto) 5.6 H Baso % (Auto) 0.9 Absolute Neuts (auto) 5.0 Absolute Lymphs (auto) 1.80 Nucleated RBC % 0 Sodium 142 Potassium 4.4 Chloride 109 H Carbon Dioxide 31.0 Anion Gap 2 L BUN 6 L Creatinine 0.81 Estim Creat Clear Calc 140.54 Est GFR (MDRD) Af Amer 134 Est GFR (MDRD) Non-Af 111 BUN/Creatinine Ratio 7.4 L Glucose 98 Calcium 8.6 Urine Opiates Screen NEGATIVE Urine Methadone Screen NEGATIVE Ur Barbiturates Screen POSITIVE H Ur Phencyclidine Scrn NEGATIVE Ur Amphetamines Screen NEGATIVE MDMA (Ecstasy) Screen NEGATIVE U Benzodiazepines Scrn NEGATIVE Urine Cocaine Screen NEGATIVE U Cannabinoids Screen POSITIVE H Ur Drug Screen Comment Ethyl Alcohol 178.0 Treatment and Re-Evaluation :: CBC was normal white count 8.0 with a hemoglobin of 10.4. Normal differential. Chemistry studies unremarkable. Talk screen is positive for barbiturates and cannabinoids. EtOH is 178. Patient is been coming out of his room and frequently disruptive. He is able to be redirected. He was given 2 mg of p.o. Ativan for anxiety. Repeat EtOH level is being drawn at this time we sent out to oncoming physician. I anticipate his alcohol will be at a level at which she could be evaluated by crisis. He is requesting to go to a dual diagnosis facility to help him with his psychiatric problems and his detox. He specifically requests [facility] in [place]. We will have crisis evaluate the patient. At this time he has had no signs or symptoms of alcohol withdrawal. Discharge Plan Triage Chief Complaint: Substance Abuse ED Provider: Tiny Prasad Dx/Rx/DC Orders Clinical Impression: Alcohol abuse, Suicidal ideation Prescriptions: No Action pantoprazole [Protonix] 40 mg Tablet,Delayed Release (Dr/Ec) 40 mg PO DAILY levothyroxine 150 mcg Tablet 150 mcg PO DAILY lisinopril 40 mg Tablet 40 mg PO DAILY escitalopram oxalate [Lexapro] 20 mg Tablet 20 mg PO DAILY amlodipine 5 mg Tablet 5 mg PO DAILY 30 Days Qty: 30 0RF ferrous sulfate [FeroSul] 325 mg (65 mg iron) tablet 325 mg PO DAILY hydroxyzine pamoate [Vistaril] 50 mg Capsule 50 mg PO BID Primary Care Provider: Care Physician,No Primary Referrals: Care Physician,No Primary [Primary Care Provider] -
[2023-10-22 20:37] LABS: Amphetamine Urine VISTA NEGATIVE (<1000 ng/mL); Barbiturate Urine VISTA POSITIVE (< 200 ng/mL); Benzodiazepine Urine VISTA NEGATIVE (< 200 ng/mL); Cocaine Urine VISTA NEGATIVE (< 300 ng/mL); Ecstacy Urine VISTA NEGATIVE (< 500 ng/mL); Methadone Urine VISTA NEGATIVE (< 300 ng/mL); PCP Urine VISTA NEGATIVE (< 25 ng/mL); THC Urine VISTA POSITIVE (< 50 ng/mL); Vista UDS pH Range 6
[2023-10-22 20:47] LABS: Basophil# 0.07 X10^3/uL; Basophil% 0.9 % (0-1); Eosinophil# 0.45 X10^3/uL; Eosinophils% 5.6 % (0-5); Hematocrit 35.6 % (40-54); Hemoglobin 10.4 g/dL (13.0-16.5); Lymphocyte % 22.6 % (19-41); Mean Corp Hgb Conc 29.2 g/dL (32-36); Mean Corpuscular Hgb 21.7 pg (27.0-32.0); Mean Corpuscular Volume 74.2 fL (80-94); Mean Platelet Vol. 9.3 fl (6.2-12.0); Monocyte# 0.58 X10^3/uL; Monocyte% 7.3 % (0-10); NRBC Flagged by Analyzer 0 % (0-5); Neutrophil # 5.04 X10^3/uL (2.7-7.7); Neutrophil % 63.2 % (47-70); Platelet Count 351 K/mm3 (150-450); RBC Distribution Width CV 17.8 % (11.6-14.6); RBC Distribution Width SD 46.9 fl (35.1-43.9)
[2023-10-22 21:00] LABS: Anion Gap 2 (5-15); BUN 6 mg/dL (7-18); BUN/Creat Ratio 7.4 RATIO (10-20); Calcium,Total 8.6 mg/dL (8.5-10.1); Chloride 109 mmol/L (98-107); Creatinine, Serum 0.81 mg/dL (0.70-1.30); EST Glomerular Filtration Rate 111 mL/min (>60); Est Glom Filt Rate - Afr Amer 134 mL/min (>60); Estimated Creatinine Clearance 140.54 ml/min; Glucose 98 mg/dL (74-106); Potassium 4.4 mmol/L (3.5-5.1); Sodium Level 142 mmol/L (136-145)
[2023-10-22 21:31] VITALS: RESP 15
[2023-10-22] MEDS: LORazepam 1 MG Tablet 2 MG PO (22:23)
[2023-10-22 22:59] VITALS: BP 129/80; PULSE 101; RESP 15; TEMP 36.6; O2SAT 99
[2023-10-23] MEDS: hydrOXYzine PAM 25 MG Capsule 50 MG PO (01:44)
[2023-10-23 02:00] VITALS: RESP 15
[2023-10-23] MEDS: Ibuprofen 600 MG Tablet PO (03:30)
[2023-10-23 03:34] VITALS: BP 131/89; PULSE 108; RESP 15; O2SAT 96
[2023-10-23] MEDS: Lidocaine 5% Patch 1 PATCH TOPICAL (05:36)
[2023-10-23 05:45] VITALS: BP 144/73; PULSE 114; RESP 15; TEMP 36.7; O2SAT 96
--- NOTE | 2023-10-23 08:25 | ED.RN ---
CRISIS TO SEE PT. CRISIS STATES PT IS REQUESTING DETOX. PT VERY AGITATED, COMPLAINING ABOUT BREAKFAST THAT WAS BROUGHT TO HIM, THROWING TRAY IN ROOM. PT THREATENING TO KICK-ASS.
--- NOTE | 2023-10-23 08:26 | ED.RN ---
pt cussing, calling staff names, aggressive towards staff.
--- NOTE | 2023-10-23 08:29 | ED.RN ---
per dr. alvarado pt is no longer in need of a sitter. crisis states pt is not actively suicidal.
--- NOTE | 2023-10-23 08:31 | ED.RN ---
PT STANDS IN DOOR WAY SAYS WE DONT KNOW WHO WE ARE DEALING WITH, HE IS GOING TO GO THE FUCK OFF. OFFICER ZEENAT MADDOXS, PT TELLS PD THAT THE HOSPITAL WILL NOT GIVEN HIM A GOOD BREAKFAST, AND TO GET MEDICATED.
--- NOTE | 2023-10-23 08:31 | ED.RN ---
pt threatening staff with his great legal team and little sister, you know i'm gonna go off.
--- NOTE | 2023-10-23 08:32 | ED.RN ---
pd in department speaking with pt. pt continues to demand food, beverages, etc.
[2023-10-23] MEDS: Phenobarbital 32.4 MG Tablet PO (08:43)
[2023-10-23 08:44] VITALS: BP 134/78; PULSE 86; RESP 16; TEMP 36.6; O2SAT 99
[2023-10-23 08:53] VITALS: BP 134/78; PULSE 64; RESP 14; TEMP 36.4; O2SAT 99
== END 2023-10-23 08:54 | disposition home or self-care (01) ==
PROVIDERS: Emergency Provider Emergency Medicine; Visit Provider Emergency Medicine
DX: R45.851 Suicidal ideations (principal); F10.10 Alcohol abuse, uncomplicated; I10 Essential (primary) hypertension; F17.210 Nicotine dependence, cigarettes, uncomplicated; F41.8 Other specified anxiety disorders; E03.9 Hypothyroidism, unspecified; Z79.899 Other long term (current) drug therapy; Z90.49 Acquired absence of other specified parts of digestive tract; Y90.6 Blood alcohol level of 120-199 mg/100 ml
CPT/HCPCS: 80048; 80307; 82077; 85025; 87811; 99284; A4216

== ENCOUNTER 2023-10-24 16:20 | Emergency (ER) | payer MEDICAID, SELFPAY ==
[2023-10-24 16:21] VITALS: BP 164/112; PULSE 127; RESP 18; TEMP 35.5; O2SAT 95
== END 2023-10-24 17:00 | disposition left against medical advice (07) ==
LOC: ED 17:05
DX: F10.90 Alcohol use, unspecified, uncomplicated (principal)

== ENCOUNTER 2023-10-24 19:43 | Inpatient (IN) | payer MEDICAID, SELFPAY ==
[2023-10-24 19:44] VITALS: BP 190/108; PULSE 111; RESP 16; TEMP 36.8; O2SAT 98; BMI 43.5
[2023-10-24 22:22] LABS: Absolute Lymphocyte Count 1.63 X10^3/uL (0.83-4.51); Absolute Neutrophil Count 5.1 X10^3/uL (2.0-7.7); Basophil# 0.07 X10^3/uL; Basophil% 0.9 % (0-1); Eosinophil# 0.66 X10^3/uL; Eosinophils% 8.1 % (0-5); Hemoglobin 10.1 g/dL (13.0-16.5); Lymphocyte # 1.63 X10^3/ul (0.83-4.51); Mean Corp Hgb Conc 29.7 g/dL (32-36); Mean Corpuscular Hgb 21.5 pg (27.0-32.0); Mean Corpuscular Volume 72.5 fL (80-94); Mean Platelet Vol. 9.3 fl (6.2-12.0); Monocyte# 0.64 X10^3/uL; Monocyte% 7.9 % (0-10); NRBC Flagged by Analyzer 0 % (0-5); Neutrophil % 62.6 % (47-70); Platelet Count 353 K/mm3 (150-450); RBC Distribution Width CV 17.7 % (11.6-14.6); RBC Distribution Width SD 45.5 fl (35.1-43.9); Red Blood Count 4.69 M/mm3 (4.6-6.2); White Blood Count 8.1 K/mm3 (4.4-11.0)
--- NOTE | 2023-10-24 22:28 | EX.ED.SAOD ---
HPI History of Present Illness Chief Complaint: Substance Abuse Narrative Narrative: 43-year-old male past medical history of alcohol dependence and depression presents for detox from alcohol. He states been 28 hours since he drank last. He usually drinks 20 cans of higher potency natural light. He states that he wants to quit drinking. He was last through detox at this facility over a year ago. Few months ago, he was at another facility. He denies any suicidal ideation or homicidal ideation but does admit that he is come to the emergency department intoxicated in the past frequently, and becomes belligerent, so he feels that he has a bad reputation. He states he really wants help with stopping alcohol use. He knows he needs medical detox. [facility] Medical History Alcohol abuse Alcohol withdrawal Anxiety and depression Cannabis use disorder Hypertension Hypothyroidism Morbid obesity Home Medications levothyroxine 150 mcg tablet 150 mcg PO DAILY thyroid 06/23/22 [History Last Taken 06/21/22] lisinopril 40 mg tablet 40 mg PO DAILY HTN 06/23/22 [History Last Taken 06/21/22] pantoprazole 40 mg tablet,delayed release (Protonix) 40 mg PO DAILY GERD 06/23/22 [History Last Taken 06/21/22] ferrous sulfate 325 mg (65 mg iron) tablet (FeroSul) 325 mg PO DAILY 03/18/23 [History Last Taken Unknown] hydroxyzine pamoate 50 mg capsule (Vistaril) 50 mg PO BID 04/14/23 [History Last Taken Unknown] aripiprazole 5 mg tablet 5 mg PO DAILY 10/23/23 [History Last Taken Unknown] duloxetine 60 mg capsule,delayed release 60 mg PO DAILY 10/23/23 [History Last Taken Unknown] Allergy/AdvReac Type Severity Reaction Status Date / Time haloperidol [From Haldol] AdvReac Other Verified 10/24/23 16:21 Family History Father Diabetes Mother CAD (coronary artery disease) Surgical History History of appendectomy Social History housing: homeless Smoking Status: Current every day smoker tobacco type: cigarettes how long ago did patient quit smoking: Reports quitting in 2016, prior to this 1 ppd since teen until quit. alcohol intake: current Previous attempts at quittin details: Reports currently 12-19 tall boys daily. substance use type: marijuana ROS ROS ED ROS Narrative Constitutional: No fever, no chills. HEENT: No sore throat. No neck pain. Visual changes earlier today-resolved. No rhinorrhea. Cardiovascular: No chest pain. No palpitations. No pedal edema. Respiratory: No cough, no shortness of breath. Abdominal: No abdominal pain. No nausea. No vomiting. Genitourinary: No dysuria. No hematuria. Musculoskeletal: No myalgias. No arthralgias. Neurologic: No headaches. No dizziness. No lightheadedness. Mild shakiness. Skin: No rash. No change in color. Psychiatric: Positive depression. No anxiety. No suicidal ideation, no homicidal ideation. No active hallucinations. EXAM Physical Exam Narrative Exam Narrative: Afebrile. Vital signs noted. HEENT: Normocephalic. Atraumatic. PERRL, EOMI. Neck soft and supple. No point tenderness or step off. Cardiovascular: Positive tachycardia, no murmurs, rubs, or gallops appreciated. Respiratory: No tachypnea. Lungs clear to auscultation bilaterally. Gastrointestinal: Abdomen soft, obese, nontender, with normoactive bowel sounds. No rebound or guarding. Neurological: Awake. Alert. Nonfocal, nonlateralizing. Skin: No rash. Normal color. No pallor. Musculoskeletal: No pedal edema. Full range of motion extremities. Const Vital Signs: 10/24/23 19:44 Temperature 98.2 F Temperature Source Temporal Pulse Rate 111 H Respiratory Rate 16 Blood Pressure 190/108 H Blood Pressure Mean 135 Pulse Ox 98 Oxygen Delivery Method Room Air MDM MDM MDM Narrative Medical decision making narrative: Reviewed the patient's prior records. He has agreed to the inpatient detox rules. Medical screening labs were obtained. I discussed patient with Dr. Rivas who is excepted him as an inpatient. He will be given folate and thiamine orally. Dr. Rivas states he can have 1 Ativan here we will start him on phenobarbital on the floor. I reviewed the initial laboratory work that came back which was a CBC and he has normal white count of 8.1 with hemoglobin stable at 10.1, platelet count normal at 353. At this point in time, he will be admitted for detox from alcohol. Disposition is admit in stable condition. History & Record Review Discussion w/independent historian: Patient Additional record(s) reviewed:: Prior inpatient record, Prior ED visit and Prior labs Lab Data Attestation: I reviewed the patient's lab results. Labs: Laboratory Results - last 24 hr 10/24/23 10/24/23 21:52 22:02 WBC 8.1 RBC 4.69 Hgb 10.1 L Hct 34.0 L MCV 72.5 L MCH 21.5 L MCHC 29.7 L RDW Std Deviation 45.5 H RDW Coeff of Nasima 17.7 H Plt Count 353 MPV 9.3 Immature Gran % (Auto) 0.500 Neut % (Auto) 62.6 Lymph % (Auto) 20.0 Reagan % (Auto) 7.9 Eos % (Auto) 8.1 H Baso % (Auto) 0.9 Absolute Neuts (auto) 5.1 Absolute Lymphs (auto) 1.63 Nucleated RBC % 0 Ur Drug Screen Comment Management Discussion w/another healthcare provider: Hospitalist (Dr. Rivas) Discharge Plan Triage Chief Complaint: Substance Abuse ED Provider: Ta Jin Dx/Rx/DC Orders Clinical Impression: Desire for detoxification, Alcohol dependence, Depressed Primary Care Provider: Care Physician,No Primary
[2023-10-24] MEDS: Thiamine Hydrochloride 100 MG Tablet PO (22:34)
[2023-10-24] MEDS: Folic Acid 1 MG Tablet 2 MG PO (22:34)
[2023-10-24 22:37] LABS: Amphetamine Urine VISTA NEGATIVE (<1000 ng/mL); Barbiturate Urine VISTA POSITIVE (< 200 ng/mL); Benzodiazepine Urine VISTA POSITIVE (< 200 ng/mL); Cocaine Urine VISTA NEGATIVE (< 300 ng/mL); Ecstacy Urine VISTA NEGATIVE (< 500 ng/mL); Methadone Urine VISTA NEGATIVE (< 300 ng/mL); PCP Urine VISTA NEGATIVE (< 25 ng/mL); THC Urine VISTA POSITIVE (< 50 ng/mL); Vista UDS pH Range 5
--- NOTE | 2023-10-24 22:41 | HP.PCM.HOS_ITS ---
HPI - General General Date of Admission: 10/24/23 Date of Service: 10/24/23 Chief Complaint: Alcohol / polysubstance withdrawal HPI Narrative CHEN GRANADO, is a 43 M with a past medical history of essential hypertension, hypothyroidism, morbid obesity; BMI 43.6 this admission, history of depression; with suicidal ideation, history of alcohol abuse; with patient drinking approximately twenty 12 ounce cans of Natural Light and polysubstance abuse; with a difficult personality complicating previous admissions with his last detox at this facility approximately 1 year ago who presents to [facility] ER complaining of alcohol and polysubstance withdrawal. Mr. Granado reports his symptoms began about 28 hours prior to admission when he last drank alcohol, apparently just prior to going to [facility]. He denies any suicidal or homicidal ideation but he does admit to having a bad reputation with previous belligerent behavior. Nevertheless, he really wants help with alcohol and polysubstance cessation. He denies associated fever, chills, nausea or vomiting but he does admit to being homeless at this time. In the ER he was diagnosed with acute alcohol withdrawal in the setting of chronic alcohol /polysubstance abuse his urine drug screen this admission positive for barbiturates, benzodiazepines and cannabis along with an ethyl alcohol level that was undetectable complicated by uncontrolled hypertension evidenced by an elevated blood pressure of 190/108 mmHg present on admission and he was then admitted to the general medical floor under observation status for ongoing care for a stay that is expected to be less than 48 hours. [facility] Medical History Alcohol abuse Alcohol withdrawal Anxiety and depression Cannabis use disorder Hypertension Hypothyroidism Morbid obesity Home Medications levothyroxine 150 mcg tablet 150 mcg PO DAILY thyroid 06/23/22 [History Last Taken 06/21/22] lisinopril 40 mg tablet 40 mg PO DAILY HTN 06/23/22 [History Last Taken 06/21/22] pantoprazole 40 mg tablet,delayed release (Protonix) 40 mg PO DAILY GERD 06/23/22 [History Last Taken 06/21/22] ferrous sulfate 325 mg (65 mg iron) tablet (FeroSul) 325 mg PO DAILY vitamin 03/18/23 [History Last Taken Unknown] hydroxyzine pamoate 50 mg capsule (Vistaril) 50 mg PO BID anxiety 04/14/23 [History Last Taken Unknown] aripiprazole 5 mg tablet 5 mg PO DAILY mental health 10/23/23 [History Last Taken Unknown] duloxetine 60 mg capsule,delayed release 60 mg PO DAILY mental health 10/23/23 [History Last Taken Unknown] Allergy/AdvReac Type Severity Reaction Status Date / Time haloperidol [From Haldol] AdvReac Other Verified 10/24/23 16:21 Family History Father Diabetes Mother CAD (coronary artery disease) Surgical History History of appendectomy Social History housing: homeless Smoking Status: Former smoker how long ago did patient quit smoking: Reports quitting in 2016, prior to this 1 ppd since teen until quit. alcohol intake: current Previous attempts at quittin details: Reports currently 12-19 tall boys daily. substance use type: marijuana ROS ROS Narrative Review of systems: Constitutional: Patient denies fevers or chills. Eyes: Patient denies visual changes. ENT: Patient denies runny nose or sore throat. Cardiovascular: Patient denies chest pain, palpitations or lower extremity edema. Respiratory: Patient denies shortness of breath or cough. Abdominal: Patient denies abdominal pain, nausea or vomiting. Genitourinary: Patient denies dysuria, hematuria or urinary frequency. Musculoskeletal: Patient denies myalgias or arthralgias. Neurologic: Patient denies headache, dizziness or focal neurologic deficits. However, he does admit to mild tremors. Skin: Patient has facial flushing appears chronic. Psychiatric: Positive for depression. He denies acute anxiety, suicidal ideation or homicidal ideation at this time. He also denies active hallu cinations. Allergic: Patient denies lip swelling, tongue swelling or urticaria. Hematologic: Patient denies easy bleeding or easy bruisability. 14 point review systems otherwise negative except for positives noted above in HPI. Vital Signs Vital Signs Vital Signs: 10/24/23 19:44 Temperature 98.2 F Temperature Source Temporal Pulse Rate 111 H Respiratory Rate 16 Blood Pressure 190/108 H Blood Pressure Mean 135 Pulse Ox 98 Oxygen Delivery Method Room Air Weight Weight: 348 lb 9.6 oz Body Mass Index (BMI) 43.5 Physical Exam Const alert, oriented x3 and no apparent distress Constitutional Narrative: Patient is morbidly obese and appears unkempt. General Appearance: cooperative HEENT normocephalic, head/scalp atraumatic, hearing grossly normal bilaterally, moist oral mucous membranes and oropharynx normal Eyes PERRL and EOMs intact bilaterally Eyes Narrative: Conjunctivae injected. Neck no lymphadenopathy, supple and no JVD Resp normal respiratory effort, no retractions, no use of accessory muscles and clear to auscultation bilaterally Cardio regular rate and regular rhythm GI normal to inspection, nondistended, normoactive bowel sounds, soft to palpation, non-tender and non-distended GI Narrative: Morbidly obese. Extremity Extremity Narrative: Patient has 1-2+ lower extremity edema that appears chronic. Skin Skin Narrative: Patient has evidence of chronic facial flushing but no rash. Neuro oriented x3, CN's II-XII intact bilaterally, moves all extremities and no focal motor deficits Sensorium / Orientation: awake, alert, oriented to person, oriented to place and oriented to time Speech: speech normal Motor Exam: strength 5/5 throughout Psych Mood & Affect: anxious Results Medical Records Data Attestation: I reviewed the patient's medical records Lab / Micro Data Attestation: I reviewed the patient's lab results. 10/24/23 22:02 10/24/23 22:02 Labs: Laboratory Results - last 24 hr 10/24/23 21:52: Urine Opiates Screen NEGATIVE, Urine Methadone Screen NEGATIVE, Ur Barbiturates Screen POSITIVE H, Ur Phencyclidine Scrn NEGATIVE, Ur Amphetamines Screen NEGATIVE, MDMA (Ecstasy) Screen NEGATIVE, U Benzodiazepines Scrn POSITIVE H, Urine Cocaine Screen NEGATIVE, U Cannabinoids Screen POSITIVE H , Ur Drug Screen Comment 10/24/23 22:02: WBC 8.1, RBC 4.69, Hgb 10.1 L, Hct 34.0 L, MCV 72.5 L, MCH 21.5 L, MCHC 29.7 L, RDW Std Deviation 45.5 H, RDW Coeff of Nasima 17.7 H, Plt Count 353, MPV 9.3, Immature Gran % (Auto) 0.500, Neut % (Auto) 62.6, Lymph % (Auto) 20.0, Wetzel % (Auto) 7.9, Eos % (Auto) 8.1 H, Baso % (Auto) 0.9, Absolute Neuts (auto) 5.1, Absolute Lymphs (auto) 1.63, Nucleated RBC % 0 Assessment & Plan Assessment/Plan (1) Alcohol abuse: (2) Alcohol dependence: QUALIFIERS: Substance use status: uncomplicated Qualified Code(s): F10.20 - Alcohol dependence, uncomplicated (3) Desire for detoxification: (4) Uncontrolled hypertension: PLAN: Plan 1. Acute alcohol/polysubstance withdrawal in the setting of chronic alcohol/polysubstance abuse - Admit to general medical floor under observation status. Continue supportive care and give phenobarbital taper per protocol. Alcohol and polysubstance cessation will be strongly encouraged. Finally, we will consult case management and substance abuse counselor to see patient on rounds in the a.m. for further recommendations with help appreciated in advance. 2. Uncontrolled hypertension evidenced by blood pressure of 190/108 mmHg present on admission complicating #1 - Continue home medications plus give IV hydralazine as needed for systolic blood pressure greater than 160 mmHg. 3. Depression with anxiety compounding #1 & #2 - Resume home medications as previous with as needed Vistaril for breakthrough symptoms. 4. Morbid obesity; with BMI of 43.6 this admission - Weight loss will be recommended. Check TSH. 5. Hypothyroidism - Continue Synthroid as previous and check TSH. 6. DVT prophylaxis - Give Lovenox 40 mg SQ twice daily plus SCDs. Total time: Approximately 45 minutes. Charges/Coding Visit Charges OBSV E&M: 17532 Observ/hosp same date L1
[2023-10-24 22:54] LABS: Alcohol, Blood (Medical)-Serum < 3.0 mg/dL
[2023-10-24 23:02] LABS: ALB/GLOB Ratio 0.8 RATIO (0.9-2.4); AST(SGOT) 21 U/L (15-37); Alanine Aminotransfer ALT/SGPT 44 U/L (16-61); Albumin, Serum 3.3 g/dL (3.2-5.0); Alkaline Phosphatase 107 U/L (45-117); Anion Gap 6 (5-15); BUN 8 mg/dL (7-18); BUN/Creat Ratio 9.8 RATIO (10-20); Calcium,Total 8.5 mg/dL (8.5-10.1); Chloride 106 mmol/L (98-107); Creatinine, Serum 0.82 mg/dL (0.70-1.30); EST Glomerular Filtration Rate 109 mL/min (>60); Est Glom Filt Rate - Afr Amer 132 mL/min (>60); Estimated Creatinine Clearance 138.83 ml/min; Globulin 3.9 g/dL (2.2-4.2); Glucose 105 mg/dL (74-106); Protein, Total 7.2 g/dL (6.4-8.2); Sodium Level 139 mmol/L (136-145)
[2023-10-24 23:25] VITALS: BP 177/101; PULSE 112; RESP 18; O2SAT 94
[2023-10-24 23:47] VITALS: BMI 43.3
[2023-10-25] VITALS (7 sets, daily range): BP systolic 139–162; BP diastolic 88–97; PULSE 83–110; RESP 15–18; TEMP 36.6–37.2; O2SAT 95–99
[2023-10-25] MEDS: hydrOXYzine PAM 25 MG Capsule 50 MG PO ×3 (01:39→21:37)
[2023-10-25] MEDS: Pantoprazole Sodium 40 MG Tablet PO ×2 (01:40→08:21)
[2023-10-25] MEDS: Gabapentin 300 MG Capsule PO ×3 (02:45→21:37)
[2023-10-25] MEDS: Phenobarbital 32.4 MG Tablet 64.8 MG PO ×6 (03:45→23:08)
[2023-10-25] MEDS: Levothyroxine 150 MCG Tablet PO (06:47)
--- NOTE | 2023-10-25 07:32 | PCM.PN.HOSP ---
Reason for Visit Reason for Visit: Diagnoses Alcohol abuse, uncomplicated (10/24/23) Alcohol dependence, uncomplicated (10/24/23) Essential (primary) hypertension (10/24/23) Subjective Subjective 43-year-old gentleman with history of depression with anxiety polysubstance dependence including alcohol admitted with acute alcohol withdrawal Objective Data Objective Data Vital Signs: Vital Signs Temp Pulse Resp BP Pulse Ox O2 Del Method 98.3 F 83 16 149/97 H 97 Room Air 10/25/23 04:30 10/25/23 04:30 10/25/23 04:30 10/25/23 04:30 10/25/23 04:30 10/25/23 04:30 Oxygen Delivery Method Room Air Weight: 158.1 kg Body Mass Index (BMI) 43.3 Intake & Output: Intake and Output for Last 24 Hours 10/23/23 10/24/23 10/25/23 23:59 23:59 23:59 Intake Total 900 / 900 Balance 900 / 900 Lab / Micro Data 10/24/23 22:02 10/24/23 22:02 Labs: Laboratory Results - last 24 hr 10/24/23 21:52: Urine Opiates Screen NEGATIVE, Urine Methadone Screen NEGATIVE, Ur Barbiturates Screen POSITIVE H, Ur Phencyclidine Scrn NEGATIVE, Ur Amphetamines Screen NEGATIVE, MDMA (Ecstasy) Screen NEGATIVE, U Benzodiazepines Scrn POSITIVE H, Urine Cocaine Screen NEGATIVE, U Cannabinoids Screen POSITIVE H, Ur Drug Screen Comment 10/24/23 22:02: WBC 8.1, RBC 4.69, Hgb 10.1 L, Hct 34.0 L, MCV 72.5 L, MCH 21.5 L, MCHC 29.7 L, RDW Std Deviation 45.5 H, RDW Coeff of Nasima 17.7 H, Plt Count 353, MPV 9.3, Immature Gran % (Auto) 0.500, Neut % (Auto) 62.6, Lymph % (Auto) 20.0, Webb % (Auto) 7.9, Eos % (Auto) 8.1 H, Baso % (Auto) 0.9, Absolute Neuts (auto) 5.1, Absolute Lymphs (auto) 1.63, Nucleated RBC % 0, Sodium 139, Potassium 4.0, Chloride 106, Carbon Dioxide 27.0, Anion Gap 6, BUN 8, Creatinine 0.82, Estim Creat Clear Calc 138.83, Est GFR (MDRD) Af Amer 132, Est GFR (MDRD) Non-Af 109, BUN/Creatinine Ratio 9.8 L, Glucose 105, Calcium 8.5, Total Bilirubin 0.20, AST 21, ALT 44, Alkaline Phosphatase 107, Total Protein 7.2, Albumin 3.3, Globulin 3.9, Albumin/Globulin Ratio 0.8 L, TSH 12.70 H, Ethyl Alcohol < 3.0 Physical Exam Narrative GENERAL: cooperative HEENT: Atraumatic; normocephalic EYES; Anicteric, Normal Conjunctiva NECK; supple, normal thyroid, RESPIRATORY: Diminished to auscultation CARDIOVASCULAR: Regular S1 S2, GI: soft, normoactive bowel sounds, : No Renal angle tenderness; EXTREMITIES: No edema, no clubbing, MUSCULOSKELETAL: no muscle wasting NEURO: Awake; no lateralizing signs. SKIN: No Rash PSYCH; Flat affect Assessment & Plan Assessment/Plan (1) Alcohol dependence: QUALIFIERS: Substance use status: uncomplicated Qualified Code(s): F10.20 - Alcohol dependence, uncomplicated PLAN: Plan Patient is a 43-year-old gentleman with history of alcohol abuse admitted with acute alcohol withdrawal 1. Acute alcohol withdrawal ? Patient is on phenobarb taper in addition to symptomatic treatment 2. Hypertension - Blood pressure controlled, home medications continued with dose adjustment as needed 3. Depression with anxiety ? Patient is on duloxetine continue 4. Class III obesity with BMI 43.3 ? Weight loss advised 5. Hypothyroidism - Patient is on levothyroxine home dose continued 6. DVT prophylaxis - On enoxaparin Time spent in the patient's overall evaluation,decision-making process, review of diagnostic data, adjustment of management, discussion with other providers, nursing nursing and ancillary staff involved in patient's care documentation, 35 Minutes Charges/Coding Visit Charges Inpatient E&M: 17147 Subs Hosp L2
[2023-10-25] MEDS: Lisinopril 40 MG Tablet PO (08:13)
[2023-10-25] MEDS: Thiamine Hydrochloride 100 MG Tablet PO (08:14)
[2023-10-25] MEDS: ARIPiprazole 5 MG Tablet PO (08:14)
[2023-10-25] MEDS: Ferrous Sulfate 325 MG Tablet PO (08:14)
[2023-10-25] MEDS: Folic Acid 1 MG Tablet PO (08:14)
[2023-10-25] MEDS: Ondansetron 8 MG Tablet PO ×2 (08:21→18:50)
[2023-10-25] MEDS: Ibuprofen 400 MG Tablet PO ×2 (10:34→18:50)
[2023-10-25] MEDS: Influenza Virus Vac Quad 23-24 60 MCG/0.5 ML SYRINGE IM (10:35)
--- NOTE | 2023-10-25 11:33 | ADDICTION ---
This radio news writer met with PT to conduct ASAM, MSE, AUDIT assessments and to plan for d/c. PT A+Ox4 and participated actively. All assessments completed and placed in PT's chart. PT plans to f/u with [facility] for follow-up inpatient treatment services. They will provide transportation. They will arrive afternoon. They are traveling 3.5 hours to transport. If he leaves AMA call .
--- NOTE | 2023-10-25 14:38 | CHAPLAIN ---
Type of Pastoral Visit _x__ Initial Visit ___ Follow-up Visit ___ On-call Visit ___ General Patient Visit ___ Spiritual Assessment ___ Family Conference ___ Bereavement ___ Rapid Response ___ Code Blue ___ Other (describe below) Pastoral Care Referral From _x__ Patient ___ Family _x__ Nurse ___ Physician ___ Food Editor ___ Last Scourer ___ Other (describe below) Sacrament/Intervention _x__ Active listening ___ Anointing ___ Zoroastrianism ___ Bereavement ___ Communion _x__ Minnie exploration ___ _x__ Life review _x__ Prayer ___ Reconciliation ___ Sacrament of Sick _x__ Supportive presence ___ Wedding ___ Other (describe below) Pastoral Comments patient requested visit by data officer through his RN; this data officer saw this patient earlier this year in a previous admission; pt is very talkative and shares much life review, recent life events in [place] and on the streets, his spiritual questions and hopes; pt does have some goals in life that he talks about from his spiritual perspective but admits that he needs to change in order for those goals to be realized; pt wants help and yet is realistic about his downfall; pt expresses thanks for time to listen and for the prayers; pt asks for a Bible and for inspirational reading pamphlet;
[2023-10-25] MEDS: traZODone 100 MG Tablet PO (21:37)
[2023-10-26 03:05] VITALS: BP 134/82; PULSE 60; RESP 16; TEMP 36.6; O2SAT 97
[2023-10-26] MEDS: Levothyroxine 150 MCG Tablet PO (03:07)
[2023-10-26] MEDS: hydrOXYzine PAM 25 MG Capsule 50 MG PO ×4 (03:07→22:25)
[2023-10-26] MEDS: Phenobarbital 32.4 MG Tablet 64.8 MG PO ×6 (03:07→23:07)
[2023-10-26] MEDS: Gabapentin 300 MG Capsule PO ×2 (05:26→14:19)
--- NOTE | 2023-10-26 07:54 | PCM.PN.HOSP ---
Reason for Visit Reason for Visit: Diagnoses Alcohol abuse, uncomplicated (10/24/23) Alcohol dependence, uncomplicated (10/24/23) Essential (primary) hypertension (10/24/23) Subjective Subjective Patient appears quite restless otherwise has had a relatively uneventful stay Objective Data Objective Data Vital Signs: Vital Signs Temp Pulse Resp BP Pulse Ox O2 Del Method 97.8 F 60 16 134/82 H 97 Room Air 10/26/23 03:05 10/26/23 03:05 10/26/23 03:05 10/26/23 03:05 10/26/23 03:05 10/26/23 03:05 Oxygen Delivery Method Room Air Weight: 158.1 kg Body Mass Index (BMI) 43.3 Intake & Output: Intake and Output for Last 24 Hours 10/24/23 10/25/23 10/26/23 23:59 23:59 23:59 Intake Total 900 / 900 Balance 900 / 900 Lab / Micro Data 10/24/23 22:02 10/24/23 22:02 Physical Exam Narrative GENERAL: cooperative HEENT: Atraumatic; normocephalic EYES; Anicteric, Normal Conjunctiva NECK; supple, normal thyroid, RESPIRATORY: Diminished to auscultation CARDIOVASCULAR: Regular S1 S2, GI: soft, normoactive bowel sounds, : No Renal angle tenderness; EXTREMITIES: No edema, no clubbing, MUSCULOSKELETAL: no muscle wasting NEURO: Awake; no lateralizing signs. SKIN: No Rash PSYCH; Flat affect Assessment & Plan Assessment/Plan (1) Alcohol dependence: QUALIFIERS: Substance use status: uncomplicated Qualified Code(s): F10.20 - Alcohol dependence, uncomplicated PLAN: Plan Patient is a 43-year-old gentleman with history of alcohol abuse admitted with acute alcohol withdrawal 1. Acute alcohol withdrawal ? Patient is on phenobarb taper in addition to symptomatic treatment ? 10/26/2023 plan is for patient to be transferred to an inpatient rehab unit after his medical stabilization 2. Hypertension - Blood pressure controlled, home medications continued with dose adjustment as needed 3. Depression with anxiety ? Patient is on duloxetine continue 4. Class III obesity with BMI 43.3 ? Weight loss advised 5. Hypothyroidism - Patient is on levothyroxine home dose continued 6. DVT prophylaxis - On enoxaparin Time spent in the patient's overall evaluation,decision-making process, review of diagnostic data, adjustment of management, discussion with other providers, nursing nursing and ancillary staff involved in patient's care documentation, 35 Minutes Charges/Coding Visit Charges Inpatient E&M: 62041 Subs Hosp L2
[2023-10-26 08:00] VITALS: BP 142/88; PULSE 92; RESP 16; TEMP 36.7; O2SAT 100
[2023-10-26] MEDS: Lisinopril 40 MG Tablet PO (08:31)
[2023-10-26] MEDS: Pantoprazole Sodium 40 MG Tablet PO (08:32)
[2023-10-26] MEDS: Ibuprofen 400 MG Tablet PO ×3 (08:32→23:07)
[2023-10-26] MEDS: Ondansetron 8 MG Tablet PO (08:32)
[2023-10-26] MEDS: Thiamine Hydrochloride 100 MG Tablet PO (08:32)
[2023-10-26] MEDS: Folic Acid 1 MG Tablet PO (08:32)
[2023-10-26] MEDS: Loperamide 2 MG Capsule PO (08:32)
[2023-10-26] MEDS: ARIPiprazole 5 MG Tablet PO (08:32)
[2023-10-26] MEDS: Ferrous Sulfate 325 MG Tablet PO (08:32)
[2023-10-26 18:00] VITALS: BP 154/88; PULSE 110; RESP 14; TEMP 36.8; O2SAT 99
[2023-10-26 22:55] VITALS: BP 137/83; PULSE 108; RESP 18; TEMP 36.9; O2SAT 97
[2023-10-26] MEDS: traZODone 100 MG Tablet PO (23:07)
[2023-10-27 02:10] VITALS: BP 154/79; PULSE 97; RESP 18; TEMP 36.9; O2SAT 97
[2023-10-27] MEDS: Ondansetron 8 MG Tablet PO (02:23)
[2023-10-27] MEDS: Gabapentin 300 MG Capsule PO ×2 (02:23→10:32)
[2023-10-27] MEDS: Phenobarbital 32.4 MG Tablet 64.8 MG PO ×2 (03:47→06:40)
[2023-10-27] MEDS: hydrOXYzine PAM 25 MG Capsule 50 MG PO ×2 (06:39→11:24)
[2023-10-27] MEDS: Levothyroxine 150 MCG Tablet PO (06:40)
[2023-10-27 08:29] VITALS: BP 148/90; PULSE 102; RESP 18; TEMP 36.8; O2SAT 98
[2023-10-27] MEDS: Thiamine Hydrochloride 100 MG Tablet PO (08:33)
[2023-10-27] MEDS: Folic Acid 1 MG Tablet PO (08:33)
[2023-10-27] MEDS: Ferrous Sulfate 325 MG Tablet PO (08:33)
--- NOTE | 2023-10-27 08:50 | NURSING ---
Pt upset this am over some interactions with staff through the night. Reassurance given to patient and able to get patient to rest in his chair. Requesting to talk to Fabrizio when he gets here and Jaimee. Iliana REES medicating patient at this time. Dietary notified to send tray sooner than later since hope to discharge. Called rehab center with patient present- looking to be here 11-12. Pt upset thinking it was 10 but able to get him to settle and return to his room. Allowed pt 1/2 hour of phone to call his chief general pediatric clinic. He did call the aid to come back and get the phone at the end of the time. Pt also asking for his sweat shirt. said he was not demanding but upset if I didn't give to him. At this point, will provide shirt to attempt to keep pt settled for wait time for transport.
--- NOTE | 2023-10-27 09:58 | PCM.DC.SUM ---
Providers Date of Admission: 10/24/23 Date of Discharge: 10/27/23 Primary Care Physician: Monserrat Primary Care Phys Reason For Visit: ALCOHOL/POLYSUBSTANCE WITHDRAWAL Diagnosis Discharge Diagnosis (1) Alcohol dependence: Status: Acute Code(s): F10.20 - Alcohol dependence, uncomplicated Qualifiers: Substance use status: uncomplicated Qualified Code(s): F10.20 - Alcohol dependence, uncomplicated Plan Patient is a 43-year-old gentleman with history of alcohol abuse admitted with acute alcohol withdrawal 1. Acute alcohol withdrawal ? Patient is on phenobarb taper in addition to symptomatic treatment ? 10/26/2023 plan is for patient to be transferred to an inpatient rehab unit after his medical stabilization 2. Hypertension - Blood pressure controlled, home medications continued with dose adjustment as needed 3. Depression with anxiety ? Patient is on duloxetine continue 4. Class III obesity with BMI 43.3 ? Weight loss advised 5. Hypothyroidism - Patient is on levothyroxine home dose continued 6. DVT prophylaxis - On enoxaparin Time spent in the patient's overall evaluation,decision-making process, review of diagnostic data, adjustment of management, discussion with other providers, nursing nursing and ancillary staff involved in patient's care documentation, 35 Minutes Medications at Discharge Home Medications levothyroxine 150 mcg tablet 150 mcg PO DAILY thyroid 06/23/22 lisinopril 40 mg tablet 40 mg PO DAILY HTN 06/23/22 pantoprazole 40 mg tablet,delayed release (Protonix) 40 mg PO DAILY GERD 06/23/22 ferrous sulfate 325 mg (65 mg iron) tablet (FeroSul) 325 mg PO DAILY vitamin 03/18/23 hydroxyzine pamoate 50 mg capsule (Vistaril) 50 mg PO BID anxiety 04/14/23 aripiprazole 5 mg tablet 5 mg PO DAILY mental health 10/23/23 duloxetine 60 mg capsule,delayed release 60 mg PO DAILY mental health 10/23/23 Hospital Course Summary of Care Provided Minutes Spent on Discharge: 35 Physical Exam Narrative GENERAL: cooperative HEENT: Atraumatic; normocephalic EYES; Anicteric, Normal Conjunctiva NECK; supple, normal thyroid, RESPIRATORY: Diminished to auscultation CARDIOVASCULAR: Regular S1 S2, GI: soft, normoactive bowel sounds, : No Renal angle tenderness; EXTREMITIES: No edema, no clubbing, MUSCULOSKELETAL: no muscle wasting NEURO: Awake; no lateralizing signs. SKIN: No Rash PSYCH; Flat affect Weight / BMI Weight Weight: 158.1 kg Body Mass Index (BMI) 43.3 ABG / Lab / Microbiology Data 10/24/23 22:02 10/24/23 22:02 Meaningful Use Info Meaningful Use Diagnoses (Choose all that apply): None applicable Discharge Plan Admission Admit Date/Time: 10/24/23 23:09 Attending Provider: Vick Ramos Primary Care Provider: Care Physician,Monserrat Primary Consulting Providers: Vick Gao Discharge Orders/Prescriptions Prescriptions: Continued pantoprazole [Protonix] 40 mg Tablet,Delayed Release (Dr/Ec) 40 mg PO DAILY levothyroxine 150 mcg Tablet 150 mcg PO DAILY lisinopril 40 mg Tablet 40 mg PO DAILY ferrous sulfate [FeroSul] 325 mg (65 mg iron) tablet 325 mg PO DAILY hydroxyzine pamoate [Vistaril] 50 mg Capsule 50 mg PO BID aripiprazole 5 mg tablet 5 mg PO DAILY duloxetine 60 mg capsule,delayed release(DR/EC) 60 mg PO DAILY Referrals / Follow Up: Care Physician,No Primary [Primary Care Provider] - Disposition Disposition (needs filled in before D/C Order can be placed): Inpatient Rehab Unit/Facility Charges/Coding Visit Charges Inpatient E&M: 63033 Disch Hosp >30min
[2023-10-27] MEDS: Lisinopril 40 MG Tablet PO (10:32)
[2023-10-27] MEDS: Pantoprazole Sodium 40 MG Tablet PO (10:32)
[2023-10-27] MEDS: ARIPiprazole 5 MG Tablet PO (10:32)
--- NOTE | 2023-10-27 11:39 | PHA.DC_ITS ---
Pharmacy [facility] Reconciliation Pharmacy Service has performed discharge medication reconciliation for this patient. No new medications issued at time of discharge. Medications reviewed are from preivously reported home medications. The patient's discharge medication list was reviewed for discrepancies and discrepancies were resolved. Medications at Discharge Home Medications levothyroxine 150 mcg tablet 150 mcg PO DAILY thyroid 06/23/22 lisinopril 40 mg tablet 40 mg PO DAILY HTN 06/23/22 pantoprazole 40 mg tablet,delayed release (Protonix) 40 mg PO DAILY GERD 06/23/22 ferrous sulfate 325 mg (65 mg iron) tablet (FeroSul) 325 mg PO DAILY vitamin 03/18/23 hydroxyzine pamoate 50 mg capsule (Vistaril) 50 mg PO BID anxiety 04/14/23 aripiprazole 5 mg tablet 5 mg PO DAILY mental health 10/23/23 duloxetine 60 mg capsule,delayed release 60 mg PO DAILY mental health 10/23/23
--- NOTE | 2023-10-27 12:00 | CHAPLAIN ---
Type of Pastoral Visit ___ Initial Visit _x__ Follow-up Visit ___ On-call Visit ___ General Patient Visit ___ Spiritual Assessment ___ Family Conference ___ Bereavement ___ Rapid Response ___ Code Blue ___ Other (describe below) Pastoral Care Referral From _x__ Patient ___ Family ___ Nurse ___ Physician ___ Director Of Primary ___ Global Manager ___ Other (describe below) Sacrament/Intervention _x__ Active listening ___ Anointing ___ Caodaism ___ Bereavement ___ Communion ___ Minnie exploration ___ ___ Life review _x__ Prayer ___ Reconciliation ___ Sacrament of Sick _x__ Supportive presence ___ Wedding ___ Other (describe below) Pastoral Comments patient is to be discharged very soon and is waiting on his transportation to rehab facility; offer of support and presence; pt admits to some anxiety about going to this place for rehab purposes; listened to patient repeat his concerns and how he has been treated; patient welcomes a prayer for his support and being respectful to others (his request);
== END 2023-10-27 11:40 | DRG 775 ==
LOC: ED 22:12 → MS3 22:37
PROVIDERS: Admitting Provider Internal Medicine; Emergency Provider Emergency Medicine; Visit Provider Internal Medicine
DX: F10.239 Alcohol dependence with withdrawal, unspecified (principal); E03.9 Hypothyroidism, unspecified; E66.01 Morbid (severe) obesity due to excess calories; Z68.41 Body mass index [BMI] 40.0-44.9, adult; I10 Essential (primary) hypertension; F12.90 Cannabis use, unspecified, uncomplicated; F41.8 Other specified anxiety disorders; Z87.891 Personal history of nicotine dependence; Y90.9 Presence of alcohol in blood, level not specified
CPT/HCPCS: 80048; 80053; 80307; 82077; 83690; 84443; 85025; 87811; 93005; 96361; 96374; 96376; 99284; J7030; 90686; A4216